=== PATIENT | male | born 1940 | race Caucasian/White ===

== ENCOUNTER 2016-11-21 07:36 | Observation (INO) ==
--- NOTE | 2016-11-21 07:50 | Emergency Department Note ---
Disposition Clinical Impression: Near syncope, Renal insufficiency Disposition: Admitted As Inpatient Condition: Fair Referrals: NO,PCP [Non-Partnered Physician] - Forms: ED Satisfaction Letter Time of Disposition: 09:36 Dizziness HPI - General Chief Complaint: ED Dizziness Stated Complaint: dizzy Time Seen by Provider: 11/21/16 07:43 Source: patient Limitations: no limitations Nursing Notes Reviewed: Yes Vital Signs Reviewed: Yes - History of Present Illness HPI Narrative: 76-year-old who is here with his who states he's had dizziness and near syncope for the last 3 days. Patient has no history of that. Denies any pain. Pt Subjective Complaint: dizziness, lightheadedness, near syncope Onset (ago): day(s) (3) Timing: unsure Description: lightheadedness History of similar episodes: No History of trauma: No Severity: moderate Improves with: nothing Worsens with: nothing - Related Data Home Medications Medication Instructions Recorded Confirmed Lisinopril [Zestril] 10 mg PO DAILY 06/06/15 07/05/15 Megestrol Acetate [Megace] 400 mg PO DAILY 06/06/15 07/05/15 Previous Rx's Medication Instructions Recorded Aspirin [Adult Low Dose Aspirin EC] 81 mg PO DAILY #30 tablet. 06/06/15 Pantoprazole Sodium [Protonix] 40 mg PO DAILY #30 tab 06/06/15 Oxycodone HCl/Acetaminophen 1 each PO Q6-8H PRN #10 tablet 06/15/16 [Percocet 5-325 mg Tablet] Tamsulosin [Flomax] 0.4 mg PO DAILY #20 capsule 06/15/16 Allergies Allergy/AdvReac Type Severity Reaction Status Date / Time Iodinated Contrast Media - AdvReac Hallucinati Verified 06/15/16 02:30 Oral and ng All systems ED: reviewed and negative except as stated. Constitutional: Denies: fever, chills, weakness, weight change Eyes: Denies: eye pain, eye discharge, vision change ENT ED: Denies: ear pain, throat pain, dental pain, hearing loss, epistaxis, congestion, dysphagia Cardiovascular: Reports: other (Lightheaded). Denies: chest pain, palpitations , dyspnea on exertion, edema, syncope Respiratory: Denies: cough, dyspnea, wheezes, hemoptysis, stridor Gastrointestinal: Denies: abdominal pain, nausea, vomiting, diarrhea, constipation, hematemesis, melena, hematochezia Genitourinary: Denies: urgency, dysuria, frequency, hematuria Musculoskeletal: Denies: back pain, neck pain, arthralgia, myalgia Integumentary: Denies: rash, abrasion, lesions Neurological: Denies: headache, weakness, numbness, paresthesias, confusion, abnormal gait, vertigo Psychiatric: Denies: anxiety, depression, suicidal thoughts, homicidal thoughts , auditory hallucinations, visual hallucinations Endocrine: Denies: fatigue Hematological/Lymphatic: Denies: easy bleeding, easy bruising Allergic/Immunologic: Denies: facial swelling, urticaria Past Medical History - Past Medical History Medical history: Reports: cancer, CVA, hypertension, kidney stones Psychiatric history: Reports: no psych history - Social History Smoking Status: Light tobacco smoker Smokeless Tobacco Status: No Alcohol use: Reports: none Drug use: Reports: none Physical Exam - General Limitations: no limitations General appearance: alert - Head Head exam: atraumatic, normocephalic, normal inspection - Eye Eye exam: Present: normal appearance, PERRL, EOMI - ENT ENT exam: normal exam, normal oropharynx, mucous membranes moist - Neck Neck exam: Present: normal inspection, full ROM, trachea midline - Chest Chest inspection: Present: normal inspection, symmetric chest wall rise - Respiratory Respiratory exam: Present: normal lung sounds bilaterally - Cardiovascular Cardiovascular exam: Present: regular rate, normal rhythm, normal heart sounds - Abdominal Exam Abdominal exam: Present: soft, Non-Tender. Absent: tenderness, distention, guarding, rebound, rigidity - Extremities Exam Extremities exam: Present: normal inspection, full ROM. Absent: tenderness, pedal edema - Expanded Lower Extremity Exam Neurovascular/Tendon exam: Absent: motor deficit, sensory deficit, tendon deficit Gait: observed and normal - Back Exam Back exam: Present: normal inspection, full ROM. Absent: tenderness - Neurological Exam Neurological exam: Present: alert, oriented X3 - Psychiatric Psychiatric exam: Present: normal affect, normal mood - Skin Skin exam: Present: warm, dry, intact, normal color Course - Reevaluation(s) Reevaluation #1: 76-year-old male who comes in with his and states that he's had several episodes of dizziness with near syncope. This is new for him. Patient does have a history of renal insufficiency however today it looks little bit worse. Time: 09:35 Vital Signs Temperature 97.4 F L 11/21/16 07:38 Pulse Rate 98 11/21/16 07:38 Respiratory Rate 18 11/21/16 07:38 Blood Pressure 113/76 11/21/16 07:38 O2 Sat by Pulse Oximetry 98 11/21/16 07:38 Temperature 97.4 F L 11/21/16 07:38 Pulse Rate 73 11/21/16 08:30 Respiratory Rate 16 11/21/16 08:30 Blood Pressure 164/71 11/21/16 08:30 O2 Sat by Pulse Oximetry 99 11/21/16 08:30 Oxygen Delivery Oxygen Delivery Room Air Dizziness - Lab Data Lab results reviewed: Yes I reviewed the patient's lab results. Result diagrams: 11/21/16 08:00 11/21/16 08:00 Lab Results 11/21/16 11/21/16 11/21/16 Range/Units 08:00 08:00 08:00 WBC 7.9 (4.3-11.1) K/mcL RBC 4.39 (4.19-5.50) M/mcL Hgb 13.0 (12.9-16.9) g/dL Hct 39.4 (37.5-50.1) % MCV 89.7 (83.0-100.0) fL MCH 29.6 (28.0-33.3) pg MCHC 33.0 (31.6-35.5) g/dL RDW 13.1 (11.5-14.5) % Plt Count 246 (140-400) K/mcL MPV 11.4 (9.4-12.4) fL Immature Gran % 0.1 (0-4) % Seg Neutrophils % 31.2 % Lymphocytes % 36.7 % Monocytes % 11.4 % Eosinophils % 19.3 % Basophils % 1.3 % Neutrophils # 2.5 (1.6-8.9) K/mcL Lymphocytes # 2.9 (0.6-4.6) K/mcL Monocytes # 0.9 (0.0-1.3) K/mcL Eosinophils # 1.5 H (0.0-0.6) K/mcL Basophils # 0.1 (0.0-0.2) K/mcL Sodium 136 (136-145) mEq/L Potassium 4.2 (3.5-4.5) mEq/L Chloride 102 (98-109) mEq/L Carbon Dioxide 23 (19-29) mEq/L BUN 26 (8-26) mg/dL Creatinine 2.16 H (0.72-1.25) mg/dL Est GFR ( Amer) 36 L (> 60) Est GFR (Non-Af Amer) 30 L (> 60) BUN/Creatinine Ratio 12 (6-26) Glucose 85 (70-99) mg/dL Calculated Osmolality 286 (280-300) Calcium 10.1 (8.6-10.8) mg/dL Troponin I 0.00 (0-0.03) ng/mL - Radiology Data Radiology results reviewed: Yes I reviewed the patient's radiology results. Chest X-Ray 11/21/16 07:43 IMPRESSION: No acute process. D/ / Abimael Thompson MD / Abimael Thompson MD Interpreting Provider: Abimael Thompson MD Head CT 11/21/16 07:43 IMPRESSION: No acute intracranial abnormality. D/ / Sidney Pizano MD / Sidney Pizano MD Interpreting Provider: Sidney Pizano MD - EKG Data EKG attestation: Yes I reviewed and interpreted this EKG. EKG shows normal: sinus rhythm Rate: normal Rhythm: NSR Interpretation: no acute changes
[2016-11-21 08:14] LABS: Basophils # 0.1 K/mcL (0.0-0.2); Basophils % 1.3 %; Eosinophils # 1.5 K/mcL (0.0-0.6); Eosinophils % 19.3 %; Hematocrit 39.4 % (37.5-50.1); Immature Granulocytes % 0.1 % (0-4); Lymphocytes # 2.9 K/mcL (0.6-4.6); Lymphocytes % 36.7 %; Mean Corpuscular Hemoglobin 29.6 pg (28.0-33.3); Mean Corpuscular Volume 89.7 fL (83.0-100.0); Mean Platelet Volume 11.4 fL (9.4-12.4); Monocytes # 0.9 K/mcL (0.0-1.3); Monocytes % 11.4 %; Neutrophils # 2.5 K/mcL (1.6-8.9); Platelet Count 246 K/mcL (140-400); Red Blood Count 4.39 M/mcL (4.19-5.50); Red Cell Distribution Width 13.1 % (11.5-14.5); Segmented Neutrophils % 31.2 %
[2016-11-21 08:24] LABS: Calcium 10.1 mg/dL (8.6-10.8); Potassium 4.2 mEq/L (3.5-4.5)
[2016-11-21 10:06] LABS: Bilirubin,Urine Small (Negative); Blood,Urine Small (Negative); Clarity,Urine Clear (Clear); Color,Urine Yellow (Yellow); Glucose,Urine (UA) Normal (Normal); Ketones,Urine Trace mg/dL (Negative); Leukocyte Esterase,Urine Negative (Negative); Nitrite,Urine Negative (Negative); Protein,Urine Negative (Neg-Trace); Specific Gravity,Urine 1.023 (1.010-1.025); Urobilinogen,Urine Normal (Normal)
[2016-11-21 10:08] LABS: Bacteria,Urine None Seen per hpf (None-Few); Hyaline Casts,Urine Few per lpf (None-Few); RBC,Urine 15-30 per hpf (0-3); Squamous Epithelial Cell,Urine Many per lpf (None-Few); WBC,Urine 0-3 per hpf (0-3)
[2016-11-21] MEDS ORDERED: Naloxone 0.4 MG/ML INJ IVP PRN ×2 (10:08→10:18)
--- NOTE | 2016-11-21 10:54 | Internal Med History&Physical ---
Date of Encounter: 11/21/16 Time of Encounter: 10:00 Assessment and Plan (1) Dizziness Current visit: Yes Status: Acute Assess: Mr. Castillo is a 76 year old male who presents from the ED today with chief complaint of dizziness and pre-syncope symptoms. Patient's is presently in the ED being seen for another health issue when he came to see her. He reports he became dizzy while in the ED and asked to have his blood pressure taken due to his symptoms. ED personnel admitted the patient. During examination and assessment, the patient reported he experiences dizziness every day with the sensation of spinning as well as lightheadedness. He also states that he becomes dizzy when he stands too quickly. Patient stated that he black out 2-3 months ago. Mr. 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 Plan: Repeat EKGs Continuous cardiac monitoring Continuous pulse ox monitoring Trend troponins x2 0.9 NS 80 ml/hr ordered O2 2l ordered with titration if SpO2 <92% EV bilateral carotid duplex imaging Norvasc 5 mg daily ordered for HTN Falls precautions ordered Up with assist Monitor patient's vital signs Monitor patient closely (2) Lightheadedness Current visit: Yes Status: Acute Assess: Mr. Castillo is a 76 year old male who presents from the ED today with chief complaint of dizziness and pre-syncope symptoms. Patient's is presently in the ED being seen for another health issue when he came to see her. He reports he became dizzy while in the ED and asked to have his blood pressure taken due to his symptoms. ED personnel admitted the patient. During examination and assessment, the patient reported he experiences dizziness every day with the sensation of spinning as well as lightheadedness. He also states that he becomes dizzy when he stands too quickly. Patient stated that he black out 2-3 months ago. Mr. 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 Plan: Repeat EKGs Continuous cardiac monitoring Continuous pulse ox monitoring Trend troponins x2 0.9 NS 80 ml/hr ordered O2 2l ordered with titration if SpO2 <92% EV bilateral carotid duplex imaging Norvasc 5 mg daily ordered for HTN Falls precautions ordered Up with assist Monitor patient's vital signs Monitor patient closely (3) Hypertension Current visit: Yes Status: Chronic Assess: Patient presents with history of hypertension. Plan: Norvasc 5 mg daily ordered Monitor patient's vital signs Monitor patient for hypotension Falls precautions ordered Up with assist Qualifiers: Hypertension type: essential hypertension Qualified Code(s): I10 - Essential (primary) hypertension (4) Renal insufficiency Current visit: Yes Status: Chronic Assess: Patient presents with history of renal insufficiency. Patient's GFR is currently 30. Plan: 0.9 NS IV fluids ordered judiciously at 80 ml/hr Norvasc 5 mg daily ordered for HTN due to renal insufficiency Monitor patient's I&O Monitor patient's vital signs Monitor patient's weight daily (5) DVT prophylaxis Current visit: Yes Status: Acute Assess: Patient placed on DVT prophylaxis due to bed rest status and inpatient status. Plan: Heparin 5,000 SQ Q12HR ordered Monitor patient closely for signs of neurological decline or difficulty breathing Monitor patient's vital signs Internal Medicine - H&P: HPI Chief complaint: Dizziness, Pre-syncope Admitted From: Emergency Dept Plans for Post Hospital Care: Home History of present illness: Mr. Castillo is a 76 year old male who presents from the ED today with chief complaint of dizziness and pre-syncope symptoms. Patient's is presently in the ED being seen for another health issue when he came to see her. He reports he became dizzy while in the ED and asked to have his blood pressure taken due to his symptoms. ED personnel admitted the patient. During examination and assessment, the patient reported he experiences dizziness every day with the sensation of spinning as well as lightheadedness. He also states that he becomes dizzy when he stands too quickly. Patient stated that he black out 2-3 months ago. Mr. 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 He states that he still drools from the left side of his mouth occasionally. Speech deficit is evident. The patient reports a loss of appetite over the past 2 months and states he only eats two bananas and drinks two Boosts per day. Mr. Castillo also reports having headaches of varying strengths every day and periods of double vision in his right eye over the past several months. Patient also reports his legs become achy bilaterally with walking from foot to hip. 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 Mr. Castillo is seen annually at [facility] for follow-ups. Patiebt reports that he sleeps 8-10 hours nightly and wakes up tired everyday. When asked about code status, patient states he does not want resuscitated following a cardiac or respiratory event. He states he is ready to but denies thoughts and actions of self- harm. Patient denies chest pains, SOB, recent illness, or any other health issues. 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 Mr. Castillo has a history of CVA, cancer, HTN, and kidney stones. Mr. Castillo is to be admitted as observation status with consults ordered for PT, OT, Nutrition, and [employer]. Bilateral carotid doppler imaging has been ordered as well as continuous cardiac monitoring, continuous SpO2 monitoring, and bed rest with assist. We will continue to monitor Mr. Castillo closely. Past Med Surg Social Fam HX - Past Medical History Source: patient Medical history: cancer, CVA, hypertension, kidney stones Psychiatric history: no psych history - Past Surgical History Surgical History: other (Eye surgery) - Social History Smoking Status: Light tobacco smoker Smokeless Tobacco Status: No Alcohol use: none Drug use: none Occupational status: retired Current living situation: Home, With Family Activity Level: Uses cane/walker Recent Out of Country Travel Within the Last 8 Weeks: No Exposure or Possible Exposure to Illness During Travel: No - Family History Father Race: Family Member Ethnicity: Non- Living Status: Age at : 56 Cause of : DM complications Hx Family Endocrine Disorder: Yes (DM) Mother Race: Family Member Ethnicity: Non- Living Status: Age at : 97 Cause of : Heart gave out Hx Family Cardiac Disorders: No Brother Race: Family Member Ethnicity: Non- Living Status: Age at : 93 Hx Family GI Disorders: Yes (Unknown) Sister Race: Family Member Ethnicity: Non- Living Status: Age at : 50 Cause of : Cancer - type unknown Hx Family Cancer: Yes (Unknown) Internal Medicine - H&P: Meds Aspirin [Adult Low Dose Aspirin EC] 243 mg PO DAILY 11/21/16 [History] Ibuprofen [Advil] 200 mg PO DAILY 11/21/16 [History] Lactose-Reduced Food [Boost] 237 ml PO BID 11/21/16 [History] Allergies Iodinated Contrast Media - Oral and Adverse Reaction (Verified 06/15/16 02:30) Hallucinating All Systems PM: A 10-system review of systems was performed and is negative for pertinent findings except as documented above in the HPI. - Constitutional Constitutional: as per HPI, anorexia (Loss of appetite over the past 2 months following cancer therapy), falls (Reports he blacked out and fell 2-3 months ago ) - EENT Eyes: as per HPI, change in vision (Reports double vision in his right eye) Ears: no ear discharge, no ear pain, no tinnitus Nose, mouth and throat: no dysphagia, no nasal discharge, no neck pain, no sore throat - Breasts Breasts: as per HPI - Cardiovascular Cardiovascular ROS IM: no chest pain, no diaphoresis, no dyspnea, no lightheadedness, no palpitations, no syncope - Respiratory Respiratory: no cough, no dyspnea, no wheezing, no excessive phlegm production - Gastrointestinal Gastrointestinal: no abdominal pain, no diarrhea, no hematemesis, no hematochezia, no melena, no nausea, no vomiting - Genitourinary Genitourinary ROS male: difficulty urinating (Patient states that he cannot empty his bladder fully due to slow, incomplete stream), other (Patient reports erectile dysfunction following cancer therapy) - Musculoskeletal Musculoskeletal ROS IM: no numbness, no tingling - Integumentary Integumentary IM: no rash, no unusual bruising - Neurological Neurological ROS: as per HPI, abnormal speech, dizziness, headache(s), other visual disturbances - Psychiatric Psychiatric: as per HPI, change in appetite - Endocrine Endocrine IM: as per HPI, fatigue - Hematologic/Lymphatic Hematologic/Lymphatic: no easy bruising - Allergic/Immunologic Allergic/Immunologic: as per HPI - Constitutional Vitals: Temp Pulse Resp BP Pulse Ox 97.4 F L 76 16 176/81 97 11/21/16 07:38 11/21/16 09:30 11/21/16 09:59 11/21/16 09:59 11/21/16 09:30 General appearance: Present: cooperative, A&O X 3, pleasant, no acute distress, loss of weight, answers questions appropriately - Head Head exam: Present: atraumatic, normocephalic - Eye Eye exam: Present: PERRL, conjuntiva pink, sclera anicteric Pupils: Present: PERRL - ENT ENT exam: Present: normal exam, normal external ear exam - Neck Neck exam general surgery: Present: supple, trachea midline. Absent: lymphadenopathy - Respiratory Respiratory exam: Present: CTAB. Absent: accessory muscle use, rales, rhonchi, wheezes - Cardiovascular Cardiovascular exam: Present: RRR, +S1, +S2. Absent: diastolic murmur, gallop, rubs, systolic murmur - GI/Abdominal GI/Abdominal exam: Present: normal bowel sounds, soft, no peritoneal signs. Absent: distended, tenderness - Rectal Rectal exam: Present: deferred - Additional comments: exam deferred. - Extremities Exam Extremities exam: Present: warm, radial pulses palpable and symetrical. Absent : calf tenderness, cyanotic, pedal edema - Back Exam Back exam: Present: normal inspection - Neurological Exam Neurological exam: Present: alert, oriented X3, reflexes normal, no focal deficits, strengths equal and symetr throughout, speech deficit (Related to prior CVA) - Psychiatric Psychiatric exam: Present: normal affect, normal mood - Skin Skin exam: Present: dry, intact Internal Med - H&P Results - Labs CBC & Chem 7: 11/21/16 08:00 11/21/16 08:00 - EKG Data EKG shows normal: sinus rhythm - EKG Data Prior EKG available for review: yes When compared to previous EKG: there is no significant change Interpretation IM: normal EKG EKG comments: 11/21/16 11:59 EKG dated 10/05/15 shows sinus rhythm. EKG dated 11/21/16 shows sinus rhythm. - Diagnostic Studies CT scan - head Additional comments: CT of head without contrast dated 11/21/16 shows no acute intracranial abnormality.
[2016-11-21] MEDS: 0.9 % Sodium Chloride 1,000 ML IVC SCH ×2 (10:55→23:25)
--- NOTE | 2016-11-21 11:28 | Event Note ---
Date of Encounter: 11/21/16 Time of Encounter: 11:25 Patient seen and examined with nurse practitioner. Episodes of lightheadedness likely related to orthostasis. He has been taken off his blood pressure medications. He has acute kidney injury. Will check orthostatic's. Hydration. Exam shows no focal neurological deficits. CT scan of the head showed no evidence of intracranial bleed or stroke. Check carotid Doppler's. Telemetry monitoring. Observation admission
[2016-11-21] MEDS: amLODIPine 5 MG TABLET PO SCH (12:51)
[2016-11-21] MEDS: Acetaminophen 325 MG TABLET PO PRN ×2 (17:19→23:24)
[2016-11-21] MEDS: *HR* Heparin 5,000 UNIT/ML VIAL SQ SCH (17:20)
--- NOTE | 2016-11-21 17:47 | Electrocardiograph Report ---
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
[2016-11-21] MEDS ORDERED: NON-FORMULARY MEDICATION 1 EACH EACH (Lactose-Reduced Food [Boost] 237 ML) PO SCH (21:00)
[2016-11-22] MEDS: *HR* Heparin 5,000 UNIT/ML VIAL SQ SCH (06:05)
[2016-11-22 06:32] LABS: Basophils # 0.1 K/mcL (0.0-0.2); Basophils % 1.5 %; Eosinophils # 1.1 K/mcL (0.0-0.6); Eosinophils % 18.7 %; Hematocrit 31.9 % (37.5-50.1); Immature Granulocytes % 0.2 % (0-4); Lymphocytes # 2.6 K/mcL (0.6-4.6); Lymphocytes % 43.5 %; Mean Corpuscular HGB Conc 34.5 g/dL (31.6-35.5); Mean Corpuscular Hemoglobin 30.8 pg (28.0-33.3); Mean Corpuscular Volume 89.4 fL (83.0-100.0); Monocytes # 0.8 K/mcL (0.0-1.3); Monocytes % 12.7 %; Neutrophils # 1.4 K/mcL (1.6-8.9); Platelet Count 203 K/mcL (140-400); Red Blood Count 3.57 M/mcL (4.19-5.50); Segmented Neutrophils % 23.4 %
[2016-11-22 06:36] LABS: INR 1.1; Prothrombin Time 12.4 Seconds (9.4-12.1)
[2016-11-22 06:39] LABS: Activated Partial Thrombo Time 34.6 Seconds (26.0-36.0)
[2016-11-22 06:47] LABS: Albumin 3.1 g/dL (3.5-5.0); Albumin/Globulin Ratio 1.2 (1.1-2.2); Bilirubin,Total 0.5 mg/dL (0.2-1.2); Calcium 8.8 mg/dL (8.6-10.8); Chol/HDL Ratio 8.6 (0-4.9); Globulin 2.6 g/dL (2.4-3.5); Magnesium 1.7 mg/dL (1.6-2.6); Potassium 4.1 mEq/L (3.5-4.5); Total Protein 5.7 g/dL (6.0-8.3)
[2016-11-22] MEDS: Acetaminophen 325 MG TABLET PO PRN (07:51)
[2016-11-22] MEDS: amLODIPine 5 MG TABLET PO SCH (07:52)
[2016-11-22] MEDS ORDERED: Aspirin Enteric Coated 81 MG Tablet PO SCH (09:00)
[2016-11-22] MEDS ORDERED: Ibuprofen 200 MG TABLET PO SCH (09:00)
--- NOTE | 2016-11-22 10:53 | Discharge Summary ---
Date of Encounter: 11/22/16 Time of Encounter: 09:30 - Discharge Diagnosis (1) Lightheadedness Priority: Primary Status: Resolved (2) Dizziness Priority: Primary Status: Resolved (3) CVA, old, aphasia Priority: Secondary Status: Chronic Comments: Patient with prior infarct with subsequent left-sided weakness and mild speech impediment, speech is fluid and intelligible but slurred. (4) CKD (chronic kidney disease) stage 3, GFR 30-59 ml/min Priority: Secondary Status: Chronic Comments: Remained stable throughout this admission (5) Near syncope Priority: Primary Status: Acute (6) DVT prophylaxis Priority: Primary Status: Acute Comments: Subcutaneous heparin while admitted (7) Hypertension Priority: Secondary Status: Chronic Comments: Prior to this admission, patient was not on any antihypertensive medications. He was started on Norvasc during this admission, normotensive on day of discharge. Qualifiers: Hypertension type: essential hypertension Qualified Code(s): I10 - Essential (primary) hypertension (8) GERD (gastroesophageal reflux disease) Priority: Secondary Status: Chronic - Discharge Medications Prescriptions: Amlodipine [Norvasc] 5 mg PO DAILY #30 tablet Megestrol Acetate [Megace] 40 mg PO DAILY #30 tablet Home Medications: Aspirin [Adult Low Dose Aspirin EC] 243 mg PO DAILY 11/21/16 [History] Ibuprofen [Advil] 200 mg PO DAILY 11/21/16 [History] Lactose-Reduced Food [Boost] 237 ml PO BID 11/21/16 [History] Amlodipine [Norvasc] 5 mg PO DAILY #30 tablet 11/22/16 [Rx] Megestrol Acetate [Megace] 40 mg PO DAILY #30 tablet 11/22/16 [Rx] Allergies/Adverse Reactions: Allergies Iodinated Contrast Media - Oral and Adverse Reaction (Verified 06/15/16 02:30) Hallucinating Procedures/tests Complete & Pending: Procedures Performed prior 72 hours Category Date Time Status EV carotid duplex imaging BI Routine Y 11/21/16 10:33 Completed Date of admission: 11/21/16 09:44 Primary care physician: Robert Villa MD Consults: 11/21/16 10:11 Consult to Inductor Tester [CONS] Routine Reason for SW Consult: 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 Patient continues to have speech deficit Call Completed: Yes 11/21/16 10:37 Consult to Occupational Therapy [CONS] Routine Comment: Evaluate, develop and implement POC Reason for Consult: History of CVA with deficit Consult to Physical Therapy [CONS] Routine Comment: Evaluate, develop and implement POC Reason for Consult: History of CVA with deficit 11/21/16 10:38 Consult to Nutrition [CONS] Routine Comment: Consulting Provider: NUTRITION Reason for Dietary Consult: Other Other:: Reduced appetite for past 2 months Discharging clinician: Ramya Patton Anticipated date of discharge: 11/22/16 - Patient Status Disposition: Home, Self-Care Condition: Fair Functional capacity at discharge: independent ambulation Overall status at discharge: patient is back to baseline - Discharge Instructions Follow Up With: Robert Villa MD [Primary Care Provider] - Additional Instructions: follow up with primary care provider within one to 2 weeks - Diet and Activity Activity: increase activity as tolerated Diet: low salt diet Hospital course: Mr. Castillo is a 76 year old male with past medical history of hypertension, prior CVA with resultant left sided weakness and mild slurred speech. He presented to the emergency room with a chief complaint of dizziness and presyncopal symptoms. Patient was already at the hospital with his . He reports that while here, he became dizzy in the emergency department and he asked to have his blood pressure taken and at that time, the emergency department admitted him. Patient reported dizziness every day and a sensation of spinning as well as lightheadedness. He also endorses dizziness upon standing. Patient also endorsed loss of appetite over the past 2 months and states he only eats 2 bananas and drinks 2 boosts per day. Patient also endorsed headaches with episodes of double vision over the past several months. He also states that his legs became achy while walking. 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 He is the sole caregiver of his who's suffering from Alzheimer's. Workup in the emergency department unremarkable. Chest x-ray negative. Head CT negative. Urinalysis negative. Patient was admitted to the hospitalist service for further evaluation and management. Carotid ultrasound with bilateral moderate stenosis, follow-up outpatient. During this examination , he had no new focal neurological weaknesses. He remained with mild left- sided weakness and mild speech impediment but his speech remained fluid and intelligible. On day of discharge, patient denied dizziness or lightheadedness and was ambulatory with back to his baseline. He was seen and evaluated by occupational and physical therapy both for recommending returning to his prior situation. Speech therapy had no recommendations for speech treatment. Regarding his poor by mouth intake, patient was started on Megace and his appetite improves so he will be sent home with it. He is also not on any medications for his hypertension and he was hypertensive. He was started on amlodipine and was normotensive on day of discharge. Recommend daily blood pressure checks and follow up with primary care provider. He was discharged home in stable condition with close outpatient follow-up recommended. ITS Impressions Chest X-Ray 11/21/16 07:43 IMPRESSION: No acute process. D/ / Abimael Thompson MD / Abimael Thompson MD Interpreting Provider: Abimael Thompson MD Head CT 11/21/16 07:43 IMPRESSION: No acute intracranial abnormality. D/ / Sidney Pizano MD / Sidney Pizano MD Interpreting Provider: Sidney Pizano MD - Time Spent with Patient Total time spent providing and/or coordinating discharge services: - Constitutional Vitals: Temp Pulse Resp BP Pulse Ox 97.8 F 68 17 132/64 93 11/22/16 07:06 11/22/16 07:06 11/22/16 07:06 11/22/16 07:06 11/22/16 07:44 General appearance: Present: cooperative, A&O X 3, pleasant, no acute distress, loss of weight, answers questions appropriately - Head Head exam: Present: atraumatic, normocephalic - Eye Eye exam: Present: PERRL, conjuntiva pink, sclera anicteric Pupils: Present: PERRL - Neck Neck exam general surgery: Present: supple, trachea midline. Absent: lymphadenopathy - Respiratory Respiratory exam: Present: CTAB. Absent: accessory muscle use, rales, respiratory distress, rhonchi, wheezes - Cardiovascular Cardiovascular exam: Present: RRR, +S1, +S2. Absent: diastolic murmur, gallop, rubs, systolic murmur - GI/Abdominal GI/Abdominal exam: Present: normal bowel sounds, soft, no peritoneal signs. Absent: distended, tenderness - Extremities Exam Extremities exam: Present: warm, radial pulses palpable and symetrical. Absent : calf tenderness, cyanotic, pedal edema - Neurological Exam Neurological exam: Present: alert, CN II-XII intact, oriented X3, no focal deficits, speech deficit (chronic). Absent: strengths equal and symetr throughout, pronater drift, facial droop - Skin Skin exam: Present: dry, intact, normal color, warm
[2016-11-22 11:29] VITALS: BP 162/69
--- NOTE | 2016-11-23 12:25 | Carotid Imaging Report ---
Carotid Duplex Patient Name:Anibal Castillo Order Number:[id number] Procedure Date:11/21/2016 Date:8Age:76 yrs Gender:Male Lt BP:136 / 65 mmHg Rt.BP:136 / 65 mmHgHeart Rate: Location:[facility] Room #: 3B23 Supervisor Blood Donor Recruiters:Tracy Mera Referring MD:Bakari Newton CNP parachute folder:Robert Villa MD Reading MD:Dav Nath MD Primary Indications:Dizziness Risk Factors Yes/No Hypertension Hypercholesterolemia Hx of CVA Smoker Previous Impressions: Findings: Bilateral carotid bifurcations has a moderate, 40-59% stenosis. Findings Carotid Duplex: Right: There is nonstenotic plaque in the right proximal common carotid artery. There is smooth homogeneous plaque. There is nonstenotic plaque in the right mid common carotid artery. There is smooth homogeneous plaque. There is nonstenotic plaque in the right distal common carotid artery. There is smooth homogeneous plaque. There is 40-59% stenosis in the right bifurcation. There is smooth homogeneous plaque. There is 40-59% stenosis in the right proximal internal carotid artery. There is smooth homogeneous plaque. The right eca has turbulent flow with plaque. There is smooth homogeneous plaque. Left: There is nonstenotic plaque in the left proximal common carotid artery. There is smooth heterogeneous plaque. There is nonstenotic plaque in the left mid common carotid artery. There is smooth heterogeneous plaque. There is nonstenotic plaque in the left distal common carotid artery. There is smooth homogeneous plaque. There is 40-59% stenosis in the left bifurcation. There is smooth, homogeneous calcified plaque. There is 40-59% stenosis in the left proximal internal carotid artery. There is smooth homogeneous plaque. There is 40-59% stenosis in the left mid internal carotid artery. There is smooth homogeneous plaque. There is 40-59% stenosis in the left distal internal carotid artery. There is smooth homogeneous plaque. The left eca has turbulent flow with plaque. There is smooth heterogeneous plaque. Carotid Results Right PSV EDV Assessment Proximal CCA 119 17 Non Stenotic Plaque Mid CCA 119 16 Non Stenotic Plaque Distal CCA 101 15 Non Stenotic Plaque Bifurcation 124 18 40-59% stenosis Proximal ICA 121 24 40-59% stenosis Mid ICA 87 21 Normal Distal ICA 99 25 Normal ECA 218 25 Non Stenotic Plaque Vertebral Artery 62 17 Antegrade Flow Left PSV EDV Assessment Proximal CCA 149 22 Non Stenotic Plaque Mid CCA 121 24 Non Stenotic Plaque Distal CCA 122 16 Non Stenotic Plaque Bifurcation 157 30 40-59% stenosis Proximal ICA 161 31 40-59% stenosis Mid ICA 168 36 40-59% stenosis Distal ICA 173 35 40-59% stenosis ECA 259 25 Non Stenotic Plaque Vertebral Artery 150 39 Antegrade Flow Ratio's Right ICA/CCA Ratio: 1.02 ICA/CCA Values: 121/119 Left ICA/CCA Ratio: 1.43 ICA/CCA Values: 173/121 Updated by Dav Nath MD on 11/23/2016 12:21:47 PM electronically signed on 11/23/2016 12:22:08 PM with status of Final
== END 2016-11-22 12:02 | disposition home or self-care (01) ==
LOC: 3BNU 07:36 → EMEROO 07:36 → 3BNU 10:13
PROVIDERS: ADMIT Nurse Practitioner Family; ATTEND Nurse Practitioner Family

== ENCOUNTER 2019-02-19 03:23 | Inpatient (IN) ==
--- NOTE | 2019-02-19 04:02 | Emergency Department Note ---
Disposition Clinical Impression: Generalized weakness, Acute kidney injury superimposed on chronic kidney disease UTI (urinary tract infection) Qualifiers: Urinary tract infection type: acute cystitis Hematuria presence: without hematuria Qualified Code(s): N30.00 - Acute cystitis without hematuria Disposition: Admitted As Inpatient Condition: Fair Time of Disposition: 05:53 General Adult HPI - General Chief complaint: ED Weakness Stated complaint: nausea Time Seen by Provider: 02/19/19 03:29 Source: patient, EMS Mode of arrival: EMS Limitations: no limitations Nursing Notes Reviewed: Yes Vital Signs Reviewed: Yes - History of Present Illness HPI Narrative: 78-year-old male presents emergency department via EMS for 3 days of feeling "weak" (requiring needing support of furniture to ambulate around the house), "just not feeling well". He has had some nausea and some sore throat. He states he generally just does not feel well. He states he has been hot and cold but he does not think he has had a fever, he states "almost always cold but I have been more cold". He does state that he has frequency urination that has been "going on for really long time". Patient unable to really say what has been feeling ill other than just generally feeling ill. When asked if he was having any chest pain he stated yes but is unable to really clarify, he states this going on for days. He is not having any pain at the time of arrival and assessment He denies falling, alteration in mental status, fevers, rhinorrhea, congestion, ear pain, shortness of breath, coughing, palpitations, edema, abdominal pain, vomiting, constipation, diarrhea, hematemesis, hematochezia, melena. Pt lives alone with spouse of 56 years. Onset (ago): day(s) Pain Scale: 0 Associated symptoms: Reports: chest pain (resolved and "for days"), fever/chills (chills only), nausea/vomiting (nausea only), weakness. Denies: confusion, cough, diaphoresis, headaches, loss of appetite, malaise, rash, seizure, shortness of breath, syncope Treatments Prior to Arrival: none - Related Data Home Medications Medication Instructions Recorded Confirmed Aspirin [Adult Low Dose Aspirin EC] 81 mg PO DAILY 11/21/16 02/19/19 Lactose-Reduced Food [Boost] 237 ml PO BID 11/21/16 02/19/19 Megestrol Acetate [Megace] 10 ml PO DAILY PRN 02/19/19 02/19/19 Previous Rx's Medication Instructions Recorded Megestrol Acetate [Megace] 40 mg PO DAILY #30 tablet 11/22/16 amLODIPine [Norvasc] 5 mg PO DAILY #30 tablet 11/22/16 Allergies Allergy/AdvReac Type Severity Reaction Status Date / Time Iodinated Contrast- Oral and AdvReac Hallucinati Verified 11/30/17 14:58 IV Dye ng All systems ED: reviewed and negative except as stated. Review of Systems: As Per HPI Past Medical History - Past Medical History Attestation: Yes The following information was validated with the patient. Source: patient, old records reviewed Medical history: Reports: cancer, CVA, GERD, hypertension, kidney stones, renal disease (ckd3) Surgical history: Reports: other (Eye surgery) Psychiatric history: Reports: no psych history - Social History Smoking Status: Light tobacco smoker Smokeless Tobacco Status: No Alcohol use: Reports: none Drug use: Reports: none Physical Exam - General Limitations: no limitations General appearance: alert, in no apparent distress - Head Head exam: atraumatic, normocephalic, normal inspection - Eye Eye exam: Present: normal appearance, PERRL, EOMI - ENT ENT exam: normal oropharynx, mucous membranes moist, TM's normal bilaterally, other (PND) - Neck Neck exam: Present: normal inspection, full ROM, trachea midline. Absent: tenderness, meningismus, lymphadenopathy - Chest Chest inspection: Present: normal inspection, symmetric chest wall rise - Respiratory Respiratory exam: Present: normal lung sounds bilaterally - Cardiovascular Cardiovascular exam: Present: regular rate, normal rhythm, normal heart sounds - Abdominal Exam Abdominal exam: Present: soft, Non-Tender, normal bowel sounds. Absent: tenderness, distention, guarding, rebound, rigidity - Extremities Exam Extremities exam: Present: normal inspection, full ROM. Absent: tenderness, pedal edema - Back Exam Back exam: Present: full ROM - Neurological Exam Neurological exam: Present: alert, oriented X3 - Psychiatric Psychiatric exam: Present: normal affect, normal mood - Skin Skin exam: Present: warm, dry, intact, normal color Course Course Narrative: Thin male in no acute distress. He speaks in full sentences or conversational dyspnea. He arrives afebrile, normotensive, not tachycardic. Appropriate oxygenation on room air. EKG at 03:41 reveals a sinus rhythm with a E[place] 75 bpm, TN interval 1 her 97 ms, QTC 466 ms, no evidence of ischemia or abnormal ectopy, with comparison to previous EKG no acute change. Physical examination is unremarkable. We will obtain basic labs, chest x-ray, urinalysis for infectious process. Given patient lives at home with an elderly spouse, noted increasing weakness he will most likely require admission to the hospital for the generalized weakness for preventing falls, need for rehabilitation. 0520--Patient has been resting quietly. Labs returned with an unremarkable CBC, no evidence of infection. Metabolic panel appears to have acute kidney injury superimposed on chronic kidney disease, creatinine is 2.00 today, this is elevated from an average of 1.7 creatinine. Hepatic panel is unremarkable, negative troponin. Chest x-ray returned unremarkable. UA with positive nitrites, leukocyte esterases. Patient with complaints of urinary frequency, most likely UTI. This is extremely factor to his increasing weakness as well. Anamika to the hospital for antibiotics, rehabilitation evaluation. Patient is agreeable to plan of care. Hospitalist paged at this time. Attending Dr. Asif has had one:one facetime with patient and is agreeable to POC 0550-spoke with hospitalist Dr. Walker, agreeable for admission to the hospital, will monitor during transition. Patient continues to be agreeable to plan of care for admission. Vital Signs Temperature 98 F 02/19/19 03:33 Pulse Rate 82 02/19/19 03:33 Respiratory Rate 18 02/19/19 03:33 Blood Pressure 161/90 02/19/19 03:33 O2 Sat by Pulse Oximetry 99 02/19/19 03:33 Temperature 98.0 F 02/19/19 15:04 Pulse Rate 71 02/19/19 15:04 Respiratory Rate 16 02/19/19 15:04 Blood Pressure 179/75 02/19/19 15:04 O2 Sat by Pulse Oximetry 96 02/19/19 15:04 Oxygen Delivery Oxygen Delivery Room Air Medical Decision Making - Medical Records Medical records reviewed: Yes I reviewed the patient's medical records. - Lab Data Lab results reviewed: Yes I reviewed the patient's lab results. Result diagrams: 02/19/19 03:55 02/19/19 03:55 Lab Results 02/19/19 02/19/19 02/19/19 Range/Units 03:55 03:55 03:55 WBC 10.2 (4.3-11.1) K/mcL RBC 4.65 (4.19-5.50) M/mcL Hgb 14.2 (12.9-16.9) g/dL Hct 41.2 (37.5-50.1) % MCV 88.6 (83.0-100.0) fL MCH 30.5 (28.0-33.3) pg MCHC 34.5 (31.6-35.5) g/dL RDW 13.2 (11.5-14.5) % Plt Count 226 (140-400) K/mcL MPV 11.6 (9.4-12.4) fL Immature Gran % 0.3 (0-4) % Seg Neutrophils % 50.9 % Lymphocytes % 27.0 % Monocytes % 10.2 % Eosinophils % 10.3 % Basophils % 1.3 % Neutrophils # 5.2 (1.6-8.9) K/mcL Lymphocytes # 2.7 (0.6-4.6) K/mcL Monocytes # 1.0 (0.0-1.3) K/mcL Eosinophils # 1.1 H (0.0-0.6) K/mcL Basophils # 0.1 (0.0-0.2) K/mcL PT 12.0 (9.4-12.1) Seconds INR 1.1 Sodium 132 L (136-145) mEq/L Potassium 3.7 (3.5-5.1) mEq/L Chloride 95 L (98-107) mEq/L Carbon Dioxide 21 L (23-29) mEq/L BUN 28 H (8-23) mg/dL Creatinine 2.00 H (0.70-1.30) mg/dL Est GFR ( Amer) 39 L (> 60) Est GFR (Non-Af Amer) 32 L (> 60) BUN/Creatinine Ratio 14 (6-26) Glucose 63 L (70-105) mg/dL Calculated Osmolality 278 L (280-300) Calcium 10.2 (8.6-10.3) mg/dL Total Bilirubin 0.7 (0.3-1.0) mg/dL AST 31 (13-39) Units/L ALT 19 (7-52) Units/L Alkaline Phosphatase 66 (34-104) Units/L Troponin I < 0.03 (< 0.04) ng/mL Serum Total Protein 7.4 (6.4-8.9) g/dL Albumin 4.7 (3.5-5.7) g/dL Globulin 2.7 (2.4-3.5) g/dL Albumin/Globulin Ratio 1.7 (1.1-2.2) Urine Color (Yellow) Urine Clarity (Clear) Urine pH (5.0-8.0) pH Units Ur Specific [place] (1.010-1.025) Urine Protein (Neg-Trace) mg/dL Urine Glucose (UA) (Normal) mg/dL Urine Ketones (Negative) mg/dL Urine Blood (Negative) Urine Nitrite (Negative) Urine Bilirubin (Negative) Urine Urobilinogen (Normal) mg/dL Ur Leukocyte Esterase (Negative) Urine Microscopic RBC (0-3) per hpf Urine Microscopic WBC (0-3) per hpf Ur Squamous Epith Cells (None-Few) per lpf Urine Bacteria (None-Few) per hpf Hyaline Casts (None-Few) per lpf Urine Yeast Ur Culture Indicated? (NO) 02/19/19 Range/Units 04:35 WBC (4.3-11.1) K/mcL RBC (4.19-5.50) M/mcL Hgb (12.9-16.9) g/dL Hct (37.5-50.1) % MCV (83.0-100.0) fL MCH (28.0-33.3) pg MCHC (31.6-35.5) g/dL RDW (11.5-14.5) % Plt Count (140-400) K/mcL MPV (9.4-12.4) fL Immature Gran % (0-4) % Seg Neutrophils % % Lymphocytes % % Monocytes % % Eosinophils % % Basophils % % Neutrophils # (1.6-8.9) K/mcL Lymphocytes # (0.6-4.6) K/mcL Monocytes # (0.0-1.3) K/mcL Eosinophils # (0.0-0.6) K/mcL Basophils # (0.0-0.2) K/mcL PT (9.4-12.1) Seconds INR Sodium (136-145) mEq/L Potassium (3.5-5.1) mEq/L Chloride (98-107) mEq/L Carbon Dioxide (23-29) mEq/L BUN (8-23) mg/dL Creatinine (0.70-1.30) mg/dL Est GFR ( Amer) (> 60) Est GFR (Non-Af Amer) (> 60) BUN/Creatinine Ratio (6-26) Glucose (70-105) mg/dL Calculated Osmolality (280-300) Calcium (8.6-10.3) mg/dL Total Bilirubin (0.3-1.0) mg/dL AST (13-39) Units/L ALT (7-52) Units/L Alkaline Phosphatase (34-104) Units/L Troponin I (< 0.04) ng/mL Serum Total Protein (6.4-8.9) g/dL Albumin (3.5-5.7) g/dL Globulin (2.4-3.5) g/dL Albumin/Globulin Ratio (1.1-2.2) Urine Color Dark Yellow (Yellow) Urine Clarity Clear (Clear) Urine pH 5.0 (5.0-8.0) pH Units Ur Specific [place] 1.024 (1.010-1.025) Urine Protein 30 H (Neg-Trace) mg/dL Urine Glucose (UA) Normal (Normal) mg/dL Urine Ketones 15 H (Negative) mg/dL Urine Blood Negative (Negative) Urine Nitrite Positive A (Negative) Urine Bilirubin Small H (Negative) Urine Urobilinogen Normal (Normal) mg/dL Ur Leukocyte Esterase Trace H (Negative) Urine Microscopic RBC 0-3 (0-3) per hpf Urine Microscopic WBC 0-3 (0-3) per hpf Ur Squamous Epith Cells Many H (None-Few) per lpf Urine Bacteria Many H (None-Few) per hpf Hyaline Casts None Seen (None-Few) per lpf Urine Yeast Test Not Performed Ur Culture Indicated? YES A (NO) - Radiology Data Radiology results reviewed: Yes I reviewed the patient's radiology results. Chest X-Ray 02/19/19 03:30 IMPRESSION: No acute disease. D/ / Dinesh Gomez MD / Dinesh Gomez MD Interpreting Provider: Dinesh Gomez MD - EKG Data EKG #1 EKG attestation: Yes I reviewed and interpreted this EKG. EKG shows normal: sinus rhythm
[2019-02-19 04:14] LABS: Basophils # 0.1 K/mcL (0.0-0.2); Basophils % 1.3 %; Eosinophils # 1.1 K/mcL (0.0-0.6); Eosinophils % 10.3 %; Hematocrit 41.2 % (37.5-50.1); Hemoglobin 14.2 g/dL (12.9-16.9); Immature Granulocytes % 0.3 % (0-4); Lymphocytes # 2.7 K/mcL (0.6-4.6); Mean Corpuscular HGB Conc 34.5 g/dL (31.6-35.5); Mean Corpuscular Hemoglobin 30.5 pg (28.0-33.3); Mean Corpuscular Volume 88.6 fL (83.0-100.0); Mean Platelet Volume 11.6 fL (9.4-12.4); Monocytes % 10.2 %; Neutrophils # 5.2 K/mcL (1.6-8.9); Platelet Count 226 K/mcL (140-400); Red Blood Count 4.65 M/mcL (4.19-5.50); Red Cell Distribution Width 13.2 % (11.5-14.5); Segmented Neutrophils % 50.9 %; White Blood Count 10.2 K/mcL (4.3-11.1)
[2019-02-19 04:34] LABS: INR 1.1
[2019-02-19 04:37] LABS: Alanine Aminotransferase 19 Units/L (7-52); Albumin 4.7 g/dL (3.5-5.7); Albumin/Globulin Ratio 1.7 (1.1-2.2); Alkaline Phosphatase 66 Units/L (34-104); Aspartate Amino Transferase 31 Units/L (13-39); BUN/Creatinine Ratio 14 (6-26); Bilirubin,Total 0.7 mg/dL (0.3-1.0); Blood Urea Nitrogen 28 mg/dL (8-23); Calcium 10.2 mg/dL (8.6-10.3); Carbon Dioxide 21 mEq/L (23-29); Chloride 95 mEq/L (98-107); Globulin 2.7 g/dL (2.4-3.5); Glucose 63 mg/dL (70-105); Osmolality,Calculated 278 (280-300); Potassium 3.7 mEq/L (3.5-5.1); Sodium 132 mEq/L (136-145); Total Protein 7.4 g/dL (6.4-8.9); Troponin I < 0.03 ng/mL (< 0.04); eGFR For African Americans 39 (> 60); eGFR For Non-African Americans 32 (> 60)
[2019-02-19] MEDS ORDERED: 0.9 % Sodium Chloride 1,000 ML IVC ONE (05:06)
[2019-02-19 05:16] LABS: Bilirubin,Urine Small (Negative); Blood,Urine Negative (Negative); Clarity,Urine Clear (Clear); Color,Urine Dark Yellow (Yellow); Glucose,Urine (UA) Normal (Normal); Ketones,Urine 15 mg/dL (Negative); Leukocyte Esterase,Urine Trace (Negative); Nitrite,Urine Positive (Negative); Protein,Urine 30 mg/dL (Neg-Trace); Specific Gravity,Urine 1.024 (1.010-1.025); Urobilinogen,Urine Normal (Normal)
[2019-02-19] MEDS ORDERED: cefTRIAXone 1,000 MG in 0.9 % Sodium Chloride Mini Bag 100 ML IVPB ONE (05:21)
[2019-02-19 05:22] LABS: Hyaline Casts,Urine None Seen per lpf (None-Few); RBC,Urine 0-3 per hpf (0-3); Squamous Epithelial Cell,Urine Many per lpf (None-Few); WBC,Urine 0-3 per hpf (0-3)
[2019-02-19 05:36] LABS: Bacteria,Urine Many per hpf (None-Few)
--- NOTE | 2019-02-19 06:02 | Emergency Department Note ---
Disposition Clinical Impression: Generalized weakness, Acute kidney injury superimposed on chronic kidney disease UTI (urinary tract infection) Qualifiers: Urinary tract infection type: site unspecified Hematuria presence: without hematuria Qualified Code(s): N39.0 - Urinary tract infection, site not specified Disposition: Admitted As Inpatient Condition: Fair Referrals: NONE,PCP [Primary Care Provider] - Forms: ED Satisfaction Letter Time of Disposition: 05:53 General Adult HPI - General Chief complaint: ED Weakness Stated complaint: nausea Time Seen by Provider: 02/19/19 03:29 Source: patient, EMS Mode of arrival: EMS Limitations: no limitations Nursing Notes Reviewed: Yes Vital Signs Reviewed: Yes - History of Present Illness Pain Scale: 0 Associated symptoms: Reports: chest pain (resolved and "for days"), fever/chills (chills only), nausea/vomiting (nausea only), weakness. Denies: confusion, cough, diaphoresis, headaches, loss of appetite, malaise, rash, seizure, shortness of breath, syncope Treatments Prior to Arrival: none - Related Data Home Medications Medication Instructions Recorded Confirmed Aspirin [Adult Low Dose Aspirin EC] 81 mg PO DAILY 11/21/16 11/30/17 Ibuprofen [Advil] 200 mg PO DAILY PRN 11/21/16 11/30/17 Lactose-Reduced Food [Boost] 237 ml PO BID 11/21/16 11/30/17 Previous Rx's Medication Instructions Recorded Megestrol Acetate [Megace] 40 mg PO DAILY #30 tablet 11/22/16 amLODIPine [Norvasc] 5 mg PO DAILY #30 tablet 11/22/16 Megestrol Acetate [Megace] 10 ml PO DAILY #400 mls 11/30/17 Allergies Allergy/AdvReac Type Severity Reaction Status Date / Time Iodinated Contrast- Oral and AdvReac Hallucinati Verified 11/30/17 14:58 IV Dye ng Past Medical History - Past Medical History Medical history: Reports: cancer, CVA, GERD, hypertension, kidney stones, renal disease (ckd3) Surgical history: Reports: other (Eye surgery) Psychiatric history: Reports: no psych history - Social History Smoking Status: Light tobacco smoker Smokeless Tobacco Status: No Alcohol use: Reports: none Drug use: Reports: none Physical Exam - General Limitations: no limitations General appearance: alert, in no apparent distress Course Vital Signs Temperature 98 F 02/19/19 03:33 Pulse Rate 82 02/19/19 03:33 Respiratory Rate 18 02/19/19 03:33 Blood Pressure 161/90 02/19/19 03:33 O2 Sat by Pulse Oximetry 99 02/19/19 03:33 Temperature 98 F 02/19/19 03:33 Pulse Rate 82 02/19/19 03:33 Respiratory Rate 18 02/19/19 03:33 Blood Pressure 161/90 02/19/19 03:33 O2 Sat by Pulse Oximetry 99 02/19/19 03:33 Oxygen Delivery Oxygen Delivery Room Air Medical Decision Making - Medical Records Medical records reviewed: Yes I reviewed the patient's medical records. - Lab Data Lab results reviewed: Yes I reviewed the patient's lab results. Result diagrams: 02/19/19 03:55 02/19/19 03:55 Lab Results 02/19/19 02/19/19 02/19/19 Range/Units 03:55 03:55 03:55 WBC 10.2 (4.3-11.1) K/mcL RBC 4.65 (4.19-5.50) M/mcL Hgb 14.2 (12.9-16.9) g/dL Hct 41.2 (37.5-50.1) % MCV 88.6 (83.0-100.0) fL MCH 30.5 (28.0-33.3) pg MCHC 34.5 (31.6-35.5) g/dL RDW 13.2 (11.5-14.5) % Plt Count 226 (140-400) K/mcL MPV 11.6 (9.4-12.4) fL Immature Gran % 0.3 (0-4) % Seg Neutrophils % 50.9 % Lymphocytes % 27.0 % Monocytes % 10.2 % Eosinophils % 10.3 % Basophils % 1.3 % Neutrophils # 5.2 (1.6-8.9) K/mcL Lymphocytes # 2.7 (0.6-4.6) K/mcL Monocytes # 1.0 (0.0-1.3) K/mcL Eosinophils # 1.1 H (0.0-0.6) K/mcL Basophils # 0.1 (0.0-0.2) K/mcL PT 12.0 (9.4-12.1) Seconds INR 1.1 Sodium 132 L (136-145) mEq/L Potassium 3.7 (3.5-5.1) mEq/L Chloride 95 L (98-107) mEq/L Carbon Dioxide 21 L (23-29) mEq/L BUN 28 H (8-23) mg/dL Creatinine 2.00 H (0.70-1.30) mg/dL Est GFR ( Amer) 39 L (> 60) Est GFR (Non-Af Amer) 32 L (> 60) BUN/Creatinine Ratio 14 (6-26) Glucose 63 L (70-105) mg/dL Calculated Osmolality 278 L (280-300) Calcium 10.2 (8.6-10.3) mg/dL Total Bilirubin 0.7 (0.3-1.0) mg/dL AST 31 (13-39) Units/L ALT 19 (7-52) Units/L Alkaline Phosphatase 66 (34-104) Units/L Troponin I < 0.03 (< 0.04) ng/mL Serum Total Protein 7.4 (6.4-8.9) g/dL Albumin 4.7 (3.5-5.7) g/dL Globulin 2.7 (2.4-3.5) g/dL Albumin/Globulin Ratio 1.7 (1.1-2.2) Urine Color (Yellow) Urine Clarity (Clear) Urine pH (5.0-8.0) pH Units Ur Specific [place] (1.010-1.025) Urine Protein (Neg-Trace) mg/dL Urine Glucose (UA) (Normal) mg/dL Urine Ketones (Negative) mg/dL Urine Blood (Negative) Urine Nitrite (Negative) Urine Bilirubin (Negative) Urine Urobilinogen (Normal) mg/dL Ur Leukocyte Esterase (Negative) Urine Microscopic RBC (0-3) per hpf Urine Microscopic WBC (0-3) per hpf Ur Squamous Epith Cells (None-Few) per lpf Urine Bacteria (None-Few) per hpf Hyaline Casts (None-Few) per lpf Urine Yeast Ur Culture Indicated? (NO) 02/19/19 Range/Units 04:35 WBC (4.3-11.1) K/mcL RBC (4.19-5.50) M/mcL Hgb (12.9-16.9) g/dL Hct (37.5-50.1) % MCV (83.0-100.0) fL MCH (28.0-33.3) pg MCHC (31.6-35.5) g/dL RDW (11.5-14.5) % Plt Count (140-400) K/mcL MPV (9.4-12.4) fL Immature Gran % (0-4) % Seg Neutrophils % % Lymphocytes % % Monocytes % % Eosinophils % % Basophils % % Neutrophils # (1.6-8.9) K/mcL Lymphocytes # (0.6-4.6) K/mcL Monocytes # (0.0-1.3) K/mcL Eosinophils # (0.0-0.6) K/mcL Basophils # (0.0-0.2) K/mcL PT (9.4-12.1) Seconds INR Sodium (136-145) mEq/L Potassium (3.5-5.1) mEq/L Chloride (98-107) mEq/L Carbon Dioxide (23-29) mEq/L BUN (8-23) mg/dL Creatinine (0.70-1.30) mg/dL Est GFR ( Amer) (> 60) Est GFR (Non-Af Amer) (> 60) BUN/Creatinine Ratio (6-26) Glucose (70-105) mg/dL Calculated Osmolality (280-300) Calcium (8.6-10.3) mg/dL Total Bilirubin (0.3-1.0) mg/dL AST (13-39) Units/L ALT (7-52) Units/L Alkaline Phosphatase (34-104) Units/L Troponin I (< 0.04) ng/mL Serum Total Protein (6.4-8.9) g/dL Albumin (3.5-5.7) g/dL Globulin (2.4-3.5) g/dL Albumin/Globulin Ratio (1.1-2.2) Urine Color Dark Yellow (Yellow) Urine Clarity Clear (Clear) Urine pH 5.0 (5.0-8.0) pH Units Ur Specific [place] 1.024 (1.010-1.025) Urine Protein 30 H (Neg-Trace) mg/dL Urine Glucose (UA) Normal (Normal) mg/dL Urine Ketones 15 H (Negative) mg/dL Urine Blood Negative (Negative) Urine Nitrite Positive A (Negative) Urine Bilirubin Small H (Negative) Urine Urobilinogen Normal (Normal) mg/dL Ur Leukocyte Esterase Trace H (Negative) Urine Microscopic RBC 0-3 (0-3) per hpf Urine Microscopic WBC 0-3 (0-3) per hpf Ur Squamous Epith Cells Many H (None-Few) per lpf Urine Bacteria Many H (None-Few) per hpf Hyaline Casts None Seen (None-Few) per lpf Urine Yeast Test Not Performed Ur Culture Indicated? YES A (NO) - Radiology Data Radiology results reviewed: Yes I reviewed the patient's radiology results. Chest X-Ray 02/19/19 03:30 IMPRESSION: No acute disease. D/ / Dinesh Gomez MD / Dinesh Gomez MD Interpreting Provider: Dinesh Gomez MD - EKG Data EKG #1 EKG attestation: Yes I reviewed and interpreted this EKG. EKG results narrative: EKG shows a normal sinus rhythm with ventricular rate is 75. No ST segment elevation or depression. No arrhythmia or ectopy. Normal EKG. No significant change from prior EKG dated 11/21/2016. Attestation Statement - Attestation Attestation: I, Yevgeniy Asif MD, personally evaluated this patient and discussed their management with the midlevel provicer, PAC/[employer] OUT SPECIALIST. I reviewed the midlevel provider's note and agree with the documented findings, medical decision making, and plan of care. 78-year-old male presented to the emergency department with a complaint of increasing generalized weakness over the past 2-3 days. Some chills and subjective fever. Trouble ambulating due to the weakness. He lives at home. On examination patient is a well-developed well-nourished elderly male in no acute distress. He is alert and oriented 3. There is no cyanosis or diaphoresis. Breath sounds are clear and equal bilaterally. Heart regular rate and rhythm. Abdomen is soft and nontender with normal bowel sounds. EKG shows a normal sinus rhythm with ventricular rate is 75. No ST segment elevation or depression. No arrhythmia or ectopy. Normal EKG. No significant change from prior EKG dated 11/21/2016. Chest x-ray negative. Labs reviewed. The hospitalist, Dr. Walker, was consulted and accepted admission of the patient.
[2019-02-19] MEDS ORDERED: Ondansetron 4 MG/2 ML VIAL IVP PRN (07:12)
[2019-02-19] MEDS ORDERED: Naloxone 0.4 MG/ML INJ IVP PRN (07:12)
[2019-02-19] MEDS ORDERED: Megestrol Acetate 400 MG/10 ML UDC PO PRN (07:12)
[2019-02-19] MEDS: Ringers Solution, Lactated 1,000 ML IVC SCH ×2 (08:14→18:24)
[2019-02-19] MEDS: Aspirin Enteric Coated 81 MG Tablet PO SCH (08:15)
[2019-02-19] MEDS ORDERED: *HR* Labetalol 20 MG/4 ML SYRINGE IVP PRN (12:54)
--- NOTE | 2019-02-19 12:58 | Internal Med History&Physical ---
Date of Encounter: 02/19/19 Time of Encounter: 07:00 Internal Medicine - H&P: HPI Chief complaint: generalized weakness, urinary frequency Admitted From: Home History of present illness: Mr. Castillo is a 78 year old male with history of hypertension, CKD stage III, CVA, presented to the ED with 3 day history of generalized weakness. Associated with nausea but no vomiting. He was initially unsure about whether he had any urinary symptoms but when asked specifically about them, he endorsed urinary frequency and dribbling. No chest pain, shortness of breath, palpitation, cough, sputum production, abdominal pain, flank pain, or change in bowel habits. No headache, blurring of vision, diplopia, or focal weakness/numbness. He states that he felt "warm to couh" but not sure about any fever. Denies any chills. No recent sick contacts. No joint pain or rash. In the ED, he was afebrile and hemodynamically stable. Labwork was significant for Cr 2.00 (baseline 1.7) and urinalysis positive for nitrite and leukocyte esterase. Chest x-ray was negative for acute cardiopulmonary process. Patient was given IV fluids, started on IV Rocephin, and admitted for further management. Past Med Surg Social Fam HX - Past Medical History Medical history: cancer, CVA, GERD, hypertension, kidney stones, renal disease (ckd3) Psychiatric history: no psych history - Past Surgical History Surgical History: other (Eye surgery) - Social History Smoking Status: Light tobacco smoker Smokeless Tobacco Status: No Alcohol use: none Drug use: none - Family History Father Family Member Ethnicity: Non- Living Status: Hx Family Endocrine Disorder: Yes (DM) Mother Family Member Ethnicity: Non- Living Status: Hx Family Cardiac Disorders: No Brother Family Member Ethnicity: Non- Living Status: Hx Family GI Disorders: Yes (Unknown) Sister Family Member Ethnicity: Non- Living Status: Hx Family Cancer: Yes (Unknown) Internal Medicine - H&P: Meds Aspirin [Adult Low Dose Aspirin EC] 81 mg PO DAILY 11/21/16 [History] Lactose-Reduced Food [Boost] 237 ml PO BID 11/21/16 [History] Megestrol Acetate [Megace] 40 mg PO DAILY #30 tablet 11/22/16 [Rx] amLODIPine [Norvasc] 5 mg PO DAILY #30 tablet 11/22/16 [Rx] Megestrol Acetate [Megace] 10 ml PO DAILY PRN 02/19/19 [History] Allergy/AdvReac Type Severity Reaction Status Date / Time Iodinated Contrast- Oral and AdvReac Hallucinati Verified 11/30/17 14:58 IV Dye ng All Systems PM: A 10-system review of systems was performed and is negative for pertinent findings except as documented above in the HPI. - Constitutional Vitals: Temp Pulse Resp BP Pulse Ox 97.6 F 73 16 199/81 98 02/19/19 11:09 02/19/19 11:09 02/19/19 11:09 02/19/19 11:09 02/19/19 11:09 Exam: General: Alert and oriented, not in acute distress. HEENT:EOMI, pupils equal, round and reactive. Cardiovascular:Normal S1 & S2, No JVD. Pulse regular. Lungs: clear to auscultation, no wheezes/rales Abdomen:Soft, non-tender, no rigidity. : No significant suprapubic or CVA tenderness Extremities:No deformity or swelling Neurological:CN II-XII intact, power and sensation fully intact in all 4 limbs. No cerebellar signs, pronator drift -ve, Babinski downgoing bilaterally Skin:Normal color, no rash, no lesions. Pulses:Carotid and radial pulses normal +2. Rest of the physical exam is non contributory Internal Med - H&P Results - Labs CBC & Chem 7: 02/19/19 03:55 02/19/19 03:55 Labs: Short CBC 02/19/19 Range/Units 03:55 WBC 10.2 (4.3-11.1) K/mcL Hgb 14.2 (12.9-16.9) g/dL Hct 41.2 (37.5-50.1) % Plt Count 226 (140-400) K/mcL Neutrophils # 5.2 (1.6-8.9) K/mcL BMP 02/19/19 03:55 Sodium 132 L Potassium 3.7 Chloride 95 L Carbon Dioxide 21 L BUN 28 H Creatinine 2.00 H Glucose 63 L Calcium 10.2 Cardiac Enzymes 02/19/19 Range/Units 03:55 Troponin I < 0.03 (< 0.04) ng/mL Liver Function 02/19/19 Range/Units 03:55 Total Bilirubin 0.7 (0.3-1.0) mg/dL AST 31 (13-39) Units/L ALT 19 (7-52) Units/L Alkaline Phosphatase 66 (34-104) Units/L Albumin 4.7 (3.5-5.7) g/dL Urine 02/19/19 Range/Units 04:35 Urine Color Dark Yellow (Yellow) Urine Clarity Clear (Clear) Urine pH 5.0 (5.0-8.0) pH Units Ur Specific [place] 1.024 (1.010-1.025) Urine Protein 30 H (Neg-Trace) mg/dL Urine Glucose (UA) Normal (Normal) mg/dL - Impressions ITS Impressions Chest X-Ray 02/19/19 03:30 IMPRESSION: No acute disease. D/ / Dinesh Gomez MD / Dinesh Gomez MD Interpreting Provider: Dinesh Gomez MD - Assessment and Plan (1) UTI (urinary tract infection) Current Visit: Yes Status: Acute Assessment and plan: presented with generalized weakness, urinary frequency, and dribbling No leukocytosis or fever but patient does have urinalysis positive for nitrite and leukocyte esterase Started on IV Rocephin, continue Follow-up on urine culture Check bladder scan and start Flomax if pt has signiificant PVR Qualifiers: Urinary tract infection type: acute cystitis Hematuria presence: without hematuria Qualified Code(s): N30.00 - Acute cystitis without hematuria (2) Acute kidney injury superimposed on chronic kidney disease Current Visit: Yes Status: Acute Assessment and plan: associated with acute cystitis as above IVF check bladder scan to rule out obstructive uropathy monitor Cr, avoid nephrotoxins (3) CVA, old, aphasia Current Visit: No Status: Chronic Assessment and plan: Continue aspirin (4) Hypertension Current Visit: No Status: Chronic Assessment and plan: Resume home meds once reconciled When necessary labetalol Qualifiers: Hypertension type: essential hypertension Qualified Code(s): I10 - Essential (primary) hypertension (5) DVT prophylaxis Current Visit: Yes Status: Acute Assessment and plan: Subcutaneous heparin - Time Spent With Patient Total time spent is greater than 50% in coordination of care (as documented) at patient's floor/unit and/or counseling patient: 25 - 35 minutes
[2019-02-19] MEDS: *HR* Heparin 5,000 UNIT/ML VIAL SQ SCH (18:24)
[2019-02-19] MEDS ORDERED: *HR* Promethazine 25 MG/ML VIAL IVP ONE (21:01)
[2019-02-19] MEDS ORDERED: Haloperidol Lactate 5 MG/ML VIAL IVP ONE (21:01)
[2019-02-20] MEDS: *HR* Heparin 5,000 UNIT/ML VIAL SQ SCH ×2 (06:07→17:23)
[2019-02-20 07:39] LABS: Basophils # 0.1 K/mcL (0.0-0.2); Eosinophils # 0.8 K/mcL (0.0-0.6); Eosinophils % 8.3 %; Hematocrit 41.6 % (37.5-50.1); Hemoglobin 14.4 g/dL (12.9-16.9); Immature Granulocytes % 0.3 % (0-4); Lymphocytes # 2.3 K/mcL (0.6-4.6); Lymphocytes % 22.9 %; Mean Corpuscular HGB Conc 34.6 g/dL (31.6-35.5); Mean Corpuscular Hemoglobin 30.9 pg (28.0-33.3); Mean Corpuscular Volume 89.3 fL (83.0-100.0); Mean Platelet Volume 12.3 fL (9.4-12.4); Monocytes # 1.1 K/mcL (0.0-1.3); Monocytes % 11.4 %; Neutrophils # 5.5 K/mcL (1.6-8.9); Platelet Count 211 K/mcL (140-400); Red Blood Count 4.66 M/mcL (4.19-5.50); Red Cell Distribution Width 12.8 % (11.5-14.5); Segmented Neutrophils % 56.1 %; White Blood Count 9.9 K/mcL (4.3-11.1)
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
[2019-02-20 07:54] LABS: BUN/Creatinine Ratio 13 (6-26); Blood Urea Nitrogen 17 mg/dL (8-23); Calcium 9.8 mg/dL (8.6-10.3); Carbon Dioxide 23 mEq/L (23-29); Chloride 95 mEq/L (98-107); Glucose 62 mg/dL (70-105); Magnesium 1.8 mg/dL (1.6-2.6); Osmolality,Calculated 270 (280-300); Potassium 3.4 mEq/L (3.5-5.1); Sodium 130 mEq/L (136-145); eGFR For African Americans > 60 (> 60); eGFR For Non-African Americans 55 (> 60)
[2019-02-20] MEDS: Aspirin Enteric Coated 81 MG Tablet PO SCH (08:33)
[2019-02-20] MEDS: cefTRIAXone 1,000 MG in Water for inj. (sterile) 10 ML IVP SCH (08:34)
--- NOTE | 2019-02-20 10:38 | Internal Med Progress Note ---
Hospitalist Progress Note - Encounter Date of Encounter: 02/20/19 Time of Encounter: 08:00 - Subjective Interval History: Overnight events noted. Patient became agitated and demonstrated aggressive behavior toward staff members and hence was placed on 4 point soft restraints. Pt remains alert and is tangential in his question. NO hallucinations but not oriented. No obvious tremors noted. - Exam Vitals: Temp Pulse Resp BP Pulse Ox 98.2 F 80 16 193/94 98 02/20/19 08:52 02/20/19 08:52 02/20/19 08:52 02/20/19 08:52 02/20/19 08:52 Exam: General: Alert, oriented to self but not to time and place. Agitated Cardiovascular:Normal S1 & S2, No JVD. Pulse regular. Lungs: clear to auscultation, no wheezes/rales Abdomen:Soft, non-tender, no rigidity. : No significant suprapubic or CVA tenderness Extremities:No deformity or swelling Neurological: does not follow commands reliably for full neuro exam but moving all 4 limbs spontaneously without difficulty. No facial droop seen, no obvious tremor of the UEs noted - Assessment and Plan (1) Encephalopathy Current Visit: Yes Status: Acute Assessment and Plan: In the setting of improving acute on chronic kidney failure and UTI that is being treated adequately LFT done yesterday was also unremarkable does have hypoglycemia of 62, will place on D5 gtt today highly suspect underlying dementia but will rule out other possible causes CT head, B12/folate/TSH. Will also check for ammonia attempted to call pt's regarding the history of alcohol abuse but the phone number listed is reported to be disconnected. in view of elevated BP and AMS, will try a dose of ativan to see if there is a component of alcohol withdrawal. If effective, will consider placing on CIWA protocol (2) UTI (urinary tract infection) Current Visit: Yes Status: Acute Assessment and Plan: presented with generalized weakness, urinary frequency, and dribbling No leukocytosis or fever but patient does have urinalysis positive for nitrite and leukocyte esterase continue IV Rocephin, Follow-up on urine culture (3) Acute kidney injury superimposed on chronic kidney disease Current Visit: Yes Status: Acute Assessment and Plan: associated with acute cystitis as above improving on IVF, continue bladder scan pending monitor Cr, avoid nephrotoxins (4) CVA, old, aphasia Current Visit: No Status: Chronic Assessment and Plan: Continue aspirin (5) Hypertension Current Visit: No Status: Chronic Assessment and Plan: Resume home meds once reconciled When necessary labetalol (6) DVT prophylaxis Current Visit: Yes Status: Acute Assessment and Plan: Subcutaneous heparin - Time Spent with Patient Total time spent is greater than 50% in coordination of care (as documented) at patient's floor/unit and/or counseling patient: 25 - 35 minutes Plan of Care Discussed with: nurse Internal Medicine: Result - Labs CBC & Chem 7: 02/20/19 06:45 02/20/19 06:45 Labs: Short CBC 02/20/19 Range/Units 06:45 WBC 9.9 (4.3-11.1) K/mcL Hgb 14.4 (12.9-16.9) g/dL Hct 41.6 (37.5-50.1) % Plt Count 211 (140-400) K/mcL Neutrophils # 5.5 (1.6-8.9) K/mcL BMP 02/20/19 06:45 Sodium 130 L Potassium 3.4 L Chloride 95 L Carbon Dioxide 23 BUN 17 Creatinine 1.27 Glucose 62 L Calcium 9.8 - ABG Interpretation ABG results: PT/INR, D-dimer PT 12.0 Seconds (9.4-12.1) 02/19/19 03:55 Consult Discharge Plan - Plan Referrals: NONE,PCP [Primary Care Provider] - ____ (2) UTI (urinary tract infection) Qualifiers: Urinary tract infection type: acute cystitis Hematuria presence: without hematuria Qualified Code(s): N30.00 - Acute cystitis without hematuria (5) Hypertension Qualifiers: Hypertension type: essential hypertension Qualified Code(s): I10 - Essential (primary) hypertension
[2019-02-20 10:52] LABS: Thyroid Stimulating Hormone 1.357 mcIU/mL (0.340-5.600)
[2019-02-20] MEDS ORDERED: *HR* LORazepam 2 MG/ML VIAL IVP STA (11:04)
[2019-02-20] MEDS: D5% in 0.45% NACL w KCl 20 MEQ/1,000 ML MLS IVC SCH (11:28)
[2019-02-20 11:57] LABS: Folate > 22.3 ng/mL (3.0-16.0); Vitamin B12 > 1500 pg/mL (250-1100)
[2019-02-21] MEDS: D5% in 0.45% NACL w KCl 20 MEQ/1,000 ML MLS IVC SCH ×2 (00:19→13:01)
[2019-02-21] MEDS: *HR* Heparin 5,000 UNIT/ML VIAL SQ SCH ×2 (06:11→16:27)
[2019-02-21 06:38] LABS: Basophils # 0.1 K/mcL (0.0-0.2); Basophils % 1.1 %; Eosinophils # 1.1 K/mcL (0.0-0.6); Eosinophils % 13.3 %; Hematocrit 41.5 % (37.5-50.1); Hemoglobin 14.2 g/dL (12.9-16.9); Immature Granulocytes % 0.1 % (0-4); Lymphocytes # 2.1 K/mcL (0.6-4.6); Lymphocytes % 25.5 %; Mean Corpuscular HGB Conc 34.2 g/dL (31.6-35.5); Mean Corpuscular Volume 87.6 fL (83.0-100.0); Monocytes # 0.8 K/mcL (0.0-1.3); Monocytes % 10.3 %; Neutrophils # 4.1 K/mcL (1.6-8.9); Platelet Count 232 K/mcL (140-400); Red Blood Count 4.74 M/mcL (4.19-5.50); Red Cell Distribution Width 12.9 % (11.5-14.5); Segmented Neutrophils % 49.7 %; White Blood Count 8.2 K/mcL (4.3-11.1)
[2019-02-21 06:58] LABS: Alanine Aminotransferase 21 Units/L (7-52); Albumin 4.1 g/dL (3.5-5.7); Albumin/Globulin Ratio 1.6 (1.1-2.2); Alkaline Phosphatase 61 Units/L (34-104); Aspartate Amino Transferase 52 Units/L (13-39); BUN/Creatinine Ratio 10 (6-26); Bilirubin,Total 0.6 mg/dL (0.3-1.0); Blood Urea Nitrogen 13 mg/dL (8-23); Calcium 9.4 mg/dL (8.6-10.3); Carbon Dioxide 21 mEq/L (23-29); Chloride 96 mEq/L (98-107); Globulin 2.6 g/dL (2.4-3.5); Glucose 102 mg/dL (70-105); Magnesium 1.8 mg/dL (1.6-2.6); Osmolality,Calculated 272 (280-300); Potassium 4.1 mEq/L (3.5-5.1); Sodium 131 mEq/L (136-145); Total Protein 6.7 g/dL (6.4-8.9); eGFR For African Americans > 60 (> 60); eGFR For Non-African Americans 54 (> 60)
[2019-02-21] MEDS: Aspirin Enteric Coated 81 MG Tablet PO SCH (08:12)
[2019-02-21] MEDS: cefTRIAXone 1,000 MG in Water for inj. (sterile) 10 ML IVP SCH (08:13)
[2019-02-21] MEDS: amLODIPine 5 MG TABLET PO SCH (08:13)
--- NOTE | 2019-02-21 11:43 | Internal Med Progress Note ---
Hospitalist Progress Note - Encounter Date of Encounter: 02/21/19 Time of Encounter: 10:00 - Subjective Interval History: Patient is more calm today but still unable to tell me where he is or why he is in the hospital. 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 Denies any headache, blurring of vision, chest pain, or focal weakness/numbness. - Exam Vitals: Temp Pulse Resp BP Pulse Ox 98.5 F 84 16 178/83 96 02/21/19 03:45 02/21/19 03:45 02/21/19 03:45 02/21/19 03:45 02/21/19 03:45 Exam: General: Alert, oriented to self but not to time and place. Calm and cooperative today Cardiovascular:Normal S1 & S2, No JVD. Pulse regular. Lungs: clear to auscultation, no wheezes/rales Abdomen:Soft, non-tender, no rigidity. : No significant suprapubic or CVA tenderness Extremities:No deformity or swelling Neurological: CN II-XII intact, power and sensation fully intact in all 4 limbs. No cerebellar signs, pronator drift -ve, Babinski downgoing bilaterally - Assessment and Plan (1) Encephalopathy Current Visit: Yes Status: Acute Assessment and Plan: In the setting of improving acute on chronic kidney failure and UTI that is being treated adequately LFT unremarkable x 2 hypoglycemia improved on IVF with D5 CT head -ve, B12/folate unremarkable, TSH normal, ammonia WNL highly suspect underlying dementia in view of elevated BP and AMS yesterday, he was given a dose of ativan which calmed him down but continues to have elevated BP. ?PRES will obtain MRI head would consider psych eval for capacity if MR is unremarkable (2) UTI (urinary tract infection) Current Visit: Yes Status: Acute Assessment and Plan: presented with generalized weakness, urinary frequency, and dribbling No leukocytosis or fever but patient does have urinalysis positive for nitrite and leukocyte esterase continue IV Rocephin D3, aim 7 day treatment PVR 447, diamond inserted and started on flomax outpatient Urology follow up (3) Acute kidney injury superimposed on chronic kidney disease Current Visit: Yes Status: Acute Assessment and Plan: associated with acute cystitis as above improving on IVF, will continue for now until PO intake improves monitor Cr, avoid nephrotoxins (4) CVA, old, aphasia Current Visit: No Status: Chronic Assessment and Plan: Continue aspirin (5) Hypertension Current Visit: No Status: Chronic Assessment and Plan: started on norvasc and coreg continue PRN labetalol (6) DVT prophylaxis Current Visit: Yes Status: Acute Assessment and Plan: Subcutaneous heparin - Time Spent with Patient Total time spent is greater than 50% in coordination of care (as documented) at patient's floor/unit and/or counseling patient: 25 - 35 minutes Plan of Care Discussed with: nurse Internal Medicine: Result - Labs CBC & Chem 7: 02/21/19 06:07 02/21/19 06:07 Labs: Short CBC 02/21/19 Range/Units 06:07 WBC 8.2 (4.3-11.1) K/mcL Hgb 14.2 (12.9-16.9) g/dL Hct 41.5 (37.5-50.1) % Plt Count 232 (140-400) K/mcL Neutrophils # 4.1 (1.6-8.9) K/mcL BMP 02/21/19 06:07 Sodium 131 L Potassium 4.1 Chloride 96 L Carbon Dioxide 21 L BUN 13 Creatinine 1.28 Glucose 102 Calcium 9.4 Liver Function 02/21/19 Range/Units 06:07 Total Bilirubin 0.6 (0.3-1.0) mg/dL AST 52 H (13-39) Units/L ALT 21 (7-52) Units/L Alkaline Phosphatase 61 (34-104) Units/L Albumin 4.1 (3.5-5.7) g/dL - ABG Interpretation ABG results: PT/INR, D-dimer PT 12.0 Seconds (9.4-12.1) 02/19/19 03:55 - Impressions Impressions Head CT 02/20/19 10:07 IMPRESSION: No acute intracranial abnormality. Stable mild generalized cerebral atrophy and chronic small vessel white matter ischemic changes. D/ / Sidney Olguin MD / Sidney Olguin MD Interpreting Provider: Sidney Olguin MD Consult Discharge Plan - Plan Referrals: NONE,PCP [Primary Care Provider] - (2) UTI (urinary tract infection) Qualifiers: Urinary tract infection type: acute cystitis Hematuria presence: without hematuria Qualified Code(s): N30.00 - Acute cystitis without hematuria (5) Hypertension Qualifiers: Hypertension type: essential hypertension Qualified Code(s): I10 - Essential (primary) hypertension
[2019-02-22] MEDS: D5% in 0.45% NACL w KCl 20 MEQ/1,000 ML MLS IVC SCH (03:48)
[2019-02-22 05:22] LABS: BUN/Creatinine Ratio 10 (6-26); Blood Urea Nitrogen 13 mg/dL (8-23); Carbon Dioxide 19 mEq/L (23-29); Chloride 99 mEq/L (98-107); Glucose 99 mg/dL (70-105); Osmolality,Calculated 264 (280-300); Potassium 4.3 mEq/L (3.5-5.1); Sodium 127 mEq/L (136-145); eGFR For African Americans > 60 (> 60); eGFR For Non-African Americans 51 (> 60)
[2019-02-22 05:33] LABS: Hematocrit 38.5 % (37.5-50.1); Hemoglobin 13.1 g/dL (12.9-16.9); Mean Corpuscular Volume 91.2 fL (83.0-100.0); Platelet Count 208 K/mcL (140-400); Red Blood Count 4.22 M/mcL (4.19-5.50); Red Cell Distribution Width 12.8 % (11.5-14.5); White Blood Count 8.8 K/mcL (4.3-11.1)
[2019-02-22] MEDS: *HR* Heparin 5,000 UNIT/ML VIAL SQ SCH ×2 (05:49→16:07)
[2019-02-22] MEDS: cefTRIAXone 1,000 MG in Water for inj. (sterile) 10 ML IVP SCH (07:18)
[2019-02-22] MEDS: amLODIPine 5 MG TABLET PO SCH (07:19)
[2019-02-22] MEDS: Aspirin Enteric Coated 81 MG Tablet PO SCH (07:19)
[2019-02-22] MEDS ORDERED: Acetaminophen 325 MG TABLET PO PRN (07:40)
[2019-02-22] MEDS: D5% in 0.9% NACL 1,000 ML IVC SCH (08:36)
--- NOTE | 2019-02-22 11:00 | Internal Med Progress Note ---
Hospitalist Progress Note - Encounter Date of Encounter: 02/22/19 Time of Encounter: 09:15 - Subjective Interval History: No acute events overnight. Appears to be much less agitated and comfortable this morning. Denies any abdominal pain, flank pain, nausea/vomiting, or fever/chills. - Exam Vitals: Temp Pulse Resp BP Pulse Ox 97.7 F 64 16 113/75 99 02/22/19 10:53 02/22/19 10:53 02/22/19 10:53 02/22/19 10:53 02/22/19 10:53 Exam: General: Alert, oriented to self but not to time and place. Calm and cooperative Cardiovascular:Normal S1 & S2, No JVD. Pulse regular. Lungs: clear to auscultation, no wheezes/rales Abdomen:Soft, non-tender, no rigidity. : No significant suprapubic or CVA tenderness Extremities:No deformity or swelling Neurological: non-focal - Assessment and Plan (1) Encephalopathy Current Visit: Yes Status: Acute Assessment and Plan: In the setting of improving acute on chronic kidney failure and UTI that is being treated adequately LFT unremarkable x 2 pt has very poor oral intake requiring IVF with D5 CT head -ve, B12/folate unremarkable, TSH normal, ammonia WNL suspect underlying dementia with failure to thrive MRI report pending PT/OT recommended for SNF placement, working with SW (2) UTI (urinary tract infection) Current Visit: Yes Status: Acute Assessment and Plan: presented with generalized weakness, urinary frequency, and dribbling No leukocytosis or fever but patient does have urinalysis positive for nitrite a nd leukocyte esterase. Urine culture -ve however continue IV Rocephin D4, aim 7 day treatment PVR 447ml, diamond inserted and started on flomax outpatient Urology follow up (3) Acute kidney injury superimposed on chronic kidney disease Current Visit: Yes Status: Resolved Assessment and Plan: associated with acute cystitis as above improved with IVF, Cr at baseline but has extremely poor PO intake. 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 Assessment and Plan: Continue aspirin (5) Hypertension Current Visit: No Status: Chronic Assessment and Plan: better controlled on norvasc and coreg continue PRN labetalol (6) DVT prophylaxis Current Visit: Yes Status: Acute Assessment and Plan: Subcutaneous heparin - Time Spent with Patient Total time spent is greater than 50% in coordination of care (as documented) at patient's floor/unit and/or counseling patient: 25 - 35 minutes Plan of Care Discussed with: case management Internal Medicine: Result - Labs CBC & Chem 7: 02/22/19 04:29 02/22/19 04:29 Labs: Short CBC 02/22/19 Range/Units 04:29 WBC 8.8 (4.3-11.1) K/mcL Hgb 13.1 (12.9-16.9) g/dL Hct 38.5 (37.5-50.1) % Plt Count 208 (140-400) K/mcL BMP 02/22/19 04:29 Sodium 127 L Potassium 4.3 Chloride 99 Carbon Dioxide 19 L BUN 13 Creatinine 1.34 H Glucose 99 Calcium 9.0 - ABG Interpretation ABG results: PT/INR, D-dimer PT 12.0 Seconds (9.4-12.1) 02/19/19 03:55 - Impressions Impressions KUB X-Ray 02/21/19 12:01 IMPRESSION: No acute findings. D/ / Lulú Schmitt MD / Lulú Schmitt MD Interpreting Provider: Lulú Schmitt MD Consult Discharge Plan - Plan Referrals: NONE,PCP [Primary Care Provider] - (2) UTI (urinary tract infection) Qualifiers: Urinary tract infection type: acute cystitis Hematuria presence: without hematuria Qualified Code(s): N30.00 - Acute cystitis without hematuria (5) Hypertension Qualifiers: Hypertension type: essential hypertension Qualified Code(s): I10 - Essential (primary) hypertension
--- NOTE | 2019-02-22 15:15 | Neurology - Consult Note ---
Date of Encounter: 02/22/19 Time of Encounter: 14:00 Assessment and Plan (1) Encephalopathy Current Visit: Yes Status: Acute (2) Stroke Current Visit: Yes Status: Acute MRI showing punctate infarct in high right parietoocippital lobe. Will switch aspirin to Plavix 75mg given history of remote infarct as well as newly diagnosed infarct. Patients altered mental status most likely due to encephalopathy due to kidney disease. Carotid duplex and echocardiogram ordered. Will continue to follow. Thank you for the consult. Case discussed with Dr. Garcia, attending Neurologist. Qualifiers: CVA mechanism: occlusion Precerebral and cerebral artery: unspecified cerebral artery Qualified Code(s): I63.50 - Cerebral infarction due to unspecified occlusion or stenosis of unspecified cerebral artery History of Present Illness Chief complaint: "I'm feeling alright" HPI: Mr. Castillo is a 78 year old male with past medical history of HTN, CKD Stage 3, and CVA who was admitted from ER with generalized weakness and acute on chronic kidney disease. MRI showed punctate infarct in high right parietoocipital lobe. On interview today patient is markedly confused. He is oriented to person only not place, time or purpose. He attempts to rise from his chair several times forgetting about his diamond catheter and chair alarm. Nursing staff reports intermittent confusion throughout his stay consistent with delirium. He is currently on Aspirin and Statin therapy. Echo and Doppler have been ordered with results pending. Attempted to obtain more HPI from patient but was unable too at this time due to patient confusion. There was no family or ca regiver at bedside at time. Past Med Surg Social Fam HX - Past Medical History Medical history: cancer, CVA, GERD, hypertension, kidney stones, renal disease (ckd3) Psychiatric history: no psych history - Past Surgical History Surgical History: other (Eye surgery) - Social History Smoking Status: Light tobacco smoker Smokeless Tobacco Status: No Alcohol use: none Drug use: none - Family History Father Family Member Ethnicity: Non- Living Status: Hx Family Endocrine Disorder: Yes (DM) Mother Family Member Ethnicity: Non- Living Status: Hx Family Cardiac Disorders: No Brother Family Member Ethnicity: Non- Living Status: Hx Family GI Disorders: Yes (Unknown) Sister Family Member Ethnicity: Non- Living Status: Hx Family Cancer: Yes (Unknown) Medications and Allergies Aspirin Enteric Coated [Aspirin EC] 81 mg PO DAILY 02/21/19 [History] Allergy/AdvReac Type Severity Reaction Status Date / Time Iodinated Contrast- Oral and AdvReac Hallucinati Verified 02/21/19 09:44 IV Dye ng ROS unobtainable: due to mental status (Patient too disoriented/confused at time of interview to convey accurate history. ) All Systems: The remainder of the systems were reviewed and are negative Physical Examination - Vital Signs Vital Signs: Initial Vital Signs Temp Pulse Resp BP Pulse Ox 98 F 82 18 161/90 99 02/19/19 03:33 02/19/19 03:33 02/19/19 03:33 02/19/19 03:33 02/19/19 03:33 - Constitutional General appearance: comfortable - Neurologic Sensorimotor examination: intact Detailed motor examination: full strength in all major muscle groups Motor examination - right side: 5/5: deltoids, biceps, triceps, wrist flexion, wrist extension, special investigator, hip flexors, tibialis Anterior, quadriceps, toe extension (EHL), plantarflexion Motor examination - left side: 5/5: deltoids, biceps, triceps, wrist flexion, wrist extension, hip flexors, special investigator, quadriceps, tibialis Anterior, toe extension (EHL), plantarflexion Detailed sensory examination: intact Posture: other (None) Reflex and gait examination: normal gait (Gait not assessed) Reflexes: Biceps: 1+, Triceps: 1+, Brachioradialis: 1+, Patella: 1+, Achilles: 1+ Mental Status Examination: awake, alert, oriented to person, follows commands appropriately (followed most commands appropriately, easily distracted and lost attention quickly), no agnosia, no aphasia, no aproxia, delerious (with waxing and waning cognition), makes eye contact, follows simple commands, demented, i mpaired memory, impaired cognition Mental Status Examination: Patient seated comfortably in chair. Pleasant to interview. Cranial nerve examination: PERRL, EOMI, corneal reflexes brisk symmetrically, sensory to face intact, no facial asymmetry is present, no dysarthria, hearing is intact symmetrically, soft palate elevates bilaterally upon phonation, tongue protrudes midline, no atrophy or facial fasiculations present Cerebellar examination: performs finger to nose and heel to watt symmetrically without ataxia (unable to perform ), no difficulty with rapid alternating movements Results - Laboratory Findings CBC and BMP: 02/22/19 04:29 02/22/19 04:29 Abnormal lab findings: Abnormal lab results Eosinophils # 1.1 K/mcL (0.0-0.6) H 02/21/19 06:07 Sodium 127 mEq/L (136-145) L 02/22/19 04:29 Potassium 3.4 mEq/L (3.5-5.1) L 02/20/19 06:45 Chloride 96 mEq/L (98-107) L 02/21/19 06:07 Carbon Dioxide 19 mEq/L (23-29) L 02/22/19 04:29 BUN 28 mg/dL (8-23) H 02/19/19 03:55 Creatinine 1.34 mg/dL (0.70-1.30) H 02/22/19 04:29 Est GFR ( Amer) 39 (> 60) L 02/19/19 03:55 Est GFR (Non-Af Amer) 51 (> 60) L 02/22/19 04:29 Glucose 62 mg/dL (70-105) L 02/20/19 06:45 POC Glucose 117 mg/dL (70-99) H 02/21/19 19:22 Calculated Osmolality 264 (280-300) L 02/22/19 04:29 AST 52 Units/L (13-39) H 02/21/19 06:07 Vitamin B12 > 1500 pg/mL (250-1100) H 02/20/19 10:54 Folate > 22.3 ng/mL (3.0-16.0) H 02/20/19 10:54 Urine Protein 30 mg/dL (Neg-Trace) H 02/19/19 04:35 Urine Ketones 15 mg/dL (Negative) H 02/19/19 04:35 Urine Nitrite Positive (Negative) A 02/19/19 04:35 Urine Bilirubin Small (Negative) H 02/19/19 04:35 Ur Leukocyte Esterase Trace (Negative) H 02/19/19 04:35 Ur Squamous Epith Cells Many per lpf (None-Few) H 02/19/19 04:35 Urine Bacteria Many per hpf (None-Few) H 02/19/19 04:35 Ur Culture Indicated? YES (NO) A 02/19/19 04:35 Consult Discharge Plan - Plan Referrals: NONE,PCP [Primary Care Provider] -
[2019-02-22] MEDS ORDERED: Haloperidol Lactate 5 MG/ML VIAL IM ONE (15:21)
[2019-02-22] MEDS ORDERED: *HR* LORazepam 2 MG/ML VIAL IVP ONE (16:32)
[2019-02-22] MEDS ORDERED: Perflutren Lipid Microsphere 1.3 ML in 0.9 % Sodium Chloride 8.7 ML IVP ONE (19:27)
[2019-02-23] MEDS: D5% in 0.9% NACL 1,000 ML IVC SCH (02:44)
[2019-02-23] MEDS: *HR* Heparin 5,000 UNIT/ML VIAL SQ SCH ×2 (05:15→19:09)
[2019-02-23 05:18] LABS: BUN/Creatinine Ratio 9 (6-26); Blood Urea Nitrogen 12 mg/dL (8-23); Calcium 9.3 mg/dL (8.6-10.3); Carbon Dioxide 23 mEq/L (23-29); Chloride 93 mEq/L (98-107); Glucose 88 mg/dL (70-105); Osmolality,Calculated 259 (280-300); Potassium 3.9 mEq/L (3.5-5.1); Sodium 125 mEq/L (136-145); eGFR For African Americans > 60 (> 60); eGFR For Non-African Americans 52 (> 60)
--- NOTE | 2019-02-23 07:33 | Internal Med Progress Note ---
Hospitalist Progress Note - Encounter Date of Encounter: 02/23/19 Time of Encounter: 07:33 - Subjective Interval History: Patient seen and examined this morning it was up. No acute overnight events. Patient on and off confused. Not able to offer any complaint. Denying any pain or weakness. Denies any difficulty breathing. - Exam Vitals: Temp Pulse Resp BP Pulse Ox 98.6 F 76 14 174/74 93 02/23/19 03:40 02/23/19 03:40 02/23/19 03:40 02/23/19 03:40 02/23/19 03:40 Exam: General: In no acute distress. Respiratory exam: CTAB. no accessory muscle use, rales, rhonchi, wheezes Cardiovascular exam: RRR, +S1, +S2. no murmur, gallop, rubs. GI/Abdominal exam: Non-tender, Non-distended, normal bowel sounds, soft, no peritoneal signs. Extremities exam: no pedal edema, pulses palpable in b/l lower extremities. no calf tenderness Neurological exam: CN II-XII intact, AO X1, no focal deficits. 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 Chronic HTN h/o CVA Plan - Encephalopathy, possbily related to UTI and/or CVA and possibly underlying dementia. CT head -ve, B12/folate unremarkable, TSH normal, ammonia WNL. MRI wih punctate infarct. f/u ECHO. Carotid with lt 40-59% on left. likely does not need intervention. Neurology following. aspirin changed to plavix. - DC hypotonic fluid given hyponatremia.. Keep on 0.9 NS. - Urine culture negative. Has urinary retention. c/w diamond. Will need outpatient urology follow up. Stop antibiotics. - PT/OT recommended for SNF placement, working with SW. Placement pending. - norvasc and coreg held. - Subcutaneous heparin for dvt ppx. - Time Spent with Patient Total time spent is greater than 50% in coordination of care (as documented) at patient's floor/unit and/or counseling patient: Internal Medicine: Result - Labs CBC & Chem 7: 02/22/19 04:29 02/23/19 04:08 Labs: BMP 02/23/19 04:08 Sodium 125 L Potassium 3.9 Chloride 93 L Carbon Dioxide 23 BUN 12 Creatinine 1.33 H Glucose 88 Calcium 9.3 - ABG Interpretation ABG results: PT/INR, D-dimer PT 12.0 Seconds (9.4-12.1) 02/19/19 03:55 - Impressions Impressions Brain MRI 02/22/19 09:55 IMPRESSION: There is a punctate area of infarct in the high right parietoccipital lobe. No other areas of acute infarct are identified. Mild cerebral atrophy and chronic small vessel ischemic changes. D/ / 02/22/2019 11:02:38 [facility] Interpreting Provider: Adele Knutson MD Consult Discharge Plan - Plan Referrals: NONE,PCP [Primary Care Provider] - (2) Hypertension Qualifiers: Hypertension type: essential hypertension Qualified Code(s): I10 - Essential (primary) hypertension (4) UTI (urinary tract infection) Qualifiers: Urinary tract infection type: acute cystitis Hematuria presence: without hematuria Qualified Code(s): N30.00 - Acute cystitis without hematuria
[2019-02-23] MEDS ORDERED: 0.9 % Sodium Chloride 1,000 ML IVC SCH (09:00)
[2019-02-23] MEDS: Megestrol Acetate 400 MG/10 ML UDC PO SCH (10:08)
--- NOTE | 2019-02-23 10:43 | Neurology Progress Note ---
Date of Encounter: 02/23/19 Time of Encounter: 09:00 Assessment and Plan (1) Encephalopathy Current Visit: Yes Status: Acute (2) Stroke Current Visit: Yes Status: Acute Patient remains disoriented to place time and person. Awaiting results of Echo and Carotid duplex. Aspirin was discontinued and Plavix was starwillted for stroke prevention. Waxing and waning confusion as well as poor delayed recall indicates patient most likely displaying delirium due to encephalopathy with underlying dementia process likely present. Further recommendations per Dr. Garcia, attending Neurologist. Qualifiers: CVA mechanism: occlusion Precerebral and cerebral artery: unspecified cerebral artery Qualified Code(s): I63.50 - Cerebral infarction due to unspecified occlusion or stenosis of unspecified cerebral artery Subjective Principal diagnosis: Right Parietal Occipital Infarct Interval history: Mr. Castillo seen today at bedside. He remains oriented to person only not place, time or purpose. He denies numbness, tingling, weakness, nausea or vomitting today. Staff reports he continues to attempt to leave his bed and that he remains confused with only brief periods of lucidity. No caregiver present at time of interview. Objective - Constitutional Vitals: Temp Pulse Resp BP Pulse Ox 98.1 F 73 16 177/83 93 02/23/19 08:04 02/23/19 08:04 02/23/19 08:04 02/23/19 08:04 02/23/19 03:40 - Neurological Exam Additional comments: GENERAL: Comfortable in no acute distress HEENT: Normal LUNGS: CTA HEART: RRR, S1 S2 Audible, no murmur EXTREMITIES: No Pedal edema. DETAILED NEUROLOGICAL EXAMINATION: MENTAL STATUS: Oriented to person, but not place time or purpose. Memory: impaired as evidenced by inability to recall president, how he arrived here or how long he has been here Recent Memory Impaired, Attention span is normal Cranial Nerve Examination: CN - II: Visual Acuity, Field of Vision Normal, Fundus examination: No disk edema, Pupils- size shape reaction to light and accommodation: All normal. CN III, IV, : External ocular movements were intact, Pupils were reactive, Nodrooping of the eyelids CN V: Sensation over the face to light touch and pinprick all normal. Corneal reflexes not tested CN VII: No facial asymmetry, no flattening of nasolabial folds, no difficulty in closing the eyes, no loss of forehead wrinkles, no difficulty in eye-closure, frowning raising eyebrows. CNVIII: No significant hearing loss CN IX, X: Uvula centralized not deviated, Gag reflex: Not tested CN X1: Sternocleidomastoid, trapezius normal CN X11: Dysarthria present; no wasting or fibrillation of tongue muscles, no deviation, tongue muscle strength normal. Motor examination: No hypertrophy, tone was normal Upper limbs Proximal- No difficulty in lifting the arms above the head. Distal- No weakness in distal muscles On formal testing 5/5 all over Lower limbs On formal testing 5/5 all over Coordination: [id number] normal. Target pursuit normal finger tapping normal, Rapid alternating moment of wrist normal Sensory system: Superficial sensations- Touch normal. Pain- Pinprick, Temperature all normal, Deep sensation normal, Joint position sense normal. Deep tendon reflexes: Symmetrical bilateral, No sign of meningeal irritation Gait Examination: Deferred due to patients high fall risk and no staff present to assist at time of interview Results - Laboratory Findings CBC and BMP: 02/22/19 04:29 02/23/19 04:08 Abnormal lab findings: Abnormal lab results Eosinophils # 1.1 K/mcL (0.0-0.6) H 02/21/19 06:07 Sodium 125 mEq/L (136-145) L 02/23/19 04:08 Potassium 3.4 mEq/L (3.5-5.1) L 02/20/19 06:45 Chloride 93 mEq/L (98-107) L 02/23/19 04:08 Carbon Dioxide 19 mEq/L (23-29) L 02/22/19 04:29 BUN 28 mg/dL (8-23) H 02/19/19 03:55 Creatinine 1.33 mg/dL (0.70-1.30) H 02/23/19 04:08 Est GFR ( Amer) 39 (> 60) L 02/19/19 03:55 Est GFR (Non-Af Amer) 52 (> 60) L 02/23/19 04:08 Glucose 62 mg/dL (70-105) L 02/20/19 06:45 POC Glucose 125 mg/dL (70-99) H 02/22/19 11:13 Calculated Osmolality 259 (280-300) L 02/23/19 04:08 AST 52 Units/L (13-39) H 02/21/19 06:07 Vitamin B12 > 1500 pg/mL (250-1100) H 02/20/19 10:54 Folate > 22.3 ng/mL (3.0-16.0) H 02/20/19 10:54 Urine Protein 30 mg/dL (Neg-Trace) H 02/19/19 04:35 Urine Ketones 15 mg/dL (Negative) H 02/19/19 04:35 Urine Nitrite Positive (Negative) A 02/19/19 04:35 Urine Bilirubin Small (Negative) H 02/19/19 04:35 Ur Leukocyte Esterase Trace (Negative) H 02/19/19 04:35 Ur Squamous Epith Cells Many per lpf (None-Few) H 02/19/19 04:35 Urine Bacteria Many per hpf (None-Few) H 02/19/19 04:35 Ur Culture Indicated? YES (NO) A 02/19/19 04:35 Consult Discharge Plan - Plan Referrals: NONE,PCP [Primary Care Provider] -
[2019-02-23] MEDS: cefTRIAXone 1,000 MG in Water for inj. (sterile) 10 ML IVP SCH (20:11)
[2019-02-24 01:44] LABS: Calcium 9.2 mg/dL (8.6-10.3); Potassium 3.7 mEq/L (3.5-5.1)
[2019-02-24] MEDS: *HR* Heparin 5,000 UNIT/ML VIAL SQ SCH ×2 (05:09→17:21)
[2019-02-24 07:11] LABS: Bilirubin,Urine Negative (Negative); Blood,Urine Trace-intact (Negative); Clarity,Urine Clear (Clear); Color,Urine Yellow (Yellow); Glucose,Urine (UA) Normal (Normal); Ketones,Urine 15 mg/dL (Negative); Leukocyte Esterase,Urine Negative (Negative); Nitrite,Urine Negative (Negative); Protein,Urine Trace mg/dL (Neg-Trace); Urobilinogen,Urine Normal (Normal)
[2019-02-24 07:17] LABS: Bacteria,Urine Few per hpf (None-Few); RBC,Urine 0-3 per hpf (0-3); Squamous Epithelial Cell,Urine Few per lpf (None-Few); WBC,Urine 0-3 per hpf (0-3)
[2019-02-24] MEDS ORDERED: 0.9 % Sodium Chloride 1,000 ML IVC SCH ×2 (08:00→21:45)
--- NOTE | 2019-02-24 08:01 | Internal Med Progress Note ---
Hospitalist Progress Note - Encounter Date of Encounter: 02/24/19 Time of Encounter: 08:00 - Subjective Interval History: Patient seen and examined this morning at bedside. No acute overnight events. Slightly more alert and oriented than yesterday. Denies any abdominal pain. Not offering any complaints. - Exam Vitals: Temp Pulse Resp BP Pulse Ox 98.2 F 75 14 196/81 96 02/24/19 07:16 02/24/19 07:16 02/24/19 07:16 02/24/19 07:16 02/24/19 07:16 Exam: General: In no acute distress. Respiratory exam: CTAB. no accessory muscle use, rales, rhonchi, wheezes Cardiovascular exam: RRR, +S1, +S2. no murmur, gallop, rubs. GI/Abdominal exam: Non-tender, Non-distended, normal bowel sounds, soft, no peritoneal signs. diamond in place. Extremities exam: no pedal edema, pulses palpable in b/l lower extremities. no calf tenderness Neurological exam: CN II-XII intact, AO X1, no focal deficits. 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 CT head -ve, B12/folate unremarkable, TSH normal, ammonia WNL. MRI with punctate infarct on rt parietooccipital lobe. ECHO with preserved EF. Carotid with lt 40-59% on left. Neurology following. aspirin changed to plavix. - Hyponatremia worsening. hypotonic fluid was stopped. repeat BMP. f/u Urine and serum osmolality and urine sodium. start NS at 100 cc. Monitor BMP q6h. 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 - Urine culture negative. Has urinary retention. c/w diamond. Will need outpatient urology follow up. Stop antibiotics. - PT/OT recommended for SNF placement, working with SW. Placement pending. - elevate BP. resume norvasc and coreg held due to CVA. - Subcutaneous heparin for dvt ppx. - Time Spent with Patient Total time spent is greater than 50% in coordination of care (as documented) at patient's floor/unit and/or counseling patient: Internal Medicine: Result - Labs CBC & Chem 7: 02/22/19 04:29 02/24/19 08:38 Labs: BMP 02/24/19 00:33 Sodium 120 L* Potassium 3.7 Chloride 91 L Carbon Dioxide 21 L BUN 13 Creatinine 1.44 H Glucose 100 Calcium 9.2 Urine 02/24/19 Range/Units 06:33 Urine Color Yellow (Yellow) Urine Clarity Clear (Clear) Urine pH 7.0 (5.0-8.0) pH Units Ur Specific [place] 1.020 (1.010-1.025) Urine Protein Trace (Neg-Trace) mg/dL Urine Glucose (UA) Normal (Normal) mg/dL - ABG Interpretation ABG results: PT/INR, D-dimer PT 12.0 Seconds (9.4-12.1) 02/19/19 03:55 - Impressions Impressions Echocardiogram 02/22/19 12:29 Impressions: Technically sub-optimal due to clinical status. Patient was combative, incomplete study. LVEF 60-65%. Not all LV segments were well visualized, but overall LV function is normal. Normal right ventricular structure and function. Valves not well assessed. Findings: Study Quality * Technically sub-optimal due to clinical status. Patient was combative, incomplete study. ECG Findings * Normal sinus rhythm. Left Ventricle * LVEF 60-65%. * Not all LV segments were well visualized, but overall LV function is normal. Right Ventricle * Normal right ventricular structure and function. Left Atrium * Normal left atrial size. Right Atrium * Normal right atrial size. Interatrial Septum * Interatrial septum not well evaluated. Aortic Valve * Aortic valve not well visualized. Mitral Valve * No aortic regurgitation or stesd Tricuspid Valve * Tricuspid valve not well visualized. Pulmonic Valve * Pulmonic valve not well visualized. Aorta * Normally sized aortic root. Pericardium * The pericardium appears normal. IVC * The IVC is not well evaluated. Pulmonary Artery * Pulmonary artery not well visualized. Consult Discharge Plan - Plan Referrals: NONE,PCP [Primary Care Provider] - (2) Hypertension Qualifiers: Hypertension type: essential hypertension Qualified Code(s): I10 - Essential (primary) hypertension (4) UTI (urinary tract infection) Qualifiers: Urinary tract infection type: acute cystitis Hematuria presence: without hematuria Qualified Code(s): N30.00 - Acute cystitis without hematuria
[2019-02-24 09:05] LABS: BUN/Creatinine Ratio 9 (6-26); Blood Urea Nitrogen 13 mg/dL (8-23); Calcium 9.2 mg/dL (8.6-10.3); Carbon Dioxide 21 mEq/L (23-29); Chloride 92 mEq/L (98-107); Glucose 83 mg/dL (70-105); Osmolality,Calculated 255 (280-300); Sodium 123 mEq/L (136-145); eGFR For African Americans > 60 (> 60); eGFR For Non-African Americans 50 (> 60)
[2019-02-24] MEDS: amLODIPine 5 MG TABLET PO SCH (11:07)
[2019-02-24] MEDS: Megestrol Acetate 400 MG/10 ML UDC PO SCH (11:07)
[2019-02-24 13:53] LABS: BUN/Creatinine Ratio 10 (6-26); Blood Urea Nitrogen 14 mg/dL (8-23); Calcium 9.8 mg/dL (8.6-10.3); Carbon Dioxide 23 mEq/L (23-29); Chloride 91 mEq/L (98-107); Glucose 98 mg/dL (70-105); Osmolality,Calculated 256 (280-300); Potassium 4.2 mEq/L (3.5-5.1); Sodium 123 mEq/L (136-145); eGFR For African Americans > 60 (> 60); eGFR For Non-African Americans 51 (> 60)
--- NOTE | 2019-02-24 16:54 | Neurology Progress Note ---
Date of Encounter: 02/24/19 Time of Encounter: 16:52 Assessment and Plan (1) Stroke Current Visit: Yes Status: Acute Patient had a small lacunar infarct involving the right parietal white matter likely a lacunar infarct secondary to small vessel etiology. Patient completed echocardiogram which showed normal left ventricular ejection fraction. This was reported he suboptimal study due to excessive movements however, the chances of this being embolic event is thought to be low. Therefore I would not recommend repeat study. Continue patient on clopidogrel 75 mg daily for stroke prevention and continue statin therapy. Patient may benefit from physical therapy for gait training. Patient also has baseline cognitive impairment which is likely complicated by ongoing medical encephalopathy especially chronic kidney insufficiency. Please continue medical and supportive care Will sign off at this time, please call if any questions. Qualifiers: CVA mechanism: occlusion Precerebral and cerebral artery: unspecified cerebral artery Qualified Code(s): I63.50 - Cerebral infarction due to unspecified occlusion or stenosis of unspecified cerebral artery Subjective Principal diagnosis: Right Parietal Occipital Infarct Interval history: Patient is seen today and he examined at the bedside. It was reported that the patient had a fall early this morning likely mechanical in nature. Patient also was reportedly agitated after the fall but quickly improved. Currently, the patient is without any significant discomfort and he is more alert and oriented. No focal weakness noted. Patient completed echocardiogram which showed normal left ventricular ejection fraction but it was reported to be a suboptimal test due to agitation and being combative. Carotid artery Doppler study demonstrated 40-59 right ICA stenosis. Objective - Constitutional Vitals: Temp Pulse Resp BP Pulse Ox 97.6 F 76 14 147/93 98 02/24/19 10:30 02/24/19 16:38 02/24/19 16:38 02/24/19 16:38 02/24/19 16:38 - Neurological Exam Sensorimotor examination: Present: intact Motor Examination: Present: full strength in all major muscle groups Motor examination - right side: 5/5: deltoids, biceps, triceps, wrist flexion, wrist extension, aircraft landing gear inspector, hip flexors, tibialis Anterior, quadriceps, toe extension (EHL), plantarflexion Motor examination - left side: 5/5: deltoids, biceps, triceps, wrist flexion, wrist extension, hip flexors, aircraft landing gear inspector, quadriceps, tibialis Anterior, toe extension (EHL), plantarflexion Sensation intact: Present: intact Posture: Present: other (None) Reflex and gait examination: normal gait (Able to walk without assistance but is unsteady on his feet) Reflexes: Biceps: 2+, Triceps: 2+, Brachioradialis: 2+, Patella: 2+, Achilles: 2+ Mental Status Examination: Present: awake, alert, oriented to person, oriented to place (Unable to name the hospital), follows commands appropriately (followed most commands appropriately, easily distracted and lost attention quickly), no agnosia, no aphasia, no aproxia, delerious (Improved at present time), makes eye contact, follows simple commands, demented, impaired memory, impaired cognition, cognitive impairment (Partially disoriented to time and place. Unable to spell. Repeats normal. Cognitive function loderately impaired) Cranial nerve examination: Present: PERRL, EOMI, corneal reflexes brisk symmetrically, sensory to face intact, no facial asymmetry is present, no dysarthria, hearing is intact symmetrically, soft palate elevates bilaterally upon phonation, tongue protrudes midline, no atrophy or facial fasiculations present Cerebellar examination: Present: performs finger to nose and heel to watt symmetrically without ataxia (unable to perform ), no difficulty with rapid alternating movements Results - Laboratory Findings CBC and BMP: 02/22/19 04:29 02/24/19 13:06 Abnormal lab findings: Abnormal lab results Eosinophils # 1.1 K/mcL (0.0-0.6) H 02/21/19 06:07 Sodium 123 mEq/L (136-145) L 02/24/19 13:06 Potassium 3.4 mEq/L (3.5-5.1) L 02/20/19 06:45 Chloride 91 mEq/L (98-107) L 02/24/19 13:06 Carbon Dioxide 21 mEq/L (23-29) L 02/24/19 08:38 BUN 28 mg/dL (8-23) H 02/19/19 03:55 Creatinine 1.35 mg/dL (0.70-1.30) H 02/24/19 13:06 Est GFR ( Amer) 57 (> 60) L 02/24/19 00:33 Est GFR (Non-Af Amer) 51 (> 60) L 02/24/19 13:06 Glucose 62 mg/dL (70-105) L 02/20/19 06:45 POC Glucose 100 mg/dL (70-99) H 02/24/19 00:03 Serum Osmolality 259 mOsm/kg (280-300) L 02/24/19 00:33 Calculated Osmolality 256 (280-300) L 02/24/19 13:06 AST 52 Units/L (13-39) H 02/21/19 06:07 Vitamin B12 > 1500 pg/mL (250-1100) H 02/20/19 10:54 Folate > 22.3 ng/mL (3.0-16.0) H 02/20/19 10:54 Urine Protein 30 mg/dL (Neg-Trace) H 02/19/19 04:35 Urine Ketones 15 mg/dL (Negative) H 02/24/19 06:33 Urine Blood Trace-intact (Negative) H 02/24/19 06:33 Urine Nitrite Positive (Negative) A 02/19/19 04:35 Urine Bilirubin Small (Negative) H 02/19/19 04:35 Ur Leukocyte Esterase Trace (Negative) H 02/19/19 04:35 Ur Squamous Epith Cells Many per lpf (None-Few) H 02/19/19 04:35 Urine Bacteria Many per hpf (None-Few) H 02/19/19 04:35 Ur Culture Indicated? YES (NO) A 02/24/19 06:33 Consult Discharge Plan - Plan Referrals: NONE,PCP [Primary Care Provider] -
[2019-02-24] MEDS ORDERED: Melatonin 3 MG TABLET PO ONE (21:48)
[2019-02-24] MEDS ORDERED: *HR* LORazepam 2 MG/ML VIAL IVP ONE (23:12)
[2019-02-25] MEDS: *HR* Heparin 5,000 UNIT/ML VIAL SQ SCH (05:16)
[2019-02-25 06:19] LABS: BUN/Creatinine Ratio 9 (6-26); Blood Urea Nitrogen 12 mg/dL (8-23); Calcium 10.3 mg/dL (8.6-10.3); Carbon Dioxide 22 mEq/L (23-29); Chloride 96 mEq/L (98-107); Glucose 86 mg/dL (70-105); Osmolality,Calculated 271 (280-300); Potassium 4.1 mEq/L (3.5-5.1); Sodium 131 mEq/L (136-145); eGFR For African Americans > 60 (> 60); eGFR For Non-African Americans 54 (> 60)
--- NOTE | 2019-02-25 07:58 | Discharge Summary ---
- NOTES TO OUTPATIENT PROVIDER Notes to Outpatient Provider: Patient was discharged to SNF for rehabilitation. 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 Discharged with fluid restriction 2 L. Patient will also need to follow up urology as he had some urinary retention. Orders not resulted at time of discharge: Pending orders 02/24/19 06:33 Culture,Urine [RM] Stat Date of Encounter: 02/25/19 Time of Encounter: 07:56 - Discharge Diagnosis (1) DVT prophylaxis Priority: Secondary Status: Acute (2) Hypertension Priority: Secondary Status: Chronic Qualifiers: Hypertension type: essential hypertension Qualified Code(s): I10 - Essential (primary) hypertension (3) CVA, old, aphasia Priority: Secondary Status: Chronic (4) UTI (urinary tract infection) Priority: Primary Status: Acute Qualifiers: Urinary tract infection type: acute cystitis Hematuria presence: without hematuria Qualified Code(s): N30.00 - Acute cystitis without hematuria (5) Acute kidney injury superimposed on chronic kidney disease Priority: Primary Status: Resolved (6) Encephalopathy Priority: Primary Status: Acute (7) Stroke Priority: Primary Status: Acute Qualifiers: CVA mechanism: occlusion Precerebral and cerebral artery: unspecified cerebral artery Qualified Code(s): I63.50 - Cerebral infarction due to unspecified occlusion or stenosis of unspecified cerebral artery (8) Malnutrition Priority: Secondary Status: Acute Qualifiers: Malnutrition type: protein-calorie malnutrition Protein-calorie malnutrition severity: mild Qualified Code(s): E44.1 - Mild protein-calorie malnutrition (9) CKD (chronic kidney disease) stage 3, GFR 30-59 ml/min Priority: Secondary Status: Chronic Hospital course: Mr. Castillo is a 78 year old male with past medical history of hypertension, CK-MB, CVA came in with 3 days history of generalized weakness. Was found to have signs of urinary tract infection and was started on empiric antibiotics. He was started on IV fluids as well. Patient was found to have urinary retention with increased PVR. He had Diamond's catheter placed. His renal function improved with IV fluids. He also developed some encephalopathy and was found to have small stroke on the right parieto-occipital lobe. Neurology was consulted. Patient encephalopathy likely multifactorial on baseline dementia, humaira on ckd and with possible continuation of stroke and urinary retention with UTI. Continues antibiotic course. 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 His sodium improved with isotonic IV fluids. We will restrict fluid to 2 L a day. Patient would be discharged with Diamond catheter in place and will need to follow up with urology as outpatient as well as nephrology. He will be discharged to SNF for further rehabilitation. Discharge discussed with: patient, nurse, social work - Time Spent with Patient Total time spent providing and/or coordinating discharge services: Time spent: Greater than 30 minutes (35) - Discharge Medications Prescriptions: New Megestrol Acetate [Megace] 400 mg PO DAILY udc Clopidogrel [Plavix] 75 mg PO DAILY tablet Heparin 5,000 unit SQ Q12HCO vial Atorvastatin [Lipitor] 40 mg PO HS tablet Carvedilol [Coreg] 6.25 mg PO BIDWM tablet amLODIPine [Norvasc] 10 mg PO DAILY tablet Tamsulosin [Flomax] 0.4 mg PO DAILY 30 Days #30 cap.er.24h Discontinued Aspirin Enteric Coated [Aspirin EC] 81 mg PO DAILY Home Medications: Atorvastatin [Lipitor] 40 mg PO HS tablet 02/25/19 [Rx] Carvedilol [Coreg] 6.25 mg PO BIDWM tablet 02/25/19 [Rx] Clopidogrel [Plavix] 75 mg PO DAILY tablet 02/25/19 [Rx] Heparin 5,000 unit SQ Q12HCO vial 02/25/19 [Rx] Megestrol Acetate [Megace] 400 mg PO DAILY udc 02/25/19 [Rx] Tamsulosin [Flomax] 0.4 mg PO DAILY 30 Days #30 cap.er.24h 02/25/19 [Rx] amLODIPine [Norvasc] 10 mg PO DAILY tablet 02/25/19 [Rx] Allergies/Adverse Reactions: Allergy/AdvReac Type Severity Reaction Status Date / Time Iodinated Contrast- Oral and AdvReac Hallucinati Verified 02/21/19 09:44 IV Dye ng Date of admission: 02/22/19 13:32 Primary care physician: PCP NONE Consults: 02/19/19 07:13 Consult to Occupational Therapy [CONS] Routine Comment: Evaluate, develop and implement POC Reason for Consult: complicated UTI, generalized weakness Does patient have active BEDREST order?: No Is patient medically & hemodynamically stable?: Yes Consult to Physical Therapy [CONS] Routine Comment: Evaluate, develop and implement POC Reason for Consult: complicated UTI, generalized weakness Does patient have active BEDREST order?: No Is patient medically & hemodynamically stable?: Yes 02/21/19 07:53 Consult to Auto Carrier Driver [CONS] Routine Reason for SW Consult: PT/OT RECOMMEND SNF 02/22/19 12:42 Consult to Neurology [CONS] Routine Consulting Provider: Neu[facility] Reason for Consult: encephalopathy despite being tx for acute on chronic kidney failure and UTI. MRI with infarct in high R parietooccipital lobe Call Completed: Yes Discharging clinician: Rajesh Schmitt - Constitutional Vitals: Temp Pulse Resp BP Pulse Ox 98.4 F 77 16 152/70 96 02/24/19 20:36 02/24/19 20:36 02/24/19 20:36 02/24/19 20:36 02/24/19 20:36 Exam: General: In no acute distress. Respiratory exam: CTAB. no accessory muscle use, rales, rhonchi, wheezes Cardiovascular exam: RRR, +S1, +S2. no murmur, gallop, rubs. GI/Abdominal exam: Non-tender, Non-distended, normal bowel sounds, soft, no peritoneal signs. diamond in place. Extremities exam: no pedal edema, pulses palpable in b/l lower extremities. no calf tenderness Neurological exam: CN II-XII intact, AO X1, no focal deficits. on and off confused. Skin exam: No skin rash - Patient Status Disposition: Transfer SNF Condition: Fair - Discharge Instructions Follow Up With: NONE,PCP [Primary Care Provider] - - Diet and Activity Activity: as per physical therapy
--- NOTE | 2019-02-25 08:11 | Physician Discharge Referral ---
ExtendedCare Referral Info Institutional Level of Care: Skilled - Diagnosis (1) DVT prophylaxis Status: Acute (2) Hypertension Status: Chronic (3) CVA, old, aphasia Status: Chronic (4) UTI (urinary tract infection) Status: Acute (5) Acute kidney injury superimposed on chronic kidney disease Status: Resolved (6) Encephalopathy Status: Acute (7) Stroke Status: Acute (8) Malnutrition Status: Acute (9) CKD (chronic kidney disease) stage 3, GFR 30-59 ml/min Status: Chronic - Transfer Medications Prescriptions: Tamsulosin [Flomax] 0.4 mg PO DAILY 30 Days #30 cap.er.24h Home Medications: Atorvastatin [Lipitor] 40 mg PO HS tablet 02/25/19 [Rx] Carvedilol [Coreg] 6.25 mg PO BIDWM tablet 02/25/19 [Rx] Clopidogrel [Plavix] 75 mg PO DAILY tablet 02/25/19 [Rx] Heparin 5,000 unit SQ Q12HCO vial 02/25/19 [Rx] Megestrol Acetate [Megace] 400 mg PO DAILY udc 02/25/19 [Rx] Tamsulosin [Flomax] 0.4 mg PO DAILY 30 Days #30 cap.er.24h 02/25/19 [Rx] amLODIPine [Norvasc] 10 mg PO DAILY tablet 02/25/19 [Rx] Allergies/Adverse Reactions: Allergy/AdvReac Type Severity Reaction Status Date / Time Iodinated Contrast- Oral and AdvReac Hallucinati Verified 02/21/19 09:44 IV Dye ng - Respiratory Orders Smoking Cessation: Smoking cessation has been advised. For more information, call the [place] Tobacco Quit Line at 9-560-ZIZL-NOW. - Treatments List/Other: Patient will need fluid restriction to 2 L a day. Can try voiding trial and evaluate need for continued diamond with urology as it might be contributing to some agitation/confusion from discomfort. CERTIFICATION: I certify that the transfer of the above named patient to an Extended Care Facility is necessary for the continuing treatment of the diagnosis listed. The above information is true and accurate reflection of patient's current condition. Confidential - Redisclosure prohibited without a patient's written consent.
[2019-02-25 08:22] VITALS: BP 195/66
[2019-02-25] MEDS: Megestrol Acetate 400 MG/10 ML UDC PO SCH (09:52)
[2019-02-25] MEDS: amLODIPine 5 MG TABLET PO SCH (09:53)
== END 2019-02-25 11:35 | DRG 64 ==
LOC: 3BNU 03:23 → EMEROOARM 03:23 → SUATTDRO 06:03 → 3BNU 06:45 → SUATTDRO 02-22 13:32
PROVIDERS: ADMIT Internal Medicine; ATTEND Internal Medicine

== ENCOUNTER 2019-05-10 12:30 | Inpatient (IN) ==
[2019-05-10 13:53] LABS: Basophils # 0.1 K/mcL (0.0-0.2); Basophils % 1.4 %; Eosinophils # 1.2 K/mcL (0.0-0.6); Eosinophils % 13.2 %; Hematocrit 40.5 % (37.5-50.1); Immature Granulocytes % 0.2 % (0-4); Lymphocytes # 2.4 K/mcL (0.6-4.6); Lymphocytes % 25.7 %; Mean Corpuscular HGB Conc 34.6 g/dL (31.6-35.5); Mean Corpuscular Volume 89.6 fL (83.0-100.0); Mean Platelet Volume 12.1 fL (9.4-12.4); Monocytes # 0.9 K/mcL (0.0-1.3); Monocytes % 9.5 %; Neutrophils # 4.7 K/mcL (1.6-8.9); Platelet Count 226 K/mcL (140-400); Red Blood Count 4.52 M/mcL (4.19-5.50); Red Cell Distribution Width 13.6 % (11.5-14.5); White Blood Count 9.4 K/mcL (4.3-11.1)
[2019-05-10 13:57] LABS: Bilirubin,Urine Small (Negative); Blood,Urine Negative (Negative); Clarity,Urine Clear (Clear); Color,Urine Yellow (Yellow); Glucose,Urine (UA) Normal (Normal); Ketones,Urine 80 mg/dL (Negative); Leukocyte Esterase,Urine Negative (Negative); Nitrite,Urine Negative (Negative); Protein,Urine Trace mg/dL (Neg-Trace); Specific Gravity,Urine 1.016 (1.010-1.025); Urobilinogen,Urine Normal (Normal)
[2019-05-10 14:11] LABS: Prothrombin Time 11.6 Seconds (9.4-12.1)
[2019-05-10 14:14] LABS: Activated Partial Thrombo Time 37.6 Seconds (26.0-36.0)
[2019-05-10 14:15] LABS: Alanine Aminotransferase 17 Units/L (7-52); Albumin 4.5 g/dL (3.5-5.7); Albumin/Globulin Ratio 1.6 (1.1-2.2); Alkaline Phosphatase 62 Units/L (34-104); Aspartate Amino Transferase 34 Units/L (13-39); BUN/Creatinine Ratio 13 (6-26); Bilirubin,Total 0.7 mg/dL (0.3-1.0); Blood Urea Nitrogen 23 mg/dL (8-23); Calcium 9.8 mg/dL (8.6-10.3); Carbon Dioxide 21 mEq/L (23-29); Chloride 98 mEq/L (98-107); Globulin 2.8 g/dL (2.4-3.5); Glucose 52 mg/dL (70-105); Osmolality,Calculated 277 (280-300); Sodium 133 mEq/L (136-145); Total Protein 7.3 g/dL (6.4-8.9); Troponin I < 0.03 ng/mL (< 0.04); eGFR For African Americans 45 (> 60); eGFR For Non-African Americans 37 (> 60)
[2019-05-10] MEDS ORDERED: 0.9 % Sodium Chloride 500 ML IV ONE (15:21)
[2019-05-10] MEDS ORDERED: Naloxone 0.4 MG/ML INJ IVP PRN (15:37)
[2019-05-10] MEDS ORDERED: MOM Conc 10 ML UD.LIQ PO PRN (15:37)
[2019-05-10] MEDS ORDERED: Mag Hydrox/Al Hydrox/Simeth 30 ML UDC PO PRN (15:37)
[2019-05-10] MEDS ORDERED: Ondansetron 4 MG/2 ML VIAL IVP PRN (15:37)
[2019-05-10] MEDS ORDERED: Acetaminophen 325 MG TABLET PO PRN (15:37)
[2019-05-10] MEDS ORDERED: traMADol 50 MG TABLET PO PRN (15:37)
[2019-05-10 15:55] LABS: VBG HCO3 20 mEq/L (21-27); VBG PCO2 36 mmHg (41-51); VBG PH 7.35 pH Units (7.32-7.42); VBG PO2 119 mmHg (25-50)
[2019-05-10] MEDS: *HR* Heparin 5,000 UNIT/ML VIAL SQ SCH (19:18)
[2019-05-10] MEDS: 0.9 % Sodium Chloride 1,000 ML IVC SCH (19:20)
[2019-05-11] MEDS: 0.9 % Sodium Chloride 1,000 ML IVC SCH ×5 (03:04→23:47)
[2019-05-11 04:49] LABS: Basophils # 0.1 K/mcL (0.0-0.2); Basophils % 1.6 %; Eosinophils # 1.1 K/mcL (0.0-0.6); Hematocrit 37.6 % (37.5-50.1); Hemoglobin 13.1 g/dL (12.9-16.9); Immature Granulocytes % 0.2 % (0-4); Lymphocytes # 2.5 K/mcL (0.6-4.6); Lymphocytes % 30.5 %; Mean Corpuscular HGB Conc 34.8 g/dL (31.6-35.5); Mean Corpuscular Hemoglobin 30.8 pg (28.0-33.3); Mean Corpuscular Volume 88.5 fL (83.0-100.0); Mean Platelet Volume 12.6 fL (9.4-12.4); Monocytes # 0.8 K/mcL (0.0-1.3); Monocytes % 9.6 %; Neutrophils # 3.8 K/mcL (1.6-8.9); Platelet Count 196 K/mcL (140-400); Red Blood Count 4.25 M/mcL (4.19-5.50); Red Cell Distribution Width 13.6 % (11.5-14.5); Segmented Neutrophils % 45.1 %; White Blood Count 8.3 K/mcL (4.3-11.1)
[2019-05-11 05:12] LABS: Calcium 9.3 mg/dL (8.6-10.3); Potassium 3.7 mEq/L (3.5-5.1)
[2019-05-11] MEDS ORDERED: Dextrose Gel 15 GM/37.5 ML TUBE PO PRN ×2 (05:21)
[2019-05-11] MEDS ORDERED: D5% in Water 1,000 ML IVC PRN (05:21)
[2019-05-11 05:25] LABS: Thyroid Stimulating Hormone 1.39 mcIU/mL (0.340-5.600)
[2019-05-11] MEDS: *HR* Heparin 5,000 UNIT/ML VIAL SQ SCH ×2 (05:35→18:51)
[2019-05-11] MEDS: *HR* Dextrose 50 % in Water (Syg) 50 ML SYRINGE IVP PRN (05:36)
[2019-05-11 05:39] LABS: Vitamin B12 > 1500 pg/mL (250-1100); Vitamin D 25 Hydroxy 37 ng/mL (30-80)
[2019-05-11] MEDS: Vitamin B Complex/Vit C/Vit E 1 EACH TABLET PO SCH (10:13)
[2019-05-11] MEDS ORDERED: Gadolinium Contrast Agent (WT Based) IV PRN (13:53)
[2019-05-11] MEDS ORDERED: *HR* LORazepam 2 MG/ML VIAL IVP ONE (13:58)
[2019-05-11] MEDS: amLODIPine 5 MG TABLET PO SCH (18:51)
[2019-05-11] MEDS: *HR* Promethazine 25 MG/ML VIAL IVP PRN (21:38)
[2019-05-11] MEDS ORDERED: Haloperidol Lactate 5 MG/ML VIAL IVP ONE (23:03)
[2019-05-12] MEDS: *HR* Dextrose 50 % in Water (Syg) 50 ML SYRINGE IVP PRN (04:23)
[2019-05-12 05:02] LABS: Amphetamine Screen,Urine Negative ng/mL (Cutoff=1000); Barbiturate Screen,Urine Negative ng/mL (Cutoff=200); Benzodiazepines Screen,Urine Negative ng/mL (Cutoff=200); Cannabinoid Screen,Urine Negative ng/mL (Cutoff = 50); Cocaine Screen,Urine Negative ng/mL (Cutoff= 300); Opiate Screen,Urine Negative ng/mL (Cutoff=300); Phencyclidine Screen,Urine Negative ng/mL (Cutoff=25)
[2019-05-12] MEDS: *HR* Heparin 5,000 UNIT/ML VIAL SQ SCH ×2 (05:18→17:50)
[2019-05-12 07:18] LABS: Basophils # 0.1 K/mcL (0.0-0.2); Basophils % 1.4 %; Eosinophils # 1.2 K/mcL (0.0-0.6); Eosinophils % 15.2 %; Hematocrit 38.4 % (37.5-50.1); Hemoglobin 13.3 g/dL (12.9-16.9); Immature Granulocytes % 0.4 % (0-4); Lymphocytes % 25.5 %; Mean Corpuscular HGB Conc 34.6 g/dL (31.6-35.5); Mean Corpuscular Hemoglobin 30.8 pg (28.0-33.3); Mean Corpuscular Volume 88.9 fL (83.0-100.0); Mean Platelet Volume 12.8 fL (9.4-12.4); Monocytes # 0.9 K/mcL (0.0-1.3); Monocytes % 11.8 %; Neutrophils # 3.5 K/mcL (1.6-8.9); Platelet Count 195 K/mcL (140-400); Red Blood Count 4.32 M/mcL (4.19-5.50); Red Cell Distribution Width 13.7 % (11.5-14.5); Segmented Neutrophils % 45.7 %; White Blood Count 7.7 K/mcL (4.3-11.1)
[2019-05-12 07:36] LABS: Calcium 9.6 mg/dL (8.6-10.3); Potassium 4.2 mEq/L (3.5-5.1)
[2019-05-12] MEDS ORDERED: *HR* LORazepam 2 MG/ML VIAL IVP ONE (07:49)
[2019-05-12] MEDS: amLODIPine 5 MG TABLET PO SCH (08:12)
[2019-05-12] MEDS: Vitamin B Complex/Vit C/Vit E 1 EACH TABLET PO SCH (08:12)
[2019-05-12] MEDS: 0.9 % Sodium Chloride 1,000 ML IVC SCH (22:36)
[2019-05-13] MEDS: Nicotine 14 MG PATCH.TD24 TD SCH (00:42)
[2019-05-13] MEDS: *HR* Heparin 5,000 UNIT/ML VIAL SQ SCH ×2 (05:16→17:57)
[2019-05-13 07:00] LABS: Basophils # 0.1 K/mcL (0.0-0.2); Basophils % 1.2 %; Eosinophils # 1.4 K/mcL (0.0-0.6); Eosinophils % 17.9 %; Hematocrit 36.4 % (37.5-50.1); Hemoglobin 12.7 g/dL (12.9-16.9); Immature Granulocytes % 0.3 % (0-4); Lymphocytes # 1.5 K/mcL (0.6-4.6); Lymphocytes % 19.5 %; Mean Corpuscular HGB Conc 34.9 g/dL (31.6-35.5); Mean Corpuscular Hemoglobin 30.9 pg (28.0-33.3); Mean Corpuscular Volume 88.6 fL (83.0-100.0); Mean Platelet Volume 12.5 fL (9.4-12.4); Monocytes # 0.7 K/mcL (0.0-1.3); Monocytes % 9.4 %; Neutrophils # 3.9 K/mcL (1.6-8.9); Platelet Count 190 K/mcL (140-400); Red Blood Count 4.11 M/mcL (4.19-5.50); Segmented Neutrophils % 51.7 %; White Blood Count 7.6 K/mcL (4.3-11.1)
[2019-05-13] MEDS: 0.9 % Sodium Chloride 1,000 ML IVC SCH ×3 (07:13→17:48)
[2019-05-13 07:14] LABS: Calcium 9.2 mg/dL (8.6-10.3); Chol/HDL Ratio 5.1 (0-4.9); Potassium 3.9 mEq/L (3.5-5.1)
[2019-05-13] MEDS: amLODIPine 5 MG TABLET PO SCH (08:39)
[2019-05-13] MEDS: Vitamin B Complex/Vit C/Vit E 1 EACH TABLET PO SCH (08:39)
[2019-05-13 09:15] LABS: Estimated Average Glucose 114 mg/dl
[2019-05-13] MEDS: Sennosides 8.6 MG TABLET PO SCH (17:51)
[2019-05-13] MEDS: Gentamicin OPTH Soln 5 ML BOTTLE LEFT EYE SCH ×3 (17:51→21:45)
[2019-05-13] MEDS: Gentamicin OPTH Soln 5 ML BOTTLE RIGHT EYE SCH ×3 (17:51→21:44)
[2019-05-13] MEDS: *HR* Promethazine 25 MG/ML VIAL IVP PRN (21:41)
[2019-05-14 04:42] LABS: Bilirubin,Urine Negative (Negative); Blood,Urine Negative (Negative); Clarity,Urine Clear (Clear); Color,Urine Yellow (Yellow); Glucose,Urine (UA) Normal (Normal); Ketones,Urine 15 mg/dL (Negative); Leukocyte Esterase,Urine Negative (Negative); Nitrite,Urine Negative (Negative); Protein,Urine Negative (Neg-Trace); Specific Gravity,Urine 1.007 (1.010-1.025); Urobilinogen,Urine Normal (Normal)
[2019-05-14 06:34] LABS: Basophils # 0.1 K/mcL (0.0-0.2); Eosinophils # 1.4 K/mcL (0.0-0.6); Eosinophils % 15.2 %; Hematocrit 35.8 % (37.5-50.1); Hemoglobin 12.4 g/dL (12.9-16.9); Immature Granulocytes % 0.2 % (0-4); Lymphocytes # 1.9 K/mcL (0.6-4.6); Lymphocytes % 20.9 %; Mean Corpuscular HGB Conc 34.6 g/dL (31.6-35.5); Mean Corpuscular Hemoglobin 30.7 pg (28.0-33.3); Mean Corpuscular Volume 88.6 fL (83.0-100.0); Mean Platelet Volume 12.3 fL (9.4-12.4); Monocytes # 1.1 K/mcL (0.0-1.3); Monocytes % 11.7 %; Neutrophils # 4.6 K/mcL (1.6-8.9); Platelet Count 195 K/mcL (140-400); Red Blood Count 4.04 M/mcL (4.19-5.50); Red Cell Distribution Width 13.5 % (11.5-14.5); White Blood Count 9.1 K/mcL (4.3-11.1)
[2019-05-14] MEDS: Nicotine 14 MG PATCH.TD24 TD SCH (06:37)
[2019-05-14] MEDS: *HR* Heparin 5,000 UNIT/ML VIAL SQ SCH (06:40)
[2019-05-14 06:55] LABS: BUN/Creatinine Ratio 9 (6-26); Blood Urea Nitrogen 11 mg/dL (8-23); Calcium 9.4 mg/dL (8.6-10.3); Carbon Dioxide 19 mEq/L (23-29); Chloride 101 mEq/L (98-107); Glucose 71 mg/dL (70-105); Osmolality,Calculated 276 (280-300); Potassium 3.7 mEq/L (3.5-5.1); Sodium 134 mEq/L (136-145); eGFR For African Americans > 60 (> 60); eGFR For Non-African Americans 54 (> 60)
[2019-05-14] MEDS ORDERED: Albumin 25% 25gram/100mL 25 GM/100 ML IV.SOLN ONE (18:53)
[2019-05-14] MEDS: Gentamicin OPTH Soln 5 ML BOTTLE RIGHT EYE SCH (20:48)
[2019-05-14] MEDS: Gentamicin OPTH Soln 5 ML BOTTLE LEFT EYE SCH (20:48)
[2019-05-15] MEDS: Gentamicin OPTH Soln 5 ML BOTTLE RIGHT EYE SCH ×6 (00:18→21:34)
[2019-05-15] MEDS: Gentamicin OPTH Soln 5 ML BOTTLE LEFT EYE SCH ×5 (00:19→21:34)
[2019-05-15] MEDS: amLODIPine 5 MG TABLET PO SCH ×2 (00:20→09:37)
[2019-05-15] MEDS: Vitamin B Complex/Vit C/Vit E 1 EACH TABLET PO SCH ×2 (00:20→09:43)
[2019-05-15] MEDS: Sennosides 8.6 MG TABLET PO SCH ×2 (00:21→09:43)
[2019-05-15] MEDS: *HR* Heparin 5,000 UNIT/ML VIAL SQ SCH ×3 (00:22→17:37)
[2019-05-15] MEDS: Nicotine 14 MG PATCH.TD24 TD SCH ×2 (00:26→05:03)
[2019-05-15] MEDS ORDERED: Albumin 25% 25gram/100mL 25 GM/100 ML IV.SOLN ONE (05:21)
[2019-05-15] MEDS ORDERED: Chloraseptic Spray 177 ML BOTTLE MM PRN (15:22)
[2019-05-16] MEDS: Nicotine 14 MG PATCH.TD24 TD SCH (05:13)
[2019-05-16 05:14] LABS: Hemoglobin 12.5 g/dL (12.9-16.9); Mean Corpuscular HGB Conc 34.7 g/dL (31.6-35.5); Mean Corpuscular Hemoglobin 30.8 pg (28.0-33.3); Mean Corpuscular Volume 88.7 fL (83.0-100.0); Mean Platelet Volume 12.5 fL (9.4-12.4); Platelet Count 207 K/mcL (140-400); Red Blood Count 4.06 M/mcL (4.19-5.50); Red Cell Distribution Width 13.8 % (11.5-14.5); White Blood Count 6.3 K/mcL (4.3-11.1)
[2019-05-16] MEDS: *HR* Heparin 5,000 UNIT/ML VIAL SQ SCH ×2 (05:15→18:59)
[2019-05-16 05:34] LABS: Calcium 9.1 mg/dL (8.6-10.3); Magnesium 1.8 mg/dL (1.6-2.6); Potassium 3.8 mEq/L (3.5-5.1)
[2019-05-16] MEDS: Sennosides 8.6 MG TABLET PO SCH (09:00)
[2019-05-16] MEDS: amLODIPine 5 MG TABLET PO SCH (09:01)
[2019-05-16] MEDS: Vitamin B Complex/Vit C/Vit E 1 EACH TABLET PO SCH (09:01)
[2019-05-16] MEDS: Gentamicin OPTH Soln 5 ML BOTTLE RIGHT EYE SCH ×4 (09:02→21:20)
[2019-05-16] MEDS: Gentamicin OPTH Soln 5 ML BOTTLE LEFT EYE SCH ×4 (09:02→21:20)
[2019-05-16] MEDS: Ringers Solution, Lactated 1,000 ML IVC SCH (18:50)
[2019-05-17] MEDS: *HR* Heparin 5,000 UNIT/ML VIAL SQ SCH ×2 (05:31→17:42)
[2019-05-17] MEDS: Nicotine 14 MG PATCH.TD24 TD SCH (05:31)
[2019-05-17 07:00] LABS: Basophils # 0.1 K/mcL (0.0-0.2); Basophils % 1.7 %; Eosinophils # 1.4 K/mcL (0.0-0.6); Eosinophils % 20.8 %; Hematocrit 33.4 % (37.5-50.1); Hemoglobin 11.7 g/dL (12.9-16.9); Immature Granulocytes % 0.3 % (0-4); Lymphocytes # 2.2 K/mcL (0.6-4.6); Lymphocytes % 32.9 %; Mean Corpuscular Hemoglobin 31.4 pg (28.0-33.3); Mean Corpuscular Volume 89.5 fL (83.0-100.0); Mean Platelet Volume 12.2 fL (9.4-12.4); Monocytes # 0.8 K/mcL (0.0-1.3); Monocytes % 11.5 %; Neutrophils # 2.2 K/mcL (1.6-8.9); Platelet Count 173 K/mcL (140-400); Red Blood Count 3.73 M/mcL (4.19-5.50); Red Cell Distribution Width 13.4 % (11.5-14.5); Segmented Neutrophils % 32.8 %; White Blood Count 6.6 K/mcL (4.3-11.1)
[2019-05-17 08:06] LABS: Albumin 3.5 g/dL (3.5-5.7); Albumin/Globulin Ratio 1.8 (1.1-2.2); Bilirubin,Total 0.5 mg/dL (0.3-1.0); Calcium 8.8 mg/dL (8.6-10.3); Potassium 3.4 mEq/L (3.5-5.1); Total Protein 5.5 g/dL (6.4-8.9)
[2019-05-17] MEDS: Ringers Solution, Lactated 1,000 ML IVC SCH ×2 (08:55→22:40)
[2019-05-17] MEDS: Sennosides 8.6 MG TABLET PO SCH (08:56)
[2019-05-17] MEDS: Gentamicin OPTH Soln 5 ML BOTTLE RIGHT EYE SCH ×4 (08:56→21:32)
[2019-05-17] MEDS: Vitamin B Complex/Vit C/Vit E 1 EACH TABLET PO SCH (08:56)
[2019-05-17] MEDS: Gentamicin OPTH Soln 5 ML BOTTLE LEFT EYE SCH ×4 (08:56→21:32)
[2019-05-17] MEDS: amLODIPine 5 MG TABLET PO SCH (08:56)
[2019-05-18 05:04] LABS: BUN/Creatinine Ratio 14 (6-26); Blood Urea Nitrogen 18 mg/dL (8-23); Calcium 9.1 mg/dL (8.6-10.3); Carbon Dioxide 24 mEq/L (23-29); Chloride 102 mEq/L (98-107); Glucose 67 mg/dL (70-105); Magnesium 1.4 mg/dL (1.6-2.6); Osmolality,Calculated 278 (280-300); Phosphorous 2.5 mg/dL (2.7-4.5); Potassium 4.1 mEq/L (3.5-5.1); Sodium 134 mEq/L (136-145); eGFR For African Americans > 60 (> 60); eGFR For Non-African Americans 55 (> 60)
[2019-05-18] MEDS: Nicotine 14 MG PATCH.TD24 TD SCH (06:20)
[2019-05-18] MEDS: *HR* Heparin 5,000 UNIT/ML VIAL SQ SCH (06:21)
[2019-05-18] MEDS: Vitamin B Complex/Vit C/Vit E 1 EACH TABLET PO SCH (08:38)
[2019-05-18] MEDS: amLODIPine 5 MG TABLET PO SCH (08:38)
[2019-05-18] MEDS: Sennosides 8.6 MG TABLET PO SCH (08:38)
[2019-05-18] MEDS: Gentamicin OPTH Soln 5 ML BOTTLE LEFT EYE SCH (08:39)
[2019-05-18] MEDS: Gentamicin OPTH Soln 5 ML BOTTLE RIGHT EYE SCH (08:39)
[2019-05-18 15:08] VITALS: BP 151/78
[2019-05-20 09:40] LABS: Proinsulin Intact 2.7 pmol/L (<=8.0)
== END 2019-05-18 18:23 | DRG 64 ==
LOC: EMEROOARM 12:30 → 3ANU 12:30 → SUATTDRO 16:31 → 3ANU 18:06 → SUATTDRO 05-12 17:17
PROVIDERS: ADMIT Internal Medicine; ATTEND Internal Medicine

== ENCOUNTER 2021-02-05 22:22 | Inpatient (IN) ==
[2021-02-05] MEDS ORDERED: Isovue-370 500 ML BOTTLE IVP ONE (22:51)
[2021-02-06 01:22] LABS: Bilirubin,Urine Negative (Negative); Blood,Urine Negative (Negative); Clarity,Urine Clear (Clear); Color,Urine Dark-Yellow (Yellow); Glucose,Urine (UA) Normal (Normal); Ketones,Urine 10 mg/dL (Negative); Leukocyte Esterase,Urine Small (Negative); Nitrite,Urine Negative (Negative); PH,Urine 5.5 pH Units (5.0-8.0); Protein,Urine 30 mg/dL (Neg-Trace); RBC,Urine 0-3 per hpf (0-3); Specific Gravity,Urine 1.026 (1.010-1.025)
[2021-02-06 02:00] LABS: Red Cell Distribution Width 19.6 % (11.5-14.5)
[2021-02-06 02:02] LABS: Basophils # 0.1 K/mcL (0.0-0.2); Basophils % 0.5 %; Eosinophils # 0.1 K/mcL (0.0-0.6); Eosinophils % 1.4 %; Hematocrit 39.5 % (37.5-50.1); Hemoglobin 12.7 g/dL (12.9-16.9); Immature Granulocytes % 0.5 % (0-4); Immature Platelets 18.9 % (1.1-6.1); Lymphocytes % 9.3 %; Mean Corpuscular HGB Conc 32.2 g/dL (31.6-35.5); Mean Corpuscular Hemoglobin 28.6 pg (28.0-33.3); Monocytes % 9.4 %; Nucleated Red Blood Cells 0.2 /100 WBC (0); Platelet Count 108 K/mcL (140-400); Red Blood Count 4.44 M/mcL (4.19-5.50); Segmented Neutrophils % 78.9 %; White Blood Count 10.2 K/mcL (4.3-11.1)
[2021-02-06 02:04] LABS: Neutrophils # 8.1 K/mcL (1.6-8.9)
[2021-02-06 02:05] LABS: INR 1.1; Prothrombin Time 12.7 Seconds (9.4-12.1)
[2021-02-06 02:25] LABS: Troponin I < 0.03 ng/mL (< 0.04)
[2021-02-06 02:30] LABS: Alanine Aminotransferase 15 Units/L (7-52); Albumin 3.1 g/dL (3.5-5.7); Albumin/Globulin Ratio 1.3 (1.1-2.2); Alkaline Phosphatase 72 Units/L (34-104); Aspartate Amino Transferase 44 Units/L (13-39); BUN/Creatinine Ratio 12 (6-26); Bilirubin,Direct 0.2 mg/dL (0.0-0.2); Bilirubin,Indirect 0.5 mg/dL (0.0-1.0); Bilirubin,Total 0.7 mg/dL (0.3-1.0); Blood Urea Nitrogen 23 mg/dL (8-23); Calcium 9.3 mg/dL (8.6-10.3); Carbon Dioxide 22 mEq/L (23-29); Chloride 104 mEq/L (98-107); Globulin 2.4 g/dL (2.4-3.5); Glucose 38 mg/dL (70-105); Lipase 24 Units/L (11-82); Osmolality,Calculated 290 (280-300); Potassium 3.4 mEq/L (3.5-5.1); Sodium 140 mEq/L (136-145); Total Protein 5.5 g/dL (6.4-8.9); eGFR For African Americans 41 (> 60); eGFR For Non-African Americans 33 (> 60)
[2021-02-06] MEDS ORDERED: 0.9 % Sodium Chloride 1,000 ML IVC STA (02:36)
[2021-02-06] MEDS ORDERED: *HR* Dextrose 50 % in Water (Vial) 50 ML VIAL IVP STA ×2 (02:37→03:17)
[2021-02-06] MEDS ORDERED: *HR* Dextrose 50 % in Water (Vial) 50 ML VIAL ONE (03:13)
[2021-02-06] MEDS ORDERED: Ondansetron 4 MG/2 ML VIAL IVP ONE (04:18)
[2021-02-06] MEDS ORDERED: Piperacillin/Tazobactam 3.375 GM in 0.9 % Sodium Chloride Mini Bag 100 ML IVPB STA (04:37)
[2021-02-06] MEDS ORDERED: MetroNIDAZOLE 500 MG/100 ML 500 MG/100 ML BAG IVPB ONE (04:39)
[2021-02-06] MEDS ORDERED: cefTRIAXone 1,000 MG in Water for inj. (sterile) 10 ML IVP ONE (04:39)
[2021-02-06] MEDS ORDERED: Naloxone 0.4 MG/ML INJ IVP PRN (05:49)
[2021-02-06] MEDS ORDERED: Melatonin 3 MG TABLET PO PRN (05:54)
[2021-02-06] MEDS ORDERED: Ondansetron 4 MG/2 ML VIAL IVP PRN (05:54)
[2021-02-06] MEDS ORDERED: D5% in 0.45% NACL 1,000 ML IVC SCH (06:00)
[2021-02-06] MEDS ORDERED: Dextrose Gel 15 GM/37.5 ML TUBE PO PRN (07:55)
[2021-02-06] MEDS ORDERED: *HR* Dextrose 50 % in Water (Vial) 50 ML VIAL IVP PRN (07:55)
[2021-02-06] MEDS ORDERED: D5% in Water 1,000 ML IVC PRN (07:55)
[2021-02-06] MEDS: Dextrose Gel 15 GM/37.5 ML TUBE PO PRN (08:03)
[2021-02-06] MEDS: D5% in 0.45% NACL 1,000 ML IVC SCH ×2 (08:38→15:04)
[2021-02-06] MEDS: Piperacillin/Tazobactam 3.375 GM in 0.9 % Sodium Chloride Mini Bag 100 ML IVPB SCH ×2 (08:38→16:20)
[2021-02-06] MEDS: *HR* Heparin 5,000 UNIT/ML VIAL SQ SCH (18:11)
[2021-02-07 03:20] LABS: Basophils # 0.1 K/mcL (0.0-0.2); Basophils % 0.5 %; Eosinophils # 0.4 K/mcL (0.0-0.6); Eosinophils % 3.2 %; Hematocrit 27.7 % (37.5-50.1); Hemoglobin 9.2 g/dL (12.9-16.9); Immature Granulocytes % 0.9 % (0-4); Immature Platelets 9.7 % (1.1-6.1); Lymphocytes # 1.5 K/mcL (0.6-4.6); Lymphocytes % 11.7 %; Mean Corpuscular HGB Conc 33.2 g/dL (31.6-35.5); Mean Corpuscular Hemoglobin 28.9 pg (28.0-33.3); Mean Corpuscular Volume 87.1 fL (83.0-100.0); Mean Platelet Volume 11.4 fL (9.4-12.4); Monocytes # 1.5 K/mcL (0.0-1.3); Monocytes % 11.7 %; Neutrophils # 9.3 K/mcL (1.6-8.9); Platelet Count 156 K/mcL (140-400); Red Blood Count 3.18 M/mcL (4.19-5.50); White Blood Count 12.9 K/mcL (4.3-11.1)
[2021-02-07 03:40] LABS: Calcium 7.7 mg/dL (8.6-10.3); Potassium 3.3 mEq/L (3.5-5.1)
[2021-02-07] MEDS: Piperacillin/Tazobactam 3.375 GM in 0.9 % Sodium Chloride Mini Bag 100 ML IVPB SCH ×3 (03:50→16:10)
[2021-02-07 04:01] LABS: Platelet Estimate Normal (Normal); Reactive Lymphocytes Present (Not Present)
[2021-02-07] MEDS: *HR* Heparin 5,000 UNIT/ML VIAL SQ SCH ×2 (05:04→18:55)
[2021-02-07] MEDS ORDERED: Ringers Solution, Lactated 1,000 ML IVC SCH (08:45)
[2021-02-07] MEDS: Calcium Gluconate 1gm/50mL 1 GM/50 ML BAG IVPB SCH ×2 (09:51→09:55)
[2021-02-07] MEDS: Lactobacillus 1 EACH CAP.SPRINK PO SCH ×2 (09:51→22:02)
[2021-02-07] MEDS ORDERED: Potassium Chloride 40 MEQ, Lidocaine 1% 2 ML in 0.9 % Sodium Chloride 500 ML IVPB ONE (10:00)
[2021-02-07 13:23] LABS: Hematocrit 27.7 % (37.5-50.1); Hemoglobin 9.6 g/dL (12.9-16.9)
[2021-02-07] MEDS: carvediloL 6.25 MG TABLET PO SCH (16:16)
[2021-02-07] MEDS: Dextrose Gel 15 GM/37.5 ML TUBE PO PRN (16:48)
[2021-02-07] MEDS: Mirtazapine 15 MG TABLET PO SCH (22:02)
[2021-02-08] MEDS: Piperacillin/Tazobactam 3.375 GM in 0.9 % Sodium Chloride Mini Bag 100 ML IVPB SCH ×3 (05:26→15:19)
[2021-02-08] MEDS: *HR* Heparin 5,000 UNIT/ML VIAL SQ SCH ×2 (06:04→16:49)
[2021-02-08 07:37] LABS: Basophils # 0.1 K/mcL (0.0-0.2); Basophils % 0.7 %; Eosinophils # 1.1 K/mcL (0.0-0.6); Eosinophils % 10.5 %; Hematocrit 26.9 % (37.5-50.1); Hemoglobin 8.7 g/dL (12.9-16.9); Immature Granulocytes % 0.4 % (0-4); Lymphocytes # 1.9 K/mcL (0.6-4.6); Lymphocytes % 18.8 %; Mean Corpuscular HGB Conc 32.3 g/dL (31.6-35.5); Mean Corpuscular Hemoglobin 28.8 pg (28.0-33.3); Mean Corpuscular Volume 89.1 fL (83.0-100.0); Mean Platelet Volume 11.3 fL (9.4-12.4); Monocytes # 0.8 K/mcL (0.0-1.3); Monocytes % 7.9 %; Neutrophils # 6.3 K/mcL (1.6-8.9); Platelet Count 165 K/mcL (140-400); Red Blood Count 3.02 M/mcL (4.19-5.50); Red Cell Distribution Width 19.1 % (11.5-14.5); Segmented Neutrophils % 61.7 %; White Blood Count 10.2 K/mcL (4.3-11.1)
[2021-02-08 08:01] LABS: Alanine Aminotransferase 12 Units/L (7-52); Albumin 2.3 g/dL (3.5-5.7); Albumin/Globulin Ratio 1.3 (1.1-2.2); Alkaline Phosphatase 52 Units/L (34-104); Aspartate Amino Transferase 36 Units/L (13-39); BUN/Creatinine Ratio 15 (6-26); Bilirubin,Total 0.5 mg/dL (0.3-1.0); Blood Urea Nitrogen 24 mg/dL (8-23); Calcium 7.8 mg/dL (8.6-10.3); Carbon Dioxide 24 mEq/L (23-29); Chloride 110 mEq/L (98-107); Globulin 1.8 g/dL (2.4-3.5); Glucose 58 mg/dL (70-105); Iron 56 mcg/dL (65-175); Magnesium 1.3 mg/dL (1.6-2.6); Osmolality,Calculated 292 (280-300); Phosphorous 2.3 mg/dL (2.7-4.5); Potassium 3.6 mEq/L (3.5-5.1); Sodium 140 mEq/L (136-145); Total Protein 4.1 g/dL (6.4-8.9); eGFR For African Americans 50 (> 60); eGFR For Non-African Americans 41 (> 60)
[2021-02-08 08:12] LABS: Ferritin 436 ng/mL (20-250)
[2021-02-08 08:17] LABS: Folate 4.4 ng/mL (3.0-16.0)
[2021-02-08] MEDS: Dextrose Gel 15 GM/37.5 ML TUBE PO PRN (10:32)
[2021-02-08] MEDS: carvediloL 6.25 MG TABLET PO SCH ×2 (10:32→16:49)
[2021-02-08] MEDS: Lactobacillus 1 EACH CAP.SPRINK PO SCH ×2 (10:33→21:17)
[2021-02-08 12:11] LABS: Transferrin < 75 mg/dL (203-362)
[2021-02-08] MEDS ORDERED: Iron Sucrose Complex 400 MG in 0.9 % Sodium Chloride 250 ML IVPB ONE (13:50)
[2021-02-08] MEDS: Calcium Gluconate 1gm/50mL 1 GM/50 ML BAG IVPB SCH ×2 (15:20→15:21)
[2021-02-08] MEDS: Mirtazapine 15 MG TABLET PO SCH (21:22)
[2021-02-09] MEDS: Piperacillin/Tazobactam 3.375 GM in 0.9 % Sodium Chloride Mini Bag 100 ML IVPB SCH ×3 (00:25→16:38)
[2021-02-09 03:25] LABS: Basophils # 0.1 K/mcL (0.0-0.2); Basophils % 0.7 %; Eosinophils % 12.2 %; Hematocrit 27.8 % (37.5-50.1); Immature Granulocytes % 0.5 % (0-4); Lymphocytes # 1.7 K/mcL (0.6-4.6); Lymphocytes % 20.7 %; Mean Corpuscular HGB Conc 32.4 g/dL (31.6-35.5); Mean Corpuscular Hemoglobin 28.8 pg (28.0-33.3); Mean Corpuscular Volume 89.1 fL (83.0-100.0); Mean Platelet Volume 11.5 fL (9.4-12.4); Monocytes # 0.7 K/mcL (0.0-1.3); Monocytes % 7.9 %; Neutrophils # 4.8 K/mcL (1.6-8.9); Platelet Count 162 K/mcL (140-400); Red Blood Count 3.12 M/mcL (4.19-5.50); Red Cell Distribution Width 18.9 % (11.5-14.5); White Blood Count 8.3 K/mcL (4.3-11.1)
[2021-02-09 03:49] LABS: Alanine Aminotransferase 14 Units/L (7-52); Albumin 2.2 g/dL (3.5-5.7); Albumin/Globulin Ratio 1.2 (1.1-2.2); Alkaline Phosphatase 54 Units/L (34-104); Aspartate Amino Transferase 108 Units/L (13-39); BUN/Creatinine Ratio 15 (6-26); Bilirubin,Total 0.5 mg/dL (0.3-1.0); Blood Urea Nitrogen 20 mg/dL (8-23); Carbon Dioxide 22 mEq/L (23-29); Chloride 111 mEq/L (98-107); Globulin 1.8 g/dL (2.4-3.5); Glucose 80 mg/dL (70-105); Osmolality,Calculated 290 (280-300); Phosphorous 2.1 mg/dL (2.7-4.5); Potassium 4.1 mEq/L (3.5-5.1); Sodium 139 mEq/L (136-145); eGFR For African Americans > 60 (> 60); eGFR For Non-African Americans 52 (> 60)
[2021-02-09] MEDS: *HR* Heparin 5,000 UNIT/ML VIAL SQ SCH ×2 (05:36→16:38)
[2021-02-09] MEDS: carvediloL 6.25 MG TABLET PO SCH ×2 (10:34→16:39)
[2021-02-09] MEDS: Calcium Gluconate 1gm/50mL 1 GM/50 ML BAG IVPB SCH ×2 (10:35→10:36)
[2021-02-09] MEDS: Multivit/Ca/Min/Fe/FA 1 TAB TABLET PO SCH (10:35)
[2021-02-09] MEDS: Lactobacillus 1 EACH CAP.SPRINK PO SCH ×2 (10:35→20:59)
[2021-02-09] MEDS: Mirtazapine 15 MG TABLET PO SCH (20:59)
[2021-02-10] MEDS: Piperacillin/Tazobactam 3.375 GM in 0.9 % Sodium Chloride Mini Bag 100 ML IVPB SCH ×2 (00:01→08:46)
[2021-02-10] MEDS: *HR* Heparin 5,000 UNIT/ML VIAL SQ SCH ×2 (06:15→17:34)
[2021-02-10] MEDS: Dextrose Gel 15 GM/37.5 ML TUBE PO PRN (08:47)
[2021-02-10] MEDS: Lactobacillus 1 EACH CAP.SPRINK PO SCH ×2 (08:47→21:17)
[2021-02-10] MEDS: Megestrol Acetate 400 MG/10 ML UDC PO SCH (08:47)
[2021-02-10] MEDS: carvediloL 6.25 MG TABLET PO SCH ×2 (08:47→17:34)
[2021-02-10] MEDS: Multivit/Ca/Min/Fe/FA 1 TAB TABLET PO SCH (08:47)
[2021-02-10 09:58] LABS: Basophils # 0.1 K/mcL (0.0-0.2); Basophils % 1.1 %; Eosinophils # 0.9 K/mcL (0.0-0.6); Eosinophils % 12.3 %; Hematocrit 27.6 % (37.5-50.1); Hemoglobin 9.4 g/dL (12.9-16.9); Immature Granulocytes % 0.5 % (0-4); Lymphocytes # 2.5 K/mcL (0.6-4.6); Lymphocytes % 32.9 %; Mean Corpuscular HGB Conc 34.1 g/dL (31.6-35.5); Mean Corpuscular Hemoglobin 29.7 pg (28.0-33.3); Mean Corpuscular Volume 87.3 fL (83.0-100.0); Mean Platelet Volume 11.7 fL (9.4-12.4); Monocytes # 0.8 K/mcL (0.0-1.3); Monocytes % 11.1 %; Neutrophils # 3.2 K/mcL (1.6-8.9); Platelet Count 200 K/mcL (140-400); Red Blood Count 3.16 M/mcL (4.19-5.50); Red Cell Distribution Width 19.2 % (11.5-14.5); Segmented Neutrophils % 42.1 %; White Blood Count 7.6 K/mcL (4.3-11.1)
[2021-02-10 10:19] LABS: Alanine Aminotransferase 15 Units/L (7-52); Albumin 2.4 g/dL (3.5-5.7); Albumin/Globulin Ratio 1.2 (1.1-2.2); Alkaline Phosphatase 65 Units/L (34-104); Aspartate Amino Transferase 81 Units/L (13-39); BUN/Creatinine Ratio 13 (6-26); Bilirubin,Total 0.5 mg/dL (0.3-1.0); Blood Urea Nitrogen 15 mg/dL (8-23); Calcium 8.1 mg/dL (8.6-10.3); Carbon Dioxide 24 mEq/L (23-29); Chloride 110 mEq/L (98-107); Glucose 67 mg/dL (70-105); Magnesium 1.7 mg/dL (1.6-2.6); Osmolality,Calculated 293 (280-300); Phosphorous 2.1 mg/dL (2.7-4.5); Potassium 3.6 mEq/L (3.5-5.1); Sodium 142 mEq/L (136-145); Total Protein 4.4 g/dL (6.4-8.9); eGFR For African Americans > 60 (> 60); eGFR For Non-African Americans 58 (> 60)
[2021-02-10] MEDS: Calcium Gluconate 1gm/50mL 1 GM/50 ML BAG IVPB SCH ×2 (12:56→12:57)
[2021-02-10] MEDS: Mirtazapine 15 MG TABLET PO SCH (21:18)
[2021-02-11 03:51] LABS: Hematocrit 28.1 % (37.5-50.1); Hemoglobin 9.2 g/dL (12.9-16.9); Mean Corpuscular HGB Conc 32.7 g/dL (31.6-35.5); Mean Corpuscular Volume 88.6 fL (83.0-100.0); Platelet Count 188 K/mcL (140-400); Red Blood Count 3.17 M/mcL (4.19-5.50); Red Cell Distribution Width 19.2 % (11.5-14.5); White Blood Count 7.1 K/mcL (4.3-11.1)
[2021-02-11 04:10] LABS: BUN/Creatinine Ratio 10 (6-26); Blood Urea Nitrogen 12 mg/dL (8-23); Carbon Dioxide 24 mEq/L (23-29); Chloride 112 mEq/L (98-107); Glucose 79 mg/dL (70-105); Magnesium 1.9 mg/dL (1.6-2.6); Osmolality,Calculated 289 (280-300); Phosphorous 1.9 mg/dL (2.7-4.5); Potassium 4.1 mEq/L (3.5-5.1); Sodium 140 mEq/L (136-145); eGFR For African Americans > 60 (> 60); eGFR For Non-African Americans > 60 (> 60)
[2021-02-11] MEDS: *HR* Heparin 5,000 UNIT/ML VIAL SQ SCH (05:33)
[2021-02-11] MEDS ORDERED: Calcium Gluconate 1gm/50mL 1 GM/50 ML BAG IVPB SCH (08:00)
[2021-02-11] MEDS: carvediloL 6.25 MG TABLET PO SCH ×2 (09:18→09:47)
[2021-02-11] MEDS: levoFLOXacin 750 MG TABLET PO SCH ×2 (09:19→09:44)
[2021-02-11] MEDS: Lactobacillus 1 EACH CAP.SPRINK PO SCH ×2 (09:19→09:43)
[2021-02-11] MEDS: metroNIDAZOLE 500 MG TABLET PO SCH ×3 (09:19→14:16)
[2021-02-11] MEDS: Megestrol Acetate 400 MG/10 ML UDC PO SCH (09:19)
[2021-02-11] MEDS: Multivit/Ca/Min/Fe/FA 1 TAB TABLET PO SCH ×2 (09:20→09:45)
[2021-02-11 11:55] VITALS: BP 151/72; PULSE 75; TEMP 98.3; O2SAT 93
== END 2021-02-11 16:37 | disposition home health service (06) | DRG 391 ==
LOC: EMEROOARM 22:22 → CDU 22:22 → SUATTDRO 02-06 05:36 → CDU 02-06 06:12 → 3ANU 02-06 19:11
PROVIDERS: ADMIT Family Medicine; ATTEND Internal Medicine

== ENCOUNTER 2021-03-01 03:45 | Observation (INO) ==
[2021-03-01] MEDS ORDERED: 0.9 % Sodium Chloride 1,000 ML IVC ONE (04:15)
[2021-03-01 05:07] LABS: Basophils # 0.2 K/mcL (0.0-0.2); Basophils % 1.2 %; Eosinophils # 0.3 K/mcL (0.0-0.6); Eosinophils % 2.3 %; Hematocrit 32.2 % (37.5-50.1); Hemoglobin 10.2 g/dL (12.9-16.9); Immature Granulocytes % 0.9 % (0-4); Lymphocytes # 2.9 K/mcL (0.6-4.6); Lymphocytes % 21.5 %; Mean Corpuscular HGB Conc 31.7 g/dL (31.6-35.5); Mean Corpuscular Hemoglobin 30.3 pg (28.0-33.3); Mean Corpuscular Volume 95.5 fL (83.0-100.0); Mean Platelet Volume 11.7 fL (9.4-12.4); Monocytes # 1.4 K/mcL (0.0-1.3); Neutrophils # 8.7 K/mcL (1.6-8.9); Platelet Count 464 K/mcL (140-400); Red Blood Count 3.37 M/mcL (4.19-5.50); Red Cell Distribution Width 22.2 % (11.5-14.5); Segmented Neutrophils % 64.1 %; White Blood Count 13.5 K/mcL (4.3-11.1)
[2021-03-01 05:08] LABS: BUN/Creatinine Ratio 18 (6-26); Blood Urea Nitrogen 24 mg/dL (8-23); Calcium 8.2 mg/dL (8.6-10.3); Carbon Dioxide 24 mEq/L (23-29); Chloride 109 mEq/L (98-107); Glucose 88 mg/dL (70-105); Osmolality,Calculated 293 (280-300); Potassium 4.4 mEq/L (3.5-5.1); Sodium 140 mEq/L (136-145); eGFR For African Americans > 60 (> 60); eGFR For Non-African Americans 52 (> 60)
[2021-03-01 05:09] LABS: Troponin I 0.03 ng/mL (< 0.04)
[2021-03-01 05:24] LABS: INR 0.9; Prothrombin Time 10.8 Seconds (9.4-12.1)
[2021-03-01 05:27] LABS: Activated Partial Thrombo Time 26.5 Seconds (26.0-36.0)
[2021-03-01] MEDS ORDERED: Isovue-370 500 ML BOTTLE IVP ONE (06:29)
[2021-03-01] MEDS ORDERED: Furosemide 40 MG/4 ML VIAL IVP ONE (06:30)
[2021-03-01] MEDS ORDERED: cefTRIAXone 1,000 MG in 0.9 % Sodium Chloride Mini Bag 100 ML IVPB ONE (07:02)
[2021-03-01] MEDS ORDERED: Perflutren Lipid Microsphere 1.3 ML in 0.9 % Sodium Chloride 8.7 ML IVP PRN (08:00)
[2021-03-01] MEDS ORDERED: Naloxone 0.4 MG/ML INJ IVP PRN (08:15)
[2021-03-01] MEDS ORDERED: Ondansetron 4 MG/2 ML VIAL IVP PRN (08:15)
[2021-03-01] MEDS ORDERED: Acetaminophen 325 MG TABLET PO PRN (08:15)
[2021-03-01] MEDS ORDERED: Melatonin 3 MG TABLET PO PRN (08:15)
[2021-03-01 08:43] LABS: Adenovirus Not Detected (Not Detect); Bordetella Pertussis Not Detected (Not Detect); Chlamydophila pneumoniae Not Detected (Not Detect); Coronavirus 229E Not Detected (Not Detect); Coronavirus HKU1 Not Detected (Not Detect); Coronavirus NL63 Not Detected (Not Detect); Coronavirus OC43 Not Detected (Not Detect); Human Metapneumovirus Not Detected (Not Detect); Human Rhinovirus/Enterovirus Not Detected (Not Detect); Influenza A Subtype 2009 H1 Not Detected (Not Detect); Influenza B Not Detected (Not Detect); Mycoplasma pneumoniae Not Detected (Not Detect); Parainfluenza Virus 1 Not Detected (Not Detect); Parainfluenza Virus 2 Not Detected (Not Detect); Parainfluenza Virus 3 Not Detected (Not Detect); Parainfluenza Virus 4 Not Detected (Not Detect); Respiratory Syncytial Virus Not Detected (Not Detect); SARS-CoV-2 Not Detected (Not Detect)
[2021-03-01] MEDS: carvediloL 6.25 MG TABLET PO SCH ×2 (09:36→21:49)
[2021-03-01] MEDS: Lactobacillus 1 EACH CAP.SPRINK PO SCH ×2 (09:37→21:49)
[2021-03-01] MEDS: Megestrol Acetate 400 MG/10 ML UDC PO SCH (09:37)
[2021-03-01] MEDS: *HR* Heparin 5,000 UNIT/ML VIAL SQ SCH ×2 (15:28→21:50)
[2021-03-01] MEDS: Furosemide 40 MG/4 ML VIAL IVP SCH (16:29)
[2021-03-01] MEDS ORDERED: Mirtazapine 15 MG TABLET PO SCH (21:00)
[2021-03-02 03:37] LABS: Hemoglobin 8.8 g/dL (12.9-16.9); Mean Corpuscular HGB Conc 33.8 g/dL (31.6-35.5); Mean Corpuscular Hemoglobin 31.9 pg (28.0-33.3); Mean Corpuscular Volume 94.2 fL (83.0-100.0); Platelet Count 348 K/mcL (140-400); Red Blood Count 2.76 M/mcL (4.19-5.50); White Blood Count 8.5 K/mcL (4.3-11.1)
[2021-03-02 04:03] LABS: BUN/Creatinine Ratio 18 (6-26); Blood Urea Nitrogen 22 mg/dL (8-23); Calcium 7.7 mg/dL (8.6-10.3); Carbon Dioxide 25 mEq/L (23-29); Chloride 108 mEq/L (98-107); Glucose 77 mg/dL (70-105); Magnesium 1.8 mg/dL (1.6-2.6); Osmolality,Calculated 292 (280-300); Sodium 140 mEq/L (136-145); Troponin I 0.03 ng/mL (< 0.04); eGFR For African Americans > 60 (> 60); eGFR For Non-African Americans 59 (> 60)
[2021-03-02] MEDS: *HR* Heparin 5,000 UNIT/ML VIAL SQ SCH (05:47)
[2021-03-02 08:50] VITALS: BP 151/70; PULSE 81; TEMP 97.8; O2SAT 93
[2021-03-02] MEDS: Furosemide 40 MG/4 ML VIAL IVP SCH (08:52)
[2021-03-02] MEDS: Lactobacillus 1 EACH CAP.SPRINK PO SCH (08:52)
[2021-03-02] MEDS: carvediloL 6.25 MG TABLET PO SCH (08:53)
[2021-03-02] MEDS: Megestrol Acetate 400 MG/10 ML UDC PO SCH (08:53)
== END 2021-03-02 13:26 | disposition home or self-care (01) ==
LOC: 2ANU 03:45 → EMEROOARM 03:45 → 2ANU 12:25
PROVIDERS: ADMIT Internal Medicine; ATTEND Internal Medicine

== ENCOUNTER 2021-03-09 07:39 | Inpatient (IN) ==
[2021-03-09] MEDS ORDERED: Ipratropium/Albuterol Neb 3 ML IH ONE (07:55)
[2021-03-09] MEDS ORDERED: methylPREDNISolone 125 MG/2 ML VIAL IVP ONE (07:55)
[2021-03-09] MEDS ORDERED: carvediloL 6.25 MG TABLET PO STA (09:05)
[2021-03-09] MEDS ORDERED: cefTRIAXone 1,000 MG in 0.9 % Sodium Chloride Mini Bag 100 ML IVPB ONE (09:08)
[2021-03-09] MEDS ORDERED: Azithromycin 500 MG in 0.9 % Sodium Chloride 250 ML IVPB ONE (09:09)
[2021-03-09 09:26] LABS: Basophils # 0.1 K/mcL (0.0-0.2); Basophils % 0.7 %; Eosinophils # 0.3 K/mcL (0.0-0.6); Eosinophils % 2.1 %; Hematocrit 32.5 % (37.5-50.1); Hemoglobin 10.4 g/dL (12.9-16.9); Immature Granulocytes % 0.5 % (0-4); Lymphocytes # 2.9 K/mcL (0.6-4.6); Lymphocytes % 22.3 %; Mean Corpuscular Hemoglobin 31.9 pg (28.0-33.3); Mean Corpuscular Volume 99.7 fL (83.0-100.0); Mean Platelet Volume 12.6 fL (9.4-12.4); Monocytes # 1.2 K/mcL (0.0-1.3); Monocytes % 9.2 %; Neutrophils # 8.3 K/mcL (1.6-8.9); Platelet Count 309 K/mcL (140-400); Red Blood Count 3.26 M/mcL (4.19-5.50); Segmented Neutrophils % 65.2 %; White Blood Count 12.8 K/mcL (4.3-11.1)
[2021-03-09 09:44] LABS: Calcium 8.3 mg/dL (8.6-10.3); Troponin I 0.03 ng/mL (< 0.04)
[2021-03-09 10:15] LABS: Adenovirus Not Detected (Not Detect); Bordetella Pertussis Not Detected (Not Detect); Chlamydophila pneumoniae Not Detected (Not Detect); Coronavirus 229E Not Detected (Not Detect); Coronavirus HKU1 Not Detected (Not Detect); Coronavirus NL63 Not Detected (Not Detect); Coronavirus OC43 Not Detected (Not Detect); Human Metapneumovirus Not Detected (Not Detect); Human Rhinovirus/Enterovirus Not Detected (Not Detect); Influenza A Subtype 2009 H1 Not Detected (Not Detect); Influenza B Not Detected (Not Detect); Mycoplasma pneumoniae Not Detected (Not Detect); Parainfluenza Virus 1 Not Detected (Not Detect); Parainfluenza Virus 2 Not Detected (Not Detect); Parainfluenza Virus 3 Not Detected (Not Detect); Parainfluenza Virus 4 Not Detected (Not Detect); Respiratory Syncytial Virus Not Detected (Not Detect); SARS-CoV-2 Not Detected (Not Detect)
[2021-03-09] MEDS ORDERED: Furosemide 20 MG/2 ML VIAL IVP ONE (10:56)
[2021-03-09] MEDS ORDERED: Melatonin 3 MG TABLET PO PRN (12:23)
[2021-03-09] MEDS ORDERED: Ondansetron 4 MG/2 ML VIAL IVP PRN (12:23)
[2021-03-09] MEDS ORDERED: Naloxone 0.4 MG/ML INJ IVP PRN (12:23)
[2021-03-09] MEDS ORDERED: Benzonatate 100 MG CAPSULE PO PRN (12:40)
[2021-03-09] MEDS ORDERED: Perflutren Lipid Microsphere 1.3 ML in 0.9 % Sodium Chloride 8.7 ML IVP PRN (12:43)
[2021-03-09] MEDS: *HR* Heparin 5,000 UNIT/ML VIAL SQ SCH ×2 (15:30→22:47)
[2021-03-09] MEDS: Ipratropium/Albuterol Neb 3 ML IH SCH ×2 (16:20→22:45)
[2021-03-09] MEDS: carvediloL 6.25 MG TABLET PO SCH (16:23)
[2021-03-09] MEDS: Furosemide 40 MG/4 ML VIAL IVP SCH (16:23)
[2021-03-09] MEDS: Mirtazapine 15 MG TABLET PO SCH (22:46)
[2021-03-10] MEDS: Ipratropium/Albuterol Neb 3 ML IH SCH ×4 (03:54→21:15)
[2021-03-10 05:46] LABS: Basophils % 0.1 %; Hematocrit 28.4 % (37.5-50.1); Hemoglobin 9.1 g/dL (12.9-16.9); Immature Granulocytes % 0.8 % (0-4); Lymphocytes # 1.1 K/mcL (0.6-4.6); Lymphocytes % 14.8 %; Mean Corpuscular Hemoglobin 31.3 pg (28.0-33.3); Mean Corpuscular Volume 97.6 fL (83.0-100.0); Mean Platelet Volume 12.4 fL (9.4-12.4); Monocytes # 0.9 K/mcL (0.0-1.3); Monocytes % 11.5 %; Neutrophils # 5.6 K/mcL (1.6-8.9); Platelet Count 240 K/mcL (140-400); Red Blood Count 2.91 M/mcL (4.19-5.50); Red Cell Distribution Width 20.7 % (11.5-14.5); Segmented Neutrophils % 72.8 %; White Blood Count 7.6 K/mcL (4.3-11.1)
[2021-03-10 06:04] LABS: BUN/Creatinine Ratio 22 (6-26); Blood Urea Nitrogen 30 mg/dL (8-23); Calcium 8.2 mg/dL (8.6-10.3); Carbon Dioxide 31 mEq/L (23-29); Chloride 102 mEq/L (98-107); Glucose 119 mg/dL (70-105); Magnesium 1.8 mg/dL (1.6-2.6); Osmolality,Calculated 297 (280-300); Potassium 3.9 mEq/L (3.5-5.1); Sodium 140 mEq/L (136-145); eGFR For African Americans > 60 (> 60); eGFR For Non-African Americans 51 (> 60)
[2021-03-10] MEDS: *HR* Heparin 5,000 UNIT/ML VIAL SQ SCH ×3 (06:26→22:58)
[2021-03-10] MEDS: Furosemide 40 MG/4 ML VIAL IVP SCH ×2 (10:42→17:17)
[2021-03-10] MEDS: carvediloL 6.25 MG TABLET PO SCH ×2 (10:43→17:18)
[2021-03-10] MEDS: predniSONE 20 MG TABLET PO SCH (10:43)
[2021-03-10] MEDS: Azithromycin 500 MG in 0.9 % Sodium Chloride 250 ML IVPB SCH (10:43)
[2021-03-10] MEDS: Ascorbic Acid 500 MG TABLET PO SCH (10:44)
[2021-03-10] MEDS: Aspirin Enteric Coated 81 MG Tablet PO SCH (10:44)
[2021-03-10] MEDS: Cholecalciferol (D-3) 1,000 UNIT (25MCG) TABLET PO SCH (10:44)
[2021-03-10] MEDS: Mirtazapine 15 MG TABLET PO SCH (23:02)
[2021-03-11] MEDS: Ipratropium/Albuterol Neb 3 ML IH SCH ×4 (04:08→20:57)
[2021-03-11] MEDS: *HR* Heparin 5,000 UNIT/ML VIAL SQ SCH ×3 (05:23→20:16)
[2021-03-11] MEDS: Aspirin Enteric Coated 81 MG Tablet PO SCH (10:11)
[2021-03-11] MEDS: predniSONE 20 MG TABLET PO SCH (10:11)
[2021-03-11] MEDS: Furosemide 40 MG/4 ML VIAL IVP SCH ×2 (10:11→16:35)
[2021-03-11] MEDS: Ascorbic Acid 500 MG TABLET PO SCH (10:11)
[2021-03-11] MEDS: Cholecalciferol (D-3) 1,000 UNIT (25MCG) TABLET PO SCH (10:11)
[2021-03-11] MEDS: carvediloL 6.25 MG TABLET PO SCH ×2 (10:14→16:34)
[2021-03-11] MEDS: Azithromycin 500 MG in 0.9 % Sodium Chloride 250 ML IVPB SCH (10:16)
[2021-03-11] MEDS: Mirtazapine 15 MG TABLET PO SCH (20:14)
[2021-03-12] MEDS: Ipratropium/Albuterol Neb 3 ML IH SCH ×4 (03:06→21:05)
[2021-03-12] MEDS: *HR* Heparin 5,000 UNIT/ML VIAL SQ SCH ×3 (05:26→20:55)
[2021-03-12 07:01] LABS: Basophils % 0.1 %; Hemoglobin 9.4 g/dL (12.9-16.9); Immature Granulocytes % 0.3 % (0-4); Lymphocytes # 1.1 K/mcL (0.6-4.6); Lymphocytes % 12.4 %; Mean Corpuscular HGB Conc 32.4 g/dL (31.6-35.5); Mean Corpuscular Hemoglobin 32.1 pg (28.0-33.3); Mean Platelet Volume 12.1 fL (9.4-12.4); Monocytes # 0.9 K/mcL (0.0-1.3); Monocytes % 10.6 %; Neutrophils # 6.8 K/mcL (1.6-8.9); Platelet Count 236 K/mcL (140-400); Red Blood Count 2.93 M/mcL (4.19-5.50); Red Cell Distribution Width 19.7 % (11.5-14.5); Segmented Neutrophils % 76.6 %; White Blood Count 8.9 K/mcL (4.3-11.1)
[2021-03-12 07:39] LABS: BUN/Creatinine Ratio 35 (6-26); Blood Urea Nitrogen 47 mg/dL (8-23); Calcium 8.1 mg/dL (8.6-10.3); Carbon Dioxide 32 mEq/L (23-29); Chloride 101 mEq/L (98-107); Glucose 104 mg/dL (70-105); Osmolality,Calculated 305 (280-300); Potassium 3.4 mEq/L (3.5-5.1); Sodium 141 mEq/L (136-145); eGFR For African Americans > 60 (> 60); eGFR For Non-African Americans 50 (> 60)
[2021-03-12] MEDS: Ascorbic Acid 500 MG TABLET PO SCH (09:08)
[2021-03-12] MEDS: Cholecalciferol (D-3) 1,000 UNIT (25MCG) TABLET PO SCH (09:08)
[2021-03-12] MEDS: predniSONE 20 MG TABLET PO SCH (09:08)
[2021-03-12] MEDS: Aspirin Enteric Coated 81 MG Tablet PO SCH (09:08)
[2021-03-12] MEDS: carvediloL 6.25 MG TABLET PO SCH ×2 (09:09→17:54)
[2021-03-12] MEDS: Furosemide 40 MG/4 ML VIAL IVP SCH ×2 (09:13→17:54)
[2021-03-12] MEDS: amLODIPine 5 MG TABLET PO SCH (12:41)
[2021-03-12] MEDS: Mirtazapine 15 MG TABLET PO SCH (20:54)
[2021-03-13 03:48] LABS: Basophils % 0.1 %; Hemoglobin 9.2 g/dL (12.9-16.9); Immature Granulocytes % 0.8 % (0-4); Lymphocytes # 1.1 K/mcL (0.6-4.6); Lymphocytes % 12.3 %; Mean Corpuscular HGB Conc 32.9 g/dL (31.6-35.5); Mean Corpuscular Hemoglobin 32.4 pg (28.0-33.3); Mean Corpuscular Volume 98.6 fL (83.0-100.0); Mean Platelet Volume 12.5 fL (9.4-12.4); Monocytes # 0.9 K/mcL (0.0-1.3); Monocytes % 10.3 %; Neutrophils # 6.7 K/mcL (1.6-8.9); Platelet Count 239 K/mcL (140-400); Red Blood Count 2.84 M/mcL (4.19-5.50); Red Cell Distribution Width 19.8 % (11.5-14.5); Segmented Neutrophils % 76.5 %; White Blood Count 8.7 K/mcL (4.3-11.1)
[2021-03-13 04:09] LABS: BUN/Creatinine Ratio 37 (6-26); Blood Urea Nitrogen 50 mg/dL (8-23); Carbon Dioxide 33 mEq/L (23-29); Chloride 100 mEq/L (98-107); Glucose 124 mg/dL (70-105); Osmolality,Calculated 309 (280-300); Potassium 3.4 mEq/L (3.5-5.1); Sodium 142 mEq/L (136-145); eGFR For African Americans > 60 (> 60); eGFR For Non-African Americans 51 (> 60)
[2021-03-13] MEDS: Ipratropium/Albuterol Neb 3 ML IH SCH ×4 (04:12→19:53)
[2021-03-13] MEDS: *HR* Heparin 5,000 UNIT/ML VIAL SQ SCH (05:53)
[2021-03-13] MEDS: amLODIPine 5 MG TABLET PO SCH (07:42)
[2021-03-13] MEDS: Aspirin Enteric Coated 81 MG Tablet PO SCH (07:42)
[2021-03-13] MEDS: Cholecalciferol (D-3) 1,000 UNIT (25MCG) TABLET PO SCH (07:42)
[2021-03-13] MEDS: carvediloL 6.25 MG TABLET PO SCH ×2 (07:42→17:26)
[2021-03-13] MEDS: Ascorbic Acid 500 MG TABLET PO SCH (07:43)
[2021-03-13] MEDS: predniSONE 20 MG TABLET PO SCH (07:43)
[2021-03-13] MEDS: Furosemide 40 MG/4 ML VIAL IVP SCH ×2 (07:44→17:27)
[2021-03-13 09:55] LABS: Prothrombin Time 11.7 Seconds (9.4-12.1)
[2021-03-13] MEDS ORDERED: Azithromycin 250 MG TABLET PO SCH (11:00)
[2021-03-13 17:44] LABS: Lactate Dehydrogenase 202 Units/L (140-271); Total Protein 5.4 g/dL (6.4-8.9)
[2021-03-13] MEDS: Budesonide/Formoterol 160/4.5 1 PUFF INH IH SCH (19:54)
[2021-03-13] MEDS: Mirtazapine 15 MG TABLET PO SCH (20:41)
[2021-03-14] MEDS: Ipratropium/Albuterol Neb 3 ML IH SCH ×2 (04:49→10:42)
[2021-03-14 05:19] LABS: Basophils % 0.2 %; Hematocrit 29.9 % (37.5-50.1); Hemoglobin 9.4 g/dL (12.9-16.9); Immature Granulocytes % 1.1 % (0-4); Lymphocytes # 1.3 K/mcL (0.6-4.6); Lymphocytes % 12.8 %; Mean Corpuscular HGB Conc 31.4 g/dL (31.6-35.5); Mean Corpuscular Hemoglobin 31.8 pg (28.0-33.3); Mean Platelet Volume 12.3 fL (9.4-12.4); Monocytes # 1.1 K/mcL (0.0-1.3); Monocytes % 10.7 %; Neutrophils # 7.8 K/mcL (1.6-8.9); Platelet Count 237 K/mcL (140-400); Red Blood Count 2.96 M/mcL (4.19-5.50); Red Cell Distribution Width 19.5 % (11.5-14.5); Segmented Neutrophils % 75.2 %; White Blood Count 10.3 K/mcL (4.3-11.1)
[2021-03-14 05:57] LABS: Calcium 7.8 mg/dL (8.6-10.3); Potassium 3.6 mEq/L (3.5-5.1)
[2021-03-14] MEDS: Ascorbic Acid 500 MG TABLET PO SCH (07:37)
[2021-03-14] MEDS: Aspirin Enteric Coated 81 MG Tablet PO SCH (07:37)
[2021-03-14] MEDS: Furosemide 40 MG/4 ML VIAL IVP SCH (07:37)
[2021-03-14] MEDS: carvediloL 6.25 MG TABLET PO SCH (07:37)
[2021-03-14] MEDS: amLODIPine 5 MG TABLET PO SCH (07:37)
[2021-03-14] MEDS: Cholecalciferol (D-3) 1,000 UNIT (25MCG) TABLET PO SCH (07:37)
[2021-03-14] MEDS ORDERED: Furosemide 40 MG TABLET PO SCH (08:30)
[2021-03-14] MEDS ORDERED: predniSONE 20 MG TABLET PO SCH (09:00)
[2021-03-14 10:00] VITALS: BP 167/71; PULSE 71; TEMP 97.7
[2021-03-14 10:19] LABS: RBC,Pleural Fluid < 2000 RBC/mcL
[2021-03-14] MEDS: Budesonide/Formoterol 160/4.5 1 PUFF INH IH SCH (10:43)
[2021-03-14 10:54] LABS: Appearance of Pleural Fl Clear (Clear); Basophils,Pleural Fluid 0 %; Eosinophils,Pleural Fluid 0 %
[2021-03-14 11:21] LABS: Glucose,Pleural Fluid 129 mg/dL (No Ref Range); LDH,Pleural Fluid 61 Units/L (No Ref Range); Total Protein,Pleural Fluid < 2.0 g/dL
[2021-03-14 17:32] VITALS: O2SAT 93
[2021-03-15 21:47] LABS: Fluid Source for Cholesterol PLEURAL FLUID
[2021-03-16 09:20] LABS: Cholesterol,Body Fluid 24 mg/dL
== END 2021-03-14 12:15 | disposition home or self-care (01) | DRG 291 ==
LOC: EMEROOARM 07:39 → 2NENU 07:39 → SUATTDRO 03-11 18:51 → 3ANU 03-13 22:59
PROVIDERS: ADMIT Family Medicine; ATTEND Internal Medicine

== ENCOUNTER 2021-12-03 10:27 | Observation (INO) ==
[2021-12-03 11:00] LABS: Basophils # 0.1 K/mcL (0.0-0.2); Basophils % 0.7 %; Eosinophils # 0.2 K/mcL (0.0-0.6); Eosinophils % 2.1 %; Hematocrit 37.6 % (37.5-50.1); Hemoglobin 12.3 g/dL (12.9-16.9); Immature Granulocytes % 0.5 % (0-4); Lymphocytes # 2.3 K/mcL (0.6-4.6); Lymphocytes % 24.2 %; Mean Corpuscular HGB Conc 32.7 g/dL (31.6-35.5); Mean Corpuscular Volume 94.7 fL (83.0-100.0); Monocytes % 10.1 %; Neutrophils # 5.9 K/mcL (1.6-8.9); Platelet Count 334 K/mcL (140-400); Red Blood Count 3.97 M/mcL (4.19-5.50); Red Cell Distribution Width 15.2 % (11.5-14.5); Segmented Neutrophils % 62.4 %; White Blood Count 9.4 K/mcL (4.3-11.1)
[2021-12-03] MEDS ORDERED: Isovue-370 500 ML BOTTLE IVP ONE (11:02)
[2021-12-03 11:07] LABS: INR 1.1; Prothrombin Time 11.9 Seconds (9.4-12.1)
[2021-12-03 11:10] LABS: Activated Partial Thrombo Time 26.5 Seconds (26.0-36.0)
[2021-12-03 11:39] LABS: Calcium 9.3 mg/dL (8.6-10.3); Potassium 2.9 mEq/L (3.5-5.1); Troponin I 0.05 ng/mL (< 0.04)
[2021-12-03 11:53] LABS: Influenza A PCR Negative (Negative); Influenza B PCR Negative (Negative); Resp. Syncytial Virus PCR Negative (Negative)
[2021-12-03] MEDS ORDERED: Naloxone 0.4 MG/ML INJ IVP PRN (11:57)
[2021-12-03] MEDS ORDERED: Perflutren Lipid Microsphere 1.3 ML in 0.9 % Sodium Chloride 8.7 ML IVP PRN (12:15)
[2021-12-03] MEDS: 0.9 % Sodium Chloride 1,000 ML IVC SCH (12:30)
[2021-12-03] MEDS ORDERED: Aspirin Enteric Coated 325 MG Tablet PO SCH (12:30)
[2021-12-03 12:38] LABS: Chol/HDL Ratio 2.9 (0-4.9); Uric Acid 12.4 mg/dL (2.3-7.6)
[2021-12-03 13:27] LABS: SARS-CoV-2 by PCR (In House) Negative (Negative)
[2021-12-03 13:32] LABS: Estimated Average Glucose 117 mg/dl; Hemoglobin A1C 5.7 %
[2021-12-03 14:35] LABS: Magnesium 2.5 mg/dL (1.6-2.6); Phosphorous 3.7 mg/dL (2.7-4.5)
[2021-12-03] MEDS ORDERED: Nitroglycerin 0.4 MG TAB.SUBL SL PRN (14:47)
[2021-12-03] MEDS: carvediloL 6.25 MG TABLET PO ONE ×2 (14:57→15:14)
[2021-12-03] MEDS: *HR* Heparin 5,000 UNIT/ML VIAL SQ SCH ×2 (14:59→21:48)
[2021-12-03] MEDS: Ipratropium/Albuterol Neb 3 ML IH SCH ×2 (15:51→20:30)
[2021-12-03 16:54] LABS: Calcium 8.7 mg/dL (8.6-10.3); Potassium 3.1 mEq/L (3.5-5.1)
[2021-12-03 19:24] LABS: Bilirubin,Urine Negative (Negative); Blood,Urine Negative (Negative); Clarity,Urine Clear (Clear); Color,Urine Light-Yellow (Yellow); Glucose,Urine (UA) Normal (Normal); Ketones,Urine Negative (Negative); Leukocyte Esterase,Urine Negative (Negative); Nitrite,Urine Negative (Negative); Protein,Urine Trace mg/dL (Neg-Trace); Specific Gravity,Urine 1.014 (1.010-1.025); Urobilinogen,Urine Normal (Normal)
[2021-12-03 19:32] LABS: Protein/Creatinine Ratio,Urine 0.2 mg/mg (0.00-0.20); Sodium, Urine 39.7 mEq/L
[2021-12-03] MEDS: carvediloL 25 MG TABLET PO SCH (21:47)
[2021-12-04 02:35] LABS: Hematocrit 36.8 % (37.5-50.1); Hemoglobin 11.9 g/dL (12.9-16.9); Mean Corpuscular HGB Conc 32.3 g/dL (31.6-35.5); Mean Corpuscular Hemoglobin 30.3 pg (28.0-33.3); Mean Corpuscular Volume 93.6 fL (83.0-100.0); Mean Platelet Volume 11.3 fL (9.4-12.4); Platelet Count 303 K/mcL (140-400); Red Blood Count 3.93 M/mcL (4.19-5.50); Red Cell Distribution Width 15.1 % (11.5-14.5); White Blood Count 9.3 K/mcL (4.3-11.1)
[2021-12-04 02:59] LABS: Calcium 8.8 mg/dL (8.6-10.3); Magnesium 2.3 mg/dL (1.6-2.6); Phosphorous 3.2 mg/dL (2.7-4.5)
[2021-12-04] MEDS: Ipratropium/Albuterol Neb 3 ML IH SCH ×4 (03:57→22:39)
[2021-12-04] MEDS: *HR* Heparin 5,000 UNIT/ML VIAL SQ SCH ×3 (05:29→20:45)
[2021-12-04] MEDS: Sennosides 8.6 MG TABLET PO SCH (08:53)
[2021-12-04] MEDS: carvediloL 25 MG TABLET PO SCH ×2 (08:53→16:45)
[2021-12-04] MEDS: Aspirin Enteric Coated 81 MG Tablet PO SCH (08:53)
[2021-12-04] MEDS: Torsemide 20 MG TABLET PO SCH ×2 (08:54→16:44)
[2021-12-04] MEDS: Megestrol Acetate 400 MG/10 ML UDC PO SCH (08:54)
[2021-12-04] MEDS ORDERED: amLODIPine 5 MG TABLET PO SCH (14:30)
[2021-12-04] MEDS: 0.9 % Sodium Chloride 1,000 ML IVC SCH (20:24)
[2021-12-04] MEDS ORDERED: Mirtazapine 15 MG TABLET PO SCH (21:00)
[2021-12-05 03:27] LABS: Hemoglobin 10.9 g/dL (12.9-16.9); Mean Corpuscular HGB Conc 32.1 g/dL (31.6-35.5); Mean Corpuscular Hemoglobin 30.1 pg (28.0-33.3); Mean Corpuscular Volume 93.9 fL (83.0-100.0); Mean Platelet Volume 11.2 fL (9.4-12.4); Platelet Count 288 K/mcL (140-400); Red Blood Count 3.62 M/mcL (4.19-5.50); Red Cell Distribution Width 15.3 % (11.5-14.5); White Blood Count 10.2 K/mcL (4.3-11.1)
[2021-12-05 03:41] LABS: Calcium 8.6 mg/dL (8.6-10.3); Magnesium 2.2 mg/dL (1.6-2.6); Phosphorous 3.1 mg/dL (2.7-4.5); Potassium 3.3 mEq/L (3.5-5.1)
[2021-12-05] MEDS: Ipratropium/Albuterol Neb 3 ML IH SCH ×2 (04:13→11:09)
[2021-12-05 04:48] VITALS: O2SAT 95
[2021-12-05] MEDS: *HR* Heparin 5,000 UNIT/ML VIAL SQ SCH ×2 (05:59→11:54)
[2021-12-05 06:57] VITALS: TEMP 97.4
[2021-12-05] MEDS ORDERED: amLODIPine 5 MG TABLET PO SCH (09:00)
[2021-12-05] MEDS: Aspirin Enteric Coated 81 MG Tablet PO SCH (09:51)
[2021-12-05] MEDS: Sennosides 8.6 MG TABLET PO SCH (09:51)
[2021-12-05] MEDS: Megestrol Acetate 400 MG/10 ML UDC PO SCH (09:52)
[2021-12-05] MEDS: 0.9 % Sodium Chloride 1,000 ML IVC SCH (09:52)
[2021-12-05] MEDS: Torsemide 20 MG TABLET PO SCH (09:56)
[2021-12-05] MEDS: carvediloL 25 MG TABLET PO SCH (09:56)
[2021-12-05 09:58] VITALS: BP 113/76; PULSE 75
[2021-12-05] MEDS ORDERED: carvediloL 6.25 MG TABLET PO SCH (17:00)
== END 2021-12-05 13:17 | disposition home or self-care (01) ==
LOC: 2ANU 10:27 → EMEROOARM 10:27 → 2ANU 13:09
PROVIDERS: ADMIT Student in an Organized Health Care Education/Training Program; ATTEND Student in an Organized Health Care Education/Training Program

== ENCOUNTER 2021-12-23 19:40 | Observation (INO) ==
[2021-12-23] MEDS ORDERED: 0.9 % Sodium Chloride 1,000 ML IVC ONE (20:17)
[2021-12-23 21:30] LABS: Albumin/Globulin Ratio 1.2 (1.1-2.2); Bilirubin,Total 0.7 mg/dL (0.3-1.0); Calcium 9.3 mg/dL (8.6-10.3); Globulin 3.3 g/dL (2.4-3.5); Potassium 4.1 mEq/L (3.5-5.1); Total Protein 7.3 g/dL (6.4-8.9); Troponin I 0.04 ng/mL (< 0.04)
[2021-12-23 21:35] LABS: Thyroid Stimulating Hormone 2.506 mcIU/mL (0.340-5.600)
[2021-12-23 21:38] LABS: Influenza A PCR Negative (Negative); Influenza B PCR Negative (Negative); Resp. Syncytial Virus PCR Negative (Negative)
[2021-12-23 21:39] LABS: SARS-CoV-2 by PCR (In House) Negative (Negative)
[2021-12-23 21:56] LABS: Basophils # 0.1 K/mcL (0.0-0.2); Basophils % 1.1 %; Eosinophils # 0.5 K/mcL (0.0-0.6); Eosinophils % 8.3 %; Hematocrit 34.3 % (37.5-50.1); Hemoglobin 10.9 g/dL (12.9-16.9); Immature Granulocytes % 0.6 % (0-4); Lymphocytes # 1.6 K/mcL (0.6-4.6); Lymphocytes % 24.2 %; Mean Corpuscular HGB Conc 31.8 g/dL (31.6-35.5); Mean Corpuscular Hemoglobin 29.1 pg (28.0-33.3); Mean Corpuscular Volume 91.7 fL (83.0-100.0); Mean Platelet Volume 10.5 fL (9.4-12.4); Neutrophils # 3.3 K/mcL (1.6-8.9); Platelet Count 268 K/mcL (140-400); Red Blood Count 3.74 M/mcL (4.19-5.50); Red Cell Distribution Width 15.1 % (11.5-14.5); Segmented Neutrophils % 50.8 %; White Blood Count 6.5 K/mcL (4.3-11.1)
[2021-12-23 22:25] LABS: Bilirubin,Urine Negative (Negative); Blood,Urine Negative (Negative); Clarity,Urine Clear (Clear); Color,Urine Yellow (Yellow); Glucose,Urine (UA) Normal (Normal); Ketones,Urine Negative (Negative); Leukocyte Esterase,Urine Negative (Negative); Nitrite,Urine Negative (Negative); Protein,Urine Negative (Neg-Trace); Specific Gravity,Urine 1.013 (1.010-1.025); Urobilinogen,Urine Normal (Normal)
[2021-12-23] MEDS ORDERED: Naloxone 0.4 MG/ML INJ IVP PRN (22:57)
[2021-12-23] MEDS ORDERED: Ondansetron 4 MG/2 ML VIAL IVP PRN (22:57)
[2021-12-23] MEDS ORDERED: 0.9 % Sodium Chloride 1,000 ML IVC SCH (23:00)
[2021-12-24 01:51] LABS: Hematocrit 32.4 % (37.5-50.1); Hemoglobin 10.4 g/dL (12.9-16.9); Mean Corpuscular HGB Conc 32.1 g/dL (31.6-35.5); Mean Corpuscular Hemoglobin 29.5 pg (28.0-33.3); Mean Platelet Volume 11.1 fL (9.4-12.4); Platelet Count 261 K/mcL (140-400); Red Blood Count 3.52 M/mcL (4.19-5.50); Red Cell Distribution Width 15.2 % (11.5-14.5); White Blood Count 7.5 K/mcL (4.3-11.1)
[2021-12-24 02:06] LABS: Calcium 8.6 mg/dL (8.6-10.3); Potassium 3.3 mEq/L (3.5-5.1)
[2021-12-24] MEDS: Acetaminophen 325 MG TABLET PO PRN (16:26)
[2021-12-24] MEDS: carvediloL 6.25 MG TABLET PO SCH (18:00)
[2021-12-24 20:47] LABS: Protein/Creatinine Ratio,Urine 0.09 mg/mg (0.00-0.20); Sodium, Urine 18.5 mEq/L
[2021-12-25] MEDS: Acetaminophen 325 MG TABLET PO PRN ×2 (01:48→08:38)
[2021-12-25 03:25] LABS: Hematocrit 29.2 % (37.5-50.1); Hemoglobin 9.3 g/dL (12.9-16.9); Mean Corpuscular HGB Conc 31.8 g/dL (31.6-35.5); Mean Corpuscular Hemoglobin 29.3 pg (28.0-33.3); Mean Corpuscular Volume 92.1 fL (83.0-100.0); Mean Platelet Volume 10.9 fL (9.4-12.4); Platelet Count 252 K/mcL (140-400); Red Blood Count 3.17 M/mcL (4.19-5.50); Red Cell Distribution Width 15.2 % (11.5-14.5); White Blood Count 6.6 K/mcL (4.3-11.1)
[2021-12-25 03:47] LABS: Calcium 8.4 mg/dL (8.6-10.3); Magnesium 2.3 mg/dL (1.6-2.6); Phosphorous 2.9 mg/dL (2.7-4.5); Potassium 3.5 mEq/L (3.5-5.1)
[2021-12-25] MEDS: carvediloL 6.25 MG TABLET PO SCH ×2 (07:57→16:21)
[2021-12-25] MEDS: Sennosides 8.6 MG TABLET PO SCH (08:01)
[2021-12-25] MEDS: Cholecalciferol (D-3) 1,000 UNIT (25MCG) TABLET PO SCH (08:01)
[2021-12-25] MEDS: Aspirin Enteric Coated 81 MG Tablet PO SCH (08:01)
[2021-12-25] MEDS ORDERED: amLODIPine 5 MG TABLET PO SCH (11:15)
[2021-12-25] MEDS ORDERED: Perflutren Lipid Microsphere 1.3 ML in 0.9 % Sodium Chloride 8.7 ML IVP PRN (13:59)
[2021-12-25] MEDS: Mirtazapine 15 MG TABLET PO SCH (21:45)
[2021-12-26 05:06] LABS: Hematocrit 32.1 % (37.5-50.1); Hemoglobin 10.5 g/dL (12.9-16.9); Mean Corpuscular HGB Conc 32.7 g/dL (31.6-35.5); Mean Corpuscular Hemoglobin 29.8 pg (28.0-33.3); Mean Corpuscular Volume 91.2 fL (83.0-100.0); Mean Platelet Volume 10.9 fL (9.4-12.4); Platelet Count 301 K/mcL (140-400); Red Blood Count 3.52 M/mcL (4.19-5.50); Red Cell Distribution Width 15.2 % (11.5-14.5); White Blood Count 7.1 K/mcL (4.3-11.1)
[2021-12-26 05:24] LABS: Calcium 8.8 mg/dL (8.6-10.3); Potassium 3.7 mEq/L (3.5-5.1)
[2021-12-26] MEDS: Sennosides 8.6 MG TABLET PO SCH (08:35)
[2021-12-26] MEDS: carvediloL 6.25 MG TABLET PO SCH ×2 (08:35→16:41)
[2021-12-26] MEDS: Cholecalciferol (D-3) 1,000 UNIT (25MCG) TABLET PO SCH (08:38)
[2021-12-26] MEDS: Aspirin Enteric Coated 81 MG Tablet PO SCH (08:38)
[2021-12-26] MEDS: amLODIPine 5 MG TABLET PO SCH (08:52)
[2021-12-26] MEDS ORDERED: amLODIPine 5 MG TABLET PO SCH (09:00)
[2021-12-26] MEDS: Megestrol Acetate 400 MG/10 ML UDC PO SCH (12:28)
[2021-12-26] MEDS: Mirtazapine 15 MG TABLET PO SCH (20:18)
[2021-12-27 02:29] LABS: Calcium 8.7 mg/dL (8.6-10.3); Potassium 4.1 mEq/L (3.5-5.1)
[2021-12-27] MEDS: amLODIPine 5 MG TABLET PO SCH (09:28)
[2021-12-27] MEDS: Sennosides 8.6 MG TABLET PO SCH (09:28)
[2021-12-27] MEDS: carvediloL 6.25 MG TABLET PO SCH (09:28)
[2021-12-27] MEDS: Megestrol Acetate 400 MG/10 ML UDC PO SCH (09:28)
[2021-12-27] MEDS: Aspirin Enteric Coated 81 MG Tablet PO SCH (09:28)
[2021-12-27] MEDS: Cholecalciferol (D-3) 1,000 UNIT (25MCG) TABLET PO SCH (09:30)
[2021-12-27 15:17] VITALS: BP 157/41; PULSE 79; TEMP 98.4; O2SAT 94
== END 2021-12-27 19:30 | disposition home health service (06) ==
LOC: EMEROOARM 19:40 → 2NENU 19:40 → SUATTDRO 22:38 → 2NENU 23:43
PROVIDERS: ADMIT Internal Medicine; ATTEND Internal Medicine

== ENCOUNTER 2021-12-28 17:08 | Observation (INO) ==
[2021-12-28 19:09] LABS: Albumin 3.2 g/dL (3.5-5.7); Albumin/Globulin Ratio 1.1 (1.1-2.2); Bilirubin,Total 0.6 mg/dL (0.3-1.0); Calcium 8.4 mg/dL (8.6-10.3); Total Protein 6.2 g/dL (6.4-8.9)
[2021-12-28 19:20] LABS: Basophils # 0.1 K/mcL (0.0-0.2); Basophils % 0.9 %; Eosinophils # 0.6 K/mcL (0.0-0.6); Eosinophils % 5.7 %; Hemoglobin 11.2 g/dL (12.9-16.9); Immature Granulocytes % 0.5 % (0-4); Lymphocytes # 1.6 K/mcL (0.6-4.6); Lymphocytes % 15.6 %; Mean Corpuscular HGB Conc 32.9 g/dL (31.6-35.5); Mean Corpuscular Hemoglobin 30.4 pg (28.0-33.3); Mean Corpuscular Volume 92.4 fL (83.0-100.0); Mean Platelet Volume 10.9 fL (9.4-12.4); Monocytes # 1.1 K/mcL (0.0-1.3); Monocytes % 10.3 %; Neutrophils # 6.9 K/mcL (1.6-8.9); Platelet Count 347 K/mcL (140-400); Red Blood Count 3.68 M/mcL (4.19-5.50); Red Cell Distribution Width 15.4 % (11.5-14.5); White Blood Count 10.3 K/mcL (4.3-11.1)
[2021-12-28] MEDS ORDERED: 0.9 % Sodium Chloride 500 ML IVC ONE (20:09)
[2021-12-28] MEDS ORDERED: *HR* HYDROcodone/Acet 5/325 mg TABLET PO PRN (21:16)
[2021-12-28] MEDS ORDERED: *HR* OxyCODONE Immed Rel 5 MG TABLET PO PRN (21:16)
[2021-12-28] MEDS ORDERED: Ondansetron ODT 4 MG TAB.RAPDIS SL PRN (21:16)
[2021-12-28] MEDS ORDERED: Melatonin 3 MG TABLET PO PRN (21:16)
[2021-12-28] MEDS ORDERED: Naloxone 0.4 MG/ML INJ IVP PRN (21:16)
[2021-12-28] MEDS ORDERED: Acetaminophen 325 MG TABLET PO PRN (21:16)
[2021-12-28] MEDS ORDERED: Ipratropium/Albuterol Neb 3 ML IH PRN (21:54)
[2021-12-29 07:25] LABS: Hematocrit 30.2 % (37.5-50.1); Hemoglobin 9.7 g/dL (12.9-16.9); Mean Corpuscular HGB Conc 32.1 g/dL (31.6-35.5); Mean Corpuscular Hemoglobin 29.7 pg (28.0-33.3); Mean Corpuscular Volume 92.4 fL (83.0-100.0); Mean Platelet Volume 11.3 fL (9.4-12.4); Platelet Count 302 K/mcL (140-400); Red Blood Count 3.27 M/mcL (4.19-5.50); Red Cell Distribution Width 15.5 % (11.5-14.5); White Blood Count 8.8 K/mcL (4.3-11.1)
[2021-12-29 07:37] LABS: Calcium 8.5 mg/dL (8.6-10.3); Phosphorous 3.4 mg/dL (2.7-4.5); Potassium 3.4 mEq/L (3.5-5.1)
[2021-12-29] MEDS ORDERED: Torsemide 20 MG TABLET PO SCH (08:00)
[2021-12-29] MEDS: Aspirin Enteric Coated 81 MG Tablet PO SCH (08:56)
[2021-12-29] MEDS: carvediloL 6.25 MG TABLET PO SCH ×2 (08:56→20:09)
[2021-12-29] MEDS: amLODIPine 5 MG TABLET PO SCH (08:56)
[2021-12-29] MEDS: 0.9 % Sodium Chloride 1,000 ML IVC SCH (14:32)
[2021-12-29] MEDS: Mirtazapine 15 MG TABLET PO SCH (20:11)
[2021-12-30 05:57] LABS: Basophils # 0.1 K/mcL (0.0-0.2); Basophils % 1.1 %; Eosinophils # 0.5 K/mcL (0.0-0.6); Eosinophils % 6.7 %; Hematocrit 29.6 % (37.5-50.1); Hemoglobin 9.7 g/dL (12.9-16.9); Immature Granulocytes % 0.4 % (0-4); Lymphocytes # 2.1 K/mcL (0.6-4.6); Lymphocytes % 26.2 %; Mean Corpuscular HGB Conc 32.8 g/dL (31.6-35.5); Mean Corpuscular Hemoglobin 30.1 pg (28.0-33.3); Mean Corpuscular Volume 91.9 fL (83.0-100.0); Mean Platelet Volume 11.2 fL (9.4-12.4); Monocytes # 0.9 K/mcL (0.0-1.3); Monocytes % 10.7 %; Neutrophils # 4.4 K/mcL (1.6-8.9); Platelet Count 312 K/mcL (140-400); Red Blood Count 3.22 M/mcL (4.19-5.50); Red Cell Distribution Width 15.3 % (11.5-14.5); Segmented Neutrophils % 54.9 %
[2021-12-30 06:13] LABS: Calcium 8.4 mg/dL (8.6-10.3); Potassium 3.5 mEq/L (3.5-5.1)
[2021-12-30] MEDS: carvediloL 6.25 MG TABLET PO SCH ×2 (08:19→20:30)
[2021-12-30] MEDS: Aspirin Enteric Coated 81 MG Tablet PO SCH (08:19)
[2021-12-30] MEDS: amLODIPine 5 MG TABLET PO SCH (08:20)
[2021-12-30] MEDS: Megestrol Acetate 400 MG/10 ML UDC PO SCH (08:24)
[2021-12-30] MEDS: 0.9 % Sodium Chloride 1,000 ML IVC SCH (11:50)
[2021-12-30] MEDS: Mirtazapine 15 MG TABLET PO SCH (20:30)
[2021-12-30 23:12] LABS: Bilirubin,Urine Negative (Negative); Blood,Urine Negative (Negative); Clarity,Urine Clear (Clear); Color,Urine Light-Yellow (Yellow); Glucose,Urine (UA) Normal (Normal); Ketones,Urine Negative (Negative); Leukocyte Esterase,Urine Negative (Negative); Nitrite,Urine Negative (Negative); Protein,Urine Negative (Neg-Trace); Specific Gravity,Urine 1.012 (1.010-1.025); Urobilinogen,Urine Normal (Normal)
[2021-12-31 07:29] LABS: Calcium 8.6 mg/dL (8.6-10.3); Potassium 3.9 mEq/L (3.5-5.1)
[2021-12-31] MEDS: 0.9 % Sodium Chloride 1,000 ML IVC SCH (08:27)
[2021-12-31] MEDS: Aspirin Enteric Coated 81 MG Tablet PO SCH (08:30)
[2021-12-31] MEDS: carvediloL 6.25 MG TABLET PO SCH ×2 (08:30→20:01)
[2021-12-31] MEDS: Megestrol Acetate 400 MG/10 ML UDC PO SCH (08:31)
[2021-12-31] MEDS: amLODIPine 5 MG TABLET PO SCH (08:31)
[2021-12-31 12:31] LABS: Prostate Specific Antigen 0.58 ng/mL (Less than 4.00)
[2021-12-31] MEDS: Mirtazapine 15 MG TABLET PO SCH (20:02)
[2022-01-01] MEDS: Megestrol Acetate 400 MG/10 ML UDC PO SCH (09:02)
[2022-01-01] MEDS: amLODIPine 5 MG TABLET PO SCH (09:02)
[2022-01-01] MEDS: Aspirin Enteric Coated 81 MG Tablet PO SCH (09:09)
[2022-01-01] MEDS: carvediloL 6.25 MG TABLET PO SCH ×2 (09:09→21:19)
[2022-01-01] MEDS: Mirtazapine 15 MG TABLET PO SCH (21:23)
[2022-01-02] MEDS: carvediloL 6.25 MG TABLET PO SCH ×2 (09:37→19:50)
[2022-01-02] MEDS: Megestrol Acetate 400 MG/10 ML UDC PO SCH (09:37)
[2022-01-02] MEDS: Aspirin Enteric Coated 81 MG Tablet PO SCH (09:38)
[2022-01-02] MEDS: amLODIPine 5 MG TABLET PO SCH (09:38)
[2022-01-02 10:55] LABS: Hematocrit 30.1 % (37.5-50.1); Hemoglobin 9.6 g/dL (12.9-16.9)
[2022-01-02 15:20] LABS: Kappa Qnt Free Light Chains 33.96 mg/L (3.30-19.40); Lambda Qnt Free Light Chains 36.01 mg/L (5.71-26.30)
[2022-01-02] MEDS: Mirtazapine 15 MG TABLET PO SCH (19:51)
[2022-01-03 04:32] LABS: Alpha 2 Globulin (PEP) 0.81 g/dL (0.48-1.05); Beta Globulin (PEP) 0.79 g/dL (0.48-1.10)
[2022-01-03] MEDS: carvediloL 6.25 MG TABLET PO SCH ×2 (09:19→20:19)
[2022-01-03] MEDS: Megestrol Acetate 400 MG/10 ML UDC PO SCH (09:19)
[2022-01-03] MEDS: Aspirin Enteric Coated 81 MG Tablet PO SCH (09:19)
[2022-01-03] MEDS: Torsemide 20 MG TABLET PO SCH (09:19)
[2022-01-03] MEDS: amLODIPine 5 MG TABLET PO SCH (09:20)
[2022-01-03 15:37] LABS: IFE Reflexed NOT DONE
[2022-01-03] MEDS: Mirtazapine 15 MG TABLET PO SCH (20:19)
[2022-01-04] MEDS: Megestrol Acetate 400 MG/10 ML UDC PO SCH (09:39)
[2022-01-04] MEDS: amLODIPine 5 MG TABLET PO SCH (09:40)
[2022-01-04] MEDS: Aspirin Enteric Coated 81 MG Tablet PO SCH (09:40)
[2022-01-04] MEDS: Torsemide 20 MG TABLET PO SCH (09:40)
[2022-01-04] MEDS: carvediloL 6.25 MG TABLET PO SCH ×2 (09:40→20:36)
[2022-01-04] MEDS: *HR* Heparin 5,000 UNIT/ML VIAL SQ SCH (17:26)
[2022-01-04] MEDS: Mirtazapine 15 MG TABLET PO SCH (20:36)
[2022-01-05 03:09] VITALS: TEMP 98.3
[2022-01-05] MEDS: *HR* Heparin 5,000 UNIT/ML VIAL SQ SCH (05:38)
[2022-01-05 07:01] VITALS: BP 162/69; PULSE 74; O2SAT 97
[2022-01-05] MEDS: Torsemide 20 MG TABLET PO SCH (08:11)
[2022-01-05] MEDS: Megestrol Acetate 400 MG/10 ML UDC PO SCH (08:11)
[2022-01-05] MEDS: amLODIPine 5 MG TABLET PO SCH (08:11)
[2022-01-05] MEDS: carvediloL 6.25 MG TABLET PO SCH (08:11)
[2022-01-05] MEDS: Aspirin Enteric Coated 81 MG Tablet PO SCH (08:11)
== END 2022-01-05 09:56 ==
LOC: 3BNU 17:08 → EMEROOARM 17:08 → SUATTDRO 21:12 → 3BNU 22:04
PROVIDERS: ADMIT Family Medicine; ATTEND Nurse Practitioner